=== PATIENT | female | born 1940 | race African-American/Black ===

== ENCOUNTER 2017-02-20 21:31 | Emergency (ER) | payer MEDICARE, MEDICAID ==
--- NOTE | 2017-02-20 21:50 | ER Document Report ---
ED Respiratory Problem - General Stated Complaint: BREATHING DIFFICULTY Time seen by provider: 21:45 Notes: Patient is a 76-year-old female that comes emergency department for chief complaint of difficulty breathing, she comes by EMS from [facility], she is a full code. EMS reports that patient is nonverbal with Alzheimer's, contractures, history of CHF and on lasix 40 mg BID. No cough or fever reported. On initial presentation patient with what appeared to be loud rhonchi heard without auscultation, EMS reports that patient had been " suctioned orally and had about 1 L of secretions". Patient also has a gastric feeding tube. TRAVEL OUTSIDE OF THE [place] IN LAST 30 DAYS: No - Related Data Allergies/Adverse Reactions: No Known Allergies Allergy (Verified 02/20/17 23:56) Past Medical History - General Information source: Transfer Record, Emergency Med Personnel - Social History Smoking Status: Never Smoker Frequency of alcohol use: None Drug Abuse: None Lives with: Skilled Nursing Family History: None - Past Medical History Cardiac Medical History: Reports: Hx Hypercholesterolemia, Hx Hypertension Pulmonary Medical History: Reports: Hx Sleep Apnea Comment Only: Hx Tuberculosis - UNKNOWN Neurological Medical History: Reports: Hx Seizures Endocrine Medical History: Reports: Hx Diabetes Mellitus Type 2 GI Medical History: Reports: Hx Gastroesophageal Reflux Disease Musculoskeltal Medical History: Reports Hx Arthritis Psychiatric Medical History: Reports: Hx Dementia, Hx Depression, Hx Schizophrenia Past Surgical History: Denies: Hx Hysterectomy, Hx Pacemaker - Immunizations Hx Diphtheria, Pertussis, Tetanus Vaccination: Yes Hx Pneumococcal Vaccination: 02/20/09 Review of Systems - Review of Systems Constitutional: No symptoms reported EENT: No symptoms reported Cardiovascular: No symptoms reported Respiratory: See HPI Gastrointestinal: No symptoms reported Genitourinary: No symptoms reported Female Genitourinary: No symptoms reported Musculoskeletal: No symptoms reported Skin: No symptoms reported Hematologic/Lymphatic: No symptoms reported Neurological/Psychological: No symptoms reported Physical Exam - Vital signs Vitals: Temp 97.6 F 02/20/17 21:35 Interpretation: Normal - General General appearance: Other - Patient sitting with legs contracted under her, right arm contracted over her, eyes open and looking at people but not responding otherwise - HEENT Head: Normocephalic, Atraumatic Eyes: Normal Conjunctiva: Normal Eyelashes: Normal Pupils: PERRL Mucous membranes: Dry Pharynx: Normal Neck: Normal - Respiratory Respiratory status: Tachypnea Breath sounds: Other - Some scattered rhonchi in the right lung region, no rales , no other abnormality noted Chest palpation: Normal - Cardiovascular Rhythm: Regular. No: Tachycardia Heart sounds: Normal auscultation, S1 appreciated, S2 appreciated - Abdominal Inspection: Normal, Other - Gastric tube present, appears new, appears clear, no surrounding erythema or other abnormalities Distension: No distension Bowel sounds: Normal Tenderness: Nontender. No: Tender Organomegaly: No organomegaly - Back Back: Normal, Nontender - Extremities General upper extremity: Other - Right arm contracted at her side General lower extremity: Other - Lower extremities contracted underneath her - Neurological Neuro grossly intact: Yes Cognition: Normal Orientation: AAOx4 Jazmine Coma Scale Eye Opening: Spontaneous Jazmine Coma Scale Verbal: Oriented Jazmine Coma Scale Motor: Obeys Commands Jazmine Coma Scale Total: 15 Speech: Normal Motor strength normal: LUE, RUE, LLE, RLE Sensory: Normal - Psychological Associated symptoms: Normal affect, Normal mood - Skin Skin Temperature: Warm Skin Moisture: Dry Skin Color: Normal Course - Re-evaluation Re-evalutation: Patient makes eye contact and follows me with her eyes but does not respond verbally. Patient with tachypnea, a few scattered rhonchi, no overt lower extremity edema, no Rales. Patient had a new blood pressure reading of 60s over 40s, I was called bedside, patient evaluated at bedside and noted to have increased tachypnea compared to prior, manual blood pressure performed and shows blood pressure has dropped to 80/40. No tachycardia, no hypoxia. Dr. Conway to bedside. X-ray came to bedside, chest x-ray generally appears clear, report pending. Patient has an 18 -gauge in the left before meals and a 20-gauge in the right forearm, IV fluids initiated. After a single IV fluid bolus blood pressure returned to normal. Rhonchi and vocalising resolved. Called primary longterm and inquired about CODE STATUS, in their system it is listed that she is full cod status/CPR, patient does not have a DO NOT RESUSCITATE sheet at the facility by their report and none was brought to our facility. Attempted to contact power of senior trial attorney at [phone] but no response was obtained. Chest x-ray, blood gas, CBC, chemistry generally unremarkable. Cardiac enzymes not elevated. EKG showing no ischemic findings or significant changes from prior. Patient given Ativan, after this tachypnea resolved. Patient taken off BiPAP because of workup and clear lung sounds. Patient very well appearing off of BiPAP on nasal cannula. After about an hour patient taken off nasal cannula as well. Patient with no decompensation on room air, monitored for an extended period. Discussed with Dr. Harrison again, patient has remained normotensive and not hypoxic for hours, is doing extremely well off BiPAP, has no symptoms after single bolus of IV fluids, workup unremarkable. Patient will be discharged back to longterm with follow-up with her provider and return precautions in place. - Vital Signs Vital signs: Temp Pulse Resp BP Pulse Ox 97.5 F 21 H 126/65 H 99 02/21/17 03:40 02/21/17 03:46 02/21/17 03:46 02/21/17 03:46 - Laboratory Result Diagrams: 02/20/17 21:50 02/20/17 21:50 Laboratory results interpreted by me: 02/20/17 02/20/17 02/20/17 21:50 21:50 22:30 RBC 3.24 L Hgb 10.4 L Hct 31.5 L RDW 15.3 H Plt Count 142 L VBG pH 7.45 H Carbon Dioxide 31 H BUN 63 H Glucose 119 H AST 39 H Total Protein 9.1 H Discharge - Discharge Clinical Impression: Shortness of breath, Hyperventilation Condition: Stable Disposition: HOME, SELF-CARE Additional Instructions: Secretions have cleared, she did require some hydration. Workup shows no acute abnormalities. Follow-up with primary care. Return the emergency department for any concerning symptoms including rapid or labored breathing, abnormal vital signs, fever, or any other concerning symptoms. Referrals: SANTOS ZULUAGA MD [Primary Care Provider] - Follow up as needed
[2017-02-20 22:17] LABS: ABSOLUTE EOSINOPHILS # (AUTO) 0.2 10^3/uL (0.0-0.6); ABSOLUTE LYMPHOCYTES (AUTO) 2.8 10^3/uL (0.5-4.7); ABSOLUTE MONOCYTES (AUTO) 0.5 10^3/uL (0.1-1.4); BASOPHILS % (AUTO) 0.5 % (0-2); EOSINOPHILS % (AUTO) 3.1 % (0-6); HEMATOCRIT 31.5 % (36.0-47.0); HEMOGLOBIN 10.4 g/dL (12.0-15.5); HGB HCT DIFFERENCE -0.3; MEAN CORPUSCULAR HEMOGLOBIN 32.1 pg (27.0-33.4); MEAN CORPUSCULAR HGB CONC 33.1 g/dL (32.0-36.0); MEAN CORPUSCULAR VOLUME 97 fl (80-97); MONOCYTES % (AUTO) 7.9 % (3-13); RED BLOOD COUNT 3.24 10^6/uL (3.72-5.28); RED CELL DISTRIBUTION WIDTH 15.3 % (11.5-14.0); SEGMENTED NEUTROPHILS % (AUTO) 45.5 % (42-78); WHITE BLOOD COUNT 6.6 10^3/uL (4.0-10.5)
[2017-02-20] MEDS ORDERED: NORMAL SALINE 1000 ML 1,000 ML IV ONE ×2 (22:30)
[2017-02-20 22:36] LABS: VENOUS BLOOD BASE EXCESS 5.8 mmol/L; VENOUS BLOOD HCO3 30.6 mmol/L (20-32); VENOUS BLOOD PCO2 45.4 mmHg (35-63); VENOUS BLOOD PH 7.45 (7.30-7.42)
[2017-02-20 22:37] LABS: ALANINE AMINOTRANSFERASE 16 U/L (9-52); ALBUMIN 3.9 g/dL (3.5-5.0); ALKALINE PHOSPHATASE 94 U/L (38-126); ANION GAP 15 (5-19); ASPARTATE AMINO TRANSFERASE 39 U/L (14-36); BILIRUBIN,DIRECT 0.3 mg/dL (0.0-0.4); BILIRUBIN,TOTAL 0.5 mg/dL (0.2-1.3); BLOOD UREA NITROGEN 63 mg/dL (7-20); CALCIUM 9.5 mg/dL (8.4-10.2); CARBON DIOXIDE 31 mmol/L (22-30); CHLORIDE 98 mmol/L (98-107); CREATINE KINASE 65 U/L (30-135); CREATININE RESULT 0.77 mg/dL (0.52-1.25); GLUCOSE 119 mg/dL (75-110); TOTAL PROTEIN 9.1 g/dL (6.3-8.2)
--- NOTE | 2017-02-20 22:47 | EKG REPORT ---
SEVERITY:- ABNORMAL ECG - SINUS RHYTHM VENTRICULAR PREMATURE COMPLEX LEFT VENTRICULAR HYPERTROPHY NONSPECIFIC T ABNORMALITIES, INFERIOR LEADS PROLONGED QT INTERVAL : Confirmed by: John Ganadra 20-Feb-2017 22:46:22
[2017-02-20 22:49] LABS: CREATINE KINASE MB 1.41 ng/mL (<4.55)
[2017-02-20 22:50] LABS: TROPONIN I < 0.012 ng/mL
[2017-02-20] MEDS ORDERED: LORAZEPAM 0.5 MG TABLET PO ONE (23:17)
[2017-02-21 03:49] VITALS: BP 126/65
--- NOTE | 2017-02-22 00:59 | ER Document Report ---
Doctor's Note Notes: 02/22/17 00:57 I was giving a culture form from the nurse on that the patient has a gram- positive cocci preliminary blood culture. I did review the patient's note from last night. Appears the patient initially has difficulty breathing and was hypotensive. It appears that she responded well to simple fluid bolus her left ear evaluation was otherwise unremarkable. She apparently did well for several hours and therefore is discharged back to [facility]. I'll have the charge nurse call the facility back. If the patient is feeling unwell in any way, has any abnormal vital signs, or has a fever she is to return to ER immediately for evaluation. If she is looking very well and has normal vital signs than she does not have to come back immediately until we have the final results of the culture.
== END 2017-02-21 04:00 | disposition home or self-care (01) ==
LOC: ER 21:31
DX: R06.02 Shortness of breath (principal); R06.4 Hyperventilation; R06.00 Dyspnea, unspecified; G30.9 Alzheimer's disease, unspecified; F02.80 Dementia in other diseases classified elsewhere, unspecified severity, without behavioral disturbance, psychotic disturbance, mood disturbance, and anxiety; I50.9 Heart failure, unspecified; E78.00 Pure hypercholesterolemia, unspecified; I10 Essential (primary) hypertension; E11.9 Type 2 diabetes mellitus without complications; K21.9 Gastro-esophageal reflux disease without esophagitis; Z93.1 Gastrostomy status
CPT/HCPCS: 93005; 99285; 96361; 96374; 36415; 87040; 82553; 82550; 85025; 87077; 80053; 84484; 87186; 82803; 71010; 93010; 94660; J7030; A9270

== ENCOUNTER 2017-02-25 04:43 | Emergency (ER) | payer MEDICARE, MEDICAID ==
--- NOTE | 2017-02-25 04:56 | ER Document Report ---
ED Respiratory Problem - General Stated Complaint: DIFFICULITY BREATHING Time seen by provider: 04:45 Notes: Patient is a 76-year-old female that comes emergency department from [facility] for chief complaint of difficulty breathing. EMS reports that patient was initially hypoxic, she was suctioned from oral secretions and after this her oxygen saturations normalized. Patient has a history of Alzheimer's, contractures, CHF and when necessary Lasix for edema. She is a full code. No fever, no altered mental status from baseline, no other symptoms reported. Patient has a gastric feeding tube. TRAVEL OUTSIDE OF THE [place] IN LAST 30 DAYS: No - Related Data Allergies/Adverse Reactions: No Known Allergies Allergy (Verified 02/20/17 23:56) Past Medical History - General Information source: Transfer Record, Emergency Med Personnel - Social History Smoking Status: Never Smoker Frequency of alcohol use: None Drug Abuse: None Lives with: Care Home Family History: None - Past Medical History Cardiac Medical History: Reports: Hx Hypercholesterolemia, Hx Hypertension Pulmonary Medical History: Reports: Hx Sleep Apnea Comment Only: Hx Tuberculosis - UNKNOWN Neurological Medical History: Reports: Hx Seizures Endocrine Medical History: Reports: Hx Diabetes Mellitus Type 2 GI Medical History: Reports: Hx Gastroesophageal Reflux Disease Musculoskeltal Medical History: Reports Hx Arthritis Psychiatric Medical History: Reports: Hx Dementia, Hx Depression, Hx Schizophrenia Past Surgical History: Reports: Hx Abdominal Surgery - Peg tube, Hx Cardiac Surgery - Pacemaker. Denies: Hx Hysterectomy, Hx Pacemaker - Immunizations Hx Diphtheria, Pertussis, Tetanus Vaccination: Yes Hx Pneumococcal Vaccination: 02/20/09 Review of Systems - Review of Systems Constitutional: No symptoms reported EENT: No symptoms reported Cardiovascular: No symptoms reported Respiratory: See HPI Gastrointestinal: No symptoms reported Genitourinary: No symptoms reported Female Genitourinary: No symptoms reported Musculoskeletal: No symptoms reported Skin: No symptoms reported Hematologic/Lymphatic: No symptoms reported Neurological/Psychological: No symptoms reported Physical Exam - Vital signs Vitals: Resp 19 02/25/17 04:52 Interpretation: Normal - General General appearance: Appears well, Alert In distress: None - Patient looks around the room, responds painful stimuli, is nonverbal, reportedly at baseline - HEENT Head: Normocephalic, Atraumatic Eyes: Normal Conjunctiva: Normal Eyelashes: Normal Pupils: PERRL Mucous membranes: Other - Moderately large amount of oral secretions Neck: Normal - Respiratory Respiratory status: No respiratory distress, Tachypnea. No: Labored Chest status: Nontender Breath sounds: Normal. No: Decreased air movement, Nonproductive cough, Wheezing Chest palpation: Normal - Cardiovascular Rhythm: Regular, Tachycardia - Borderline Heart sounds: Normal auscultation, S1 appreciated, S2 appreciated Murmur: Yes - Abdominal Inspection: Normal Distension: No distension Bowel sounds: Normal Tenderness: Nontender. No: Tender, Guarding Organomegaly: No organomegaly - Back Back: Normal, Nontender - Extremities General upper extremity: Other - Right arm contracted worse than the left General lower extremity: Other - Bilateral lower extremity contractures, no peripheral edema noted, otherwise unremarkable exam - Neurological Sensory: Normal - Skin Skin Temperature: Warm Skin Moisture: Dry Skin Color: Normal Course - Re-evaluation Re-evalutation: Patient initially had a large amount of oral secretions and patient has tachypnea. Oral secretions suctioned by respiratory at bedside. Afterwards tachypnea resolved. Lungs clear, no hypoxia. No hypoxia on room air. On reexamination patient has mild tachypnea again, appears anxious, began to be thickening after being again suctioned orally (much less obtain second time). Patient given her PRN Ativan 0.5 mg tablet. CBC, chemistry, cardiac enzymes, EKG, venous blood gas, BNP all unremarkable and at baseline. Mild elevation of BNP, patient given a small amount of IV fluids. Patient monitored again, maintains on room air with no difficulty, became calm and relaxed, remained well appearing during her monitoring period. Patient had the same presentation about a week ago in this department. Will recommend suctioning of her oral secretions to prevent difficulty with airway. No acute findings. Stable for transfer back to long-term care facility. - Vital Signs Vital signs: Temp Pulse Resp BP Pulse Ox 98.2 F 35 H 96/56 L 96 02/25/17 05:03 02/25/17 05:30 02/25/17 05:30 02/25/17 05:30 - Laboratory Result Diagrams: 02/25/17 04:54 02/25/17 04:54 Laboratory results interpreted by me: 02/25/17 02/25/17 02/25/17 04:54 04:54 05:18 RBC 3.02 L Hgb 9.8 L Hct 29.3 L RDW 15.6 H VBG pH 7.50 H BUN 49 H Direct Bilirubin 0.5 H Total Protein 9.2 H Discharge - Discharge Clinical Impression: Excessive oral secretions, Tachypnea Condition: Stable Disposition: HOME, SELF-CARE Additional Instructions: Patient has excessive oral secretions, she needs to be regularly suctioned. When the secretions buildup her oxygen level drops and she has rapid breathing. However her chest x-ray, her evaluation after suctioning, and her entire workup shows no acute abnormality. Follow up with her primary provider. Return to the emergency department for any concerning symptoms.
[2017-02-25 05:13] LABS: ABSOLUTE BASOPHILS # (AUTO) 0.1 10^3/uL (0.0-0.2); ABSOLUTE EOSINOPHILS # (AUTO) 0.2 10^3/uL (0.0-0.6); ABSOLUTE LYMPHOCYTES (AUTO) 2.5 10^3/uL (0.5-4.7); ABSOLUTE MONOCYTES (AUTO) 0.8 10^3/uL (0.1-1.4); ABSOLUTE NEUT (AUTO) 5.3 10^3/uL (1.7-8.2); BASOPHILS % (AUTO) 0.9 % (0-2); HEMATOCRIT 29.3 % (36.0-47.0); HEMOGLOBIN 9.8 g/dL (12.0-15.5); HGB HCT DIFFERENCE 0.1; LYMPHOCYTES % (AUTO) 28.5 % (13-45); MEAN CORPUSCULAR HEMOGLOBIN 32.4 pg (27.0-33.4); MEAN CORPUSCULAR HGB CONC 33.4 g/dL (32.0-36.0); MEAN CORPUSCULAR VOLUME 97 fl (80-97); MONOCYTES % (AUTO) 8.6 % (3-13); RED BLOOD COUNT 3.02 10^6/uL (3.72-5.28); RED CELL DISTRIBUTION WIDTH 15.6 % (11.5-14.0); WHITE BLOOD COUNT 8.8 10^3/uL (4.0-10.5)
[2017-02-25 05:27] LABS: ALANINE AMINOTRANSFERASE 17 U/L (9-52); ALBUMIN 3.7 g/dL (3.5-5.0); ALKALINE PHOSPHATASE 87 U/L (38-126); ANION GAP 11 (5-19); ASPARTATE AMINO TRANSFERASE 24 U/L (14-36); BILIRUBIN,DIRECT 0.5 mg/dL (0.0-0.4); BILIRUBIN,TOTAL 0.5 mg/dL (0.2-1.3); BLOOD UREA NITROGEN 49 mg/dL (7-20); CALCIUM 9.4 mg/dL (8.4-10.2); CARBON DIOXIDE 30 mmol/L (22-30); CHLORIDE 103 mmol/L (98-107); CREATINE KINASE 64 U/L (30-135); CREATININE RESULT 0.79 mg/dL (0.52-1.25); GLUCOSE 110 mg/dL (75-110); POTASSIUM 4.8 mmol/L (3.6-5.0); SODIUM 144.4 mmol/L (137-145); TOTAL PROTEIN 9.2 g/dL (6.3-8.2)
[2017-02-25 05:34] LABS: VENOUS BLOOD BASE EXCESS 5.2 mmol/L; VENOUS BLOOD HCO3 28.7 mmol/L (20-32); VENOUS BLOOD PCO2 37.9 mmHg (35-63); VENOUS BLOOD PH 7.5 (7.30-7.42)
[2017-02-25 05:39] LABS: CREATINE KINASE MB 0.76 ng/mL (<4.55)
[2017-02-25 05:52] LABS: TROPONIN I < 0.012 ng/mL
[2017-02-25] MEDS ORDERED: NORMAL SALINE 1000 ML 500 ML IV ONE (05:54)
[2017-02-25] MEDS ORDERED: LORAZEPAM 0.5 MG TABLET PO ONE (06:00)
--- NOTE | 2017-02-25 08:18 | EKG REPORT ---
SEVERITY:- BORDERLINE ECG - SINUS TACHYCARDIA LEFT AXIS DEVIATION : Confirmed by: Everett Batista MD 25-Feb-2017 08:17:18
[2017-02-25 08:26] VITALS: BP 137/77
== END 2017-02-25 08:29 | disposition home or self-care (01) ==
LOC: ER 04:43
DX: R06.00 Dyspnea, unspecified (principal); R06.82 Tachypnea, not elsewhere classified; K11.7 Disturbances of salivary secretion; E78.00 Pure hypercholesterolemia, unspecified; I10 Essential (primary) hypertension; E11.9 Type 2 diabetes mellitus without complications; G30.9 Alzheimer's disease, unspecified; F02.80 Dementia in other diseases classified elsewhere, unspecified severity, without behavioral disturbance, psychotic disturbance, mood disturbance, and anxiety; I50.9 Heart failure, unspecified; Z95.0 Presence of cardiac pacemaker; Z93.1 Gastrostomy status
CPT/HCPCS: 93005; 99285; 96360; 36415; 82553; 82550; 85025; 80053; 84484; 82803; 83880; 71010; 93010; J7030; A9270

== ENCOUNTER 2017-03-06 03:14 | Emergency (ER) | payer MEDICARE, MEDICAID ==
--- NOTE | 2017-03-06 03:25 | ER Document Report ---
ED General - General Stated Complaint: G TUBE MALFUNCTION Time Seen by Provider: 03/06/17 03:20 Notes: Patient is a 76-year-old female that comes emergency department with chief complaint of PEG tube leaking which apparently began tonight. Patient comes by EMS from long-term care facility. Patient is demented, nonverbal, has multiple limb contractures. No other abnormalities reported including fever. TRAVEL OUTSIDE OF THE [place] IN LAST 30 DAYS: No - Related Data Allergies/Adverse Reactions: No Known Allergies Allergy (Verified 02/20/17 23:56) Past Medical History - General Information source: Emergency Med Personnel - Social History Smoking Status: Never Smoker Frequency of alcohol use: None Drug Abuse: None Lives with: Long-Term Family History: None - Past Medical History Cardiac Medical History: Reports: Hx Hypercholesterolemia, Hx Hypertension Pulmonary Medical History: Reports: Hx Sleep Apnea Comment Only: Hx Tuberculosis - UNKNOWN Neurological Medical History: Reports: Hx Seizures Endocrine Medical History: Reports: Hx Diabetes Mellitus Type 2 GI Medical History: Reports: Hx Gastroesophageal Reflux Disease Musculoskeltal Medical History: Reports Hx Arthritis Psychiatric Medical History: Reports: Hx Dementia, Hx Depression, Hx Schizophrenia Past Surgical History: Reports: Hx Abdominal Surgery - Peg tube, Hx Cardiac Surgery - Pacemaker. Denies: Hx Hysterectomy, Hx Pacemaker - Immunizations Hx Diphtheria, Pertussis, Tetanus Vaccination: Yes Hx Pneumococcal Vaccination: 02/20/09 Review of Systems - Review of Systems Constitutional: No symptoms reported EENT: No symptoms reported Cardiovascular: No symptoms reported Respiratory: No symptoms reported Gastrointestinal: See HPI Genitourinary: No symptoms reported Female Genitourinary: No symptoms reported Musculoskeletal: No symptoms reported Skin: No symptoms reported Hematologic/Lymphatic: No symptoms reported Neurological/Psychological: No symptoms reported Physical Exam - Vital signs Vitals: Temp Pulse Resp BP Pulse Ox 97.7 F 93 16 93/51 L 100 03/06/17 03:26 03/06/17 03:26 03/06/17 03:26 03/06/17 03:26 03/06/17 03:26 Interpretation: Normal - General In distress: None - Patient nonverbal, contracted, she does occasionally watch others going around the room, responds to discomfort/stimuli - HEENT Head: Normocephalic, Atraumatic Eyes: Normal Pupils: PERRL - Respiratory Respiratory status: No respiratory distress Chest status: Nontender Breath sounds: Normal. No: Decreased air movement, Nonproductive cough, Wheezing Chest palpation: Normal - Cardiovascular Rhythm: Regular. No: Tachycardia Heart sounds: Normal auscultation, S1 appreciated, S2 appreciated Murmur: No - Abdominal Inspection: Other - PEG tube in place, there is a towel wrapped around this which has a moderately large amount of gastric contents on the towel; mild irritation at the base of the tubing, no purulent drainage or other abnormality noted Distension: No distension Bowel sounds: Normal Tenderness: Nontender. No: Tender Organomegaly: No organomegaly - Back Back: Normal, Nontender - Extremities General upper extremity: Nontender, Normal color, Normal temperature. No: Edema General lower extremity: Nontender, Normal color, Normal temperature. No: Edema - Neurological Sensory: Normal - Skin Skin Temperature: Warm Skin Moisture: Dry Skin Color: Normal Course - Re-evaluation Re-evalutation: PEG tube is definitely leaking, there is a large amount of leakage over the towel that was placed around the tube. Initially checked the balloon to see if this was not filled completely, however this was filled to capacity. The tube does not appear to be new. Area around the tube does not appear to be infected with only mild irritation. No fever. Patient at baseline. Discussed with Dr. Moody, recommends simply replacing the tube. New 18 Guyanese tube inserted as replacement after removal. This was performed without any difficulty using sterile procedure. Flushed without any difficulty and checked for placement with what appears to be good placement. - Vital Signs Vital signs: Temp Pulse Resp BP Pulse Ox 97.7 F 88 16 100/82 100 03/06/17 05:54 03/06/17 05:54 03/06/17 05:54 03/06/17 05:54 03/06/17 05:54 Procedures - Additional Procedures G-tube replacement. Additional Procedures: Gastric tube replacement - Gastric tube replacement performed using a 18 Guyanese tubing. At first the current tubing was removed by aspirating all of the fluid out of the port which reached a total of 15 mL, this was removed entirely, area was cleaned with surgical cleanser and 4 x 4's, sterile procedure used to insert a new 18 fr gastric tube, inflated 6 mL balloon with sterile water, dressing fitted, check for placement with flushing and auscultation. Discharge - Discharge Clinical Impression: Malfunction of gastrostomy tube Condition: Stable Disposition: HOME, SELF-CARE Additional Instructions: The old tube was noted to be dysfunctional and leaking, this was replaced. Follow-up with primary care. Return for any concerning symptoms.
[2017-03-06 05:55] VITALS: BP 100/82
== END 2017-03-06 05:58 | disposition home or self-care (01) ==
LOC: ER 03:14
PROC: 0D20XUZ Change Feeding Device in Upper Intestinal Tract, External Approach (ICD-10-PCS; principal; 2017-03-06)
DX: K94.23 Gastrostomy malfunction (principal); F03.90 Unspecified dementia, unspecified severity, without behavioral disturbance, psychotic disturbance, mood disturbance, and anxiety; I10 Essential (primary) hypertension; E11.9 Type 2 diabetes mellitus without complications
CPT/HCPCS: 99283

== ENCOUNTER 2017-12-15 11:52 | Observation (INO) | payer MEDICARE, MEDICAID ==
[~2017-12-15 11:52] MED LIST: POTASSI CL 20 MEQ/50 ML RIDER 20 MEQ/50 ML RTUPB IV SCH
--- NOTE | 2017-12-15 13:12 | ER Document Report ---
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 Patient has been distended and they do not know when her last bowel movement was. Patient is nonverbal, demented, not able to give me any history. TRAVEL OUTSIDE OF THE [place] IN LAST 30 DAYS: No - Related Data Allergies/Adverse Reactions: No Known Allergies Allergy (Verified 02/20/17 23:56) Past Medical History - General Information source: Patient - Social History Smoking Status: Unknown if Ever Smoked Family History: None Patient has suicidal ideation: No Patient has homicidal ideation: No - Past Medical History Cardiac Medical History: Reports: Hx Hypercholesterolemia, Hx Hypertension Pulmonary Medical History: Reports: Hx Sleep Apnea Comment Only: Hx Tuberculosis - UNKNOWN Neurological Medical History: Reports: Hx Seizures Endocrine Medical History: Reports: Hx Diabetes Mellitus Type 2 Renal/ Medical History: Denies: Hx Peritoneal Dialysis GI Medical History: Reports: Hx Gastroesophageal Reflux Disease Musculoskeltal Medical History: Reports Hx Arthritis Psychiatric Medical History: Reports: Hx Dementia, Hx Depression, Hx Schizophrenia Past Surgical History: Reports: Hx Abdominal Surgery - Peg tube, Hx Cardiac Surgery - Pacemaker. Denies: Hx Hysterectomy, Hx Pacemaker - Immunizations Hx Diphtheria, Pertussis, Tetanus Vaccination: Yes Hx Pneumococcal Vaccination: 02/20/09 Review of Systems - Review of Systems Constitutional: No symptoms reported EENT: No symptoms reported Cardiovascular: No symptoms reported Respiratory: No symptoms reported Gastrointestinal: See HPI Genitourinary: No symptoms reported Female Genitourinary: No symptoms reported Musculoskeletal: No symptoms reported Skin: No symptoms reported Hematologic/Lymphatic: No symptoms reported Neurological/Psychological: See HPI Physical Exam - Vital signs Vitals: Temp 97.3 F 12/15/17 12:00 - Notes Notes: PHYSICAL EXAMINATION: GENERAL: Chronically ill-appearing, nonverbal, demented in no acute distress. HEAD: Atraumatic, normocephalic. EYES: Pupils equal round and reactive to light, extraocular movements intact, sclera anicteric, conjunctiva are normal. ENT: Airway patent distended, G-tube in place but yellow clear fluid leaking around, no signs of erythema or infection seen LUNGS: CTAB and equal. No wheezes rales or rhonchi. HEART: Regular rate and rhythm without murmurs ABDOMEN: Distended, G-tube in place, leaking yellow clear fluid, no signs of erythema or purulent drainage EXTREMITIES: contracted, no pitting edema. No cyanosis. NEUROLOGICAL: Contracted, nonverbal PSYCH: Nonverbal, demented SKIN: Warm, Dry, normal turgor, no rashes or lesions noted Course - Re-evaluation Re-evalutation: 12/15/17 18:45 PEG tube was replaced successfully, auscultation reports good bowel sounds with placement, KUB with Gastrografin was performed to confirm placement which it did , but also reports acid reflux into the esophagus and fecal impaction. Patient was given an enema which did relieve some stool. Whenever I went in to manually disimpact her patient went into about 4 seconds of nonsustained V. tach. Potassium is 2.7 on lab work. Patient is being given potassium now. Dr. Gandara, link cutter on-call was consulted and wants her admitted to that he can evaluate her for this. He cannot give me a reason that this may have happened at this time. I do not know if she was may be trying to have a bowel movement as she had a very large bowel movement after and has not had any V. tach since. Dr. Torrez, patient's primary care provider however agrees to admit patient at this time to have her evaluated for this. - Vital Signs Vital signs: Temp Pulse Resp BP Pulse Ox 97.3 F 18 149/60 H 96 12/15/17 12:10 12/15/17 17:00 12/15/17 14:01 12/15/17 17:00 - Laboratory Result Diagrams: 12/15/17 17:50 12/15/17 17:50 Laboratory results interpreted by me: 12/15/17 12/15/17 17:50 17:50 RBC 3.26 L Hgb 10.1 L Hct 30.3 L RDW 14.6 H Sodium 150.1 H Potassium 2.7 L* Chloride 97 L Carbon Dioxide 40 H* BUN 38 H Glucose 113 H Magnesium 2.6 H Direct Bilirubin 0.7 H Procedures - Additional Procedures g tube placement Time performed: 13:00 Additional Procedures: Gastric tube replacement Notes: 12/15/17 13:11 Gastric tube replacement - Gastric tube replacement performed using a 18 Macedonian tubing. At first the current tubing was removed by aspirating all of the fluid out of the port which reached a total of 15 mL, this was removed entirely, area was cleaned with surgical cleanser and 4 x 4's, sterile procedure used to insert a new 14 fr gastric tube, inflated 6 mL balloon with sterile water, dressing fitted, check for placement with flushing and auscultation. Discharge - Discharge Clinical Impression: Hypokalemia, Ventricular tachycardia (paroxysmal) Condition: Stable Disposition: ADMITTED OBSERVATION Admitting Provider: Lore
--- NOTE | 2017-12-15 14:55 | RADIOLOGY REPORT (SQ) ---
EXAM DESCRIPTION: KUB/ABDOMEN (SINGLE VIEW) COMPLETED DATE/TIME: 12/15/2017 2:42 pm REASON FOR STUDY: g tube placement COMPARISON: CT abdomen pelvis 10/03/2011 NUMBER OF VIEWS: One view. TECHNIQUE: Supine radiographic image of the abdomen acquired. LIMITATIONS: None. FINDINGS: BOWEL GAS PATTERN: Massive amount of stool in the rectum worrisome for fecal impaction. T here is diffuse marked gaseous distention of the sigmoid colon, at a moderate amount of air throughou t the remainder of the colon. No air-fluid levels in small bowel worrisome for small bowel obstruction. Small amount of oral contrast in the gastrostomy tube. There is reflux of contrast into the distal e sophagus. No extravasation of contrast around the gastrostomy tube tract CALCIFICATIONS: 2 cm calcification over the midline pelvis likely a bladder calculus SOFT TISSUES: No gross mass or suggestion of organomegaly. HARDWARE: None in the abdomen. BONES: Osteoporotic OTHER: No other significant finding. IMPRESSION: No extravasation of contrast from the patient's gastrostomy tube or stomach. Gastroesophageal reflux with contrast in the thoracic esophagus Massive amount of stool in the rectum worrisome for fecal impaction Findings discussed with Nilda Brothers in the emergency room TECHNICAL DOCUMENTATION: JOB ID: [id number] [employer]- All Rights Reserved
[2017-12-15] MEDS ORDERED: RANITIDINE HCL SYRUP 150 MG/10 ML UDCUP GT ONE (15:14)
[2017-12-15 18:01] LABS: ABSOLUTE EOSINOPHILS # (AUTO) 0.1 10^3/uL (0.0-0.6); ABSOLUTE LYMPHOCYTES (AUTO) 1.9 10^3/uL (0.5-4.7); ABSOLUTE MONOCYTES (AUTO) 0.5 10^3/uL (0.1-1.4); ABSOLUTE NEUT (AUTO) 3.8 10^3/uL (1.7-8.2); BASOPHILS % (AUTO) 0.3 % (0-2); EOSINOPHILS % (AUTO) 1.1 % (0-6); HEMATOCRIT 30.3 % (36.0-47.0); HEMOGLOBIN 10.1 g/dL (12.0-15.5); LYMPHOCYTES % (AUTO) 29.6 % (13-45); MEAN CORPUSCULAR HGB CONC 33.4 g/dL (32.0-36.0); MEAN CORPUSCULAR VOLUME 93 fl (80-97); MONOCYTES % (AUTO) 8.6 % (3-13); PLATELET COUNT 224 10^3/uL (150-450); RED BLOOD COUNT 3.26 10^6/uL (3.72-5.28); RED CELL DISTRIBUTION WIDTH 14.6 % (11.5-14.0); SEGMENTED NEUTROPHILS % (AUTO) 60.4 % (42-78); TOTAL CELLS COUNTED % (AUTO) 100 %; WHITE BLOOD COUNT 6.2 10^3/uL (4.0-10.5)
[2017-12-15 18:14] LABS: ALANINE AMINOTRANSFERASE 25 U/L (9-52); ALBUMIN 3.6 g/dL (3.5-5.0); ALKALINE PHOSPHATASE 89 U/L (38-126); ASPARTATE AMINO TRANSFERASE 26 U/L (14-36); BILIRUBIN,DIRECT 0.7 mg/dL (0.0-0.4); BILIRUBIN,TOTAL 0.7 mg/dL (0.2-1.3); BLOOD UREA NITROGEN 38 mg/dL (7-20); CHLORIDE 97 mmol/L (98-107); GLUCOSE 113 mg/dL (75-110); SODIUM 150.1 mmol/L (137-145); TOTAL PROTEIN 7.6 g/dL (6.3-8.2)
[2017-12-15 18:15] LABS: ANION GAP 13 (5-19)
[2017-12-15 18:26] LABS: CARBON DIOXIDE 40 mmol/L (22-30); POTASSIUM 2.7 mmol/L (3.6-5.0)
[2017-12-15] MEDS ORDERED: POTASSIUM CHLORIDE 20 MEQ/15 ML UDCUP PO ONE (18:30)
[2017-12-15] MEDS: DEXTROSE 5%-WATER 1000 ML 1,000 ML IV PRN (22:44)
[2017-12-15 23:01] LABS: CREATINE KINASE MB 0.56 ng/mL (<4.55); TROPONIN I 0.012 ng/mL
[2017-12-15 23:05] LABS: FREE T4 (FREE THYROXINE) 2.49 ng/dL (0.78-2.19)
[2017-12-15 23:19] LABS: THYROID STIMULATING HORMONE 2.46 uIU/mL (0.47-4.68)
[2017-12-16 05:07] LABS: ABSOLUTE EOSINOPHILS # (AUTO) 0.1 10^3/uL (0.0-0.6); ABSOLUTE LYMPHOCYTES (AUTO) 1.8 10^3/uL (0.5-4.7); ABSOLUTE MONOCYTES (AUTO) 0.5 10^3/uL (0.1-1.4); ABSOLUTE NEUT (AUTO) 4.3 10^3/uL (1.7-8.2); BASOPHILS % (AUTO) 0.2 % (0-2); EOSINOPHILS % (AUTO) 1.2 % (0-6); HEMOGLOBIN 9.6 g/dL (12.0-15.5); LYMPHOCYTES % (AUTO) 26.5 % (13-45); MEAN CORPUSCULAR HEMOGLOBIN 31.1 pg (27.0-33.4); MEAN CORPUSCULAR HGB CONC 33.2 g/dL (32.0-36.0); MEAN CORPUSCULAR VOLUME 94 fl (80-97); MONOCYTES % (AUTO) 7.9 % (3-13); PLATELET COUNT 249 10^3/uL (150-450); RED CELL DISTRIBUTION WIDTH 14.8 % (11.5-14.0); SEGMENTED NEUTROPHILS % (AUTO) 64.2 % (42-78); TOTAL CELLS COUNTED % (AUTO) 100 %; WHITE BLOOD COUNT 6.7 10^3/uL (4.0-10.5)
[2017-12-16 05:33] LABS: ALANINE AMINOTRANSFERASE 31 U/L (9-52); ALBUMIN 3.7 g/dL (3.5-5.0); ALKALINE PHOSPHATASE 90 U/L (38-126); ANION GAP 11 (5-19); ASPARTATE AMINO TRANSFERASE 30 U/L (14-36); BILIRUBIN,DIRECT 0.9 mg/dL (0.0-0.4); BILIRUBIN,TOTAL 1.1 mg/dL (0.2-1.3); BLOOD UREA NITROGEN 36 mg/dL (7-20); CALCIUM 9.4 mg/dL (8.4-10.2); CARBON DIOXIDE 37 mmol/L (22-30); CHLORIDE 102 mmol/L (98-107); GLUCOSE 128 mg/dL (75-110); POTASSIUM 3.5 mmol/L (3.6-5.0); SODIUM 150.4 mmol/L (137-145); TOTAL PROTEIN 7.2 g/dL (6.3-8.2)
[2017-12-16 05:34] LABS: CREATINE KINASE MB 0.43 ng/mL (<4.55); TROPONIN I 0.017 ng/mL
[2017-12-16] MEDS: ENOXAPARIN SODIUM INJ 40 MG/0.4 ML DISP.SYRIN SUBCUT SCH (10:23)
[2017-12-16] MEDS ORDERED: INFLUENZA ADLT QUAD (36MOS+) 2017-18 VAC 0.5 ML SYR IM PRN (11:08)
[2017-12-16 12:05] LABS: TROPONIN I < 0.012 ng/mL
--- NOTE | 2017-12-16 13:09 | EKG REPORT ---
SEVERITY:- ABNORMAL ECG - SINUS RHYTHM LEFT VENTRICULAR HYPERTROPHY BORDERLINE T ABNORMALITIES, INFERIOR LEADS : Confirmed by: Everett Batista MD 16-Dec-2017 13:09:08
--- NOTE | 2017-12-16 17:58 | XCELERA REPORT ---
[address] [address] Transthoracic Echocardiogram Report Name: PARADISE ANTUNEZ Age: 77 yrs Gender: Female : 1940 Patient Status: Inpatient Patient Location: [address] [place], [place] [id number] Study Date: 12/16/2017 02:14 PM Height: 60 in Weight: 157 lb BSA: 1.7 m2 Procedure: A complete two-dimensional transthoracic echocardiogram was performed (2D, M-mode, spectral and color flow Doppler). The study was technically adequate with some images being suboptimal in quality. Reason For Study: Evaluate V. tach Ordering Physician: JOHN LACY Performed By: Shoshana Pandya Interpretation Summary The left ventricular ejection fraction is normal. Doppler measurements suggest pseudonormalized left ventricular relaxation, which is associated with grade II/IV or mild to moderate diastolic dysfunction There is borderline concentric left ventricular hypertrophy. The left ventricle is grossly normal size. Wall motion cannot be accurately commented on, but no definite regional wall motion abnormalities noted. The right ventricular systolic function is normal. The right atrium is normal in size The left atrial size is normal. There is a mild amount of mitral regurgitation There is no mitral valve stenosis. No aortic regurgitation is present. There is no aortic valve stenosis There is a mild amount of tricuspid regurgitation There is mild pulmonary hypertension by echo Right ventricular systolic pressure is estimated to be elevated at 30- 40mmHg. The aortic root is not well visualized but is probably normal size. The inferior vena cava was not well visualized There is no pericardial effusion. MMode/2D Measurements & Calculations RVDd: 2.3 cm LVIDd: 4.1 cm FS: 30.6 % Ao root diam: 2.2 cm IVSd: 0.89 cm LVIDs: 2.8 cm EDV(Teich): 73.4 ml LVPWd: 0.92 cm ESV(Teich): 30.3 ml Ao root area: 3.8 cm2 EF(Teich): 58.7 % LA dimension: 3.3 cm Doppler Measurements & Calculations MV E max lorna: MV P1/2t max lorna: Ao V2 max: LV V1 max P.7 cm/sec 55.9 cm/sec 117.1 cm/sec 2.2 mmHg MV A max lorna: MV P1/2t: 73.7 msec Ao max PG: LV V1 max: 85.6 cm/sec 5.5 mmHg 74.0 cm/sec MV E/A: 0.66 MVA(P1/2t): 3.0 cm2 MV dec slope: 222.2 cm/sec2 MV dec time: 0.26 sec PA V2 max: TR max lorna: 54.4 cm/sec 247.0 cm/sec PA max PG: TR max P.4 mmHg 1.2 mmHg Left Ventricle The left ventricle is grossly normal size. There is borderline concentric left ventricular hypertrophy. The left ventricular ejection fraction is normal. Doppler measurements suggest pseudonormalized left ventricular relaxation, which is associated with grade II/IV or mild to moderate diastolic dysfunction. Wall motion cannot be accurately commented on, but no definite regional wall motion abnormalities noted. Right Ventricle The right ventricle is normal in size, thickness and function. There is normal right ventricular wall thickness. The right ventricular systolic function is normal. Atria The right atrium is normal in size. The left atrial size is normal. Interarterial septum not well visualized and not well dopplered. Cannot comment on ASD/PFO presence. Mitral Valve The mitral valve is grossly normal. There is no mitral valve stenosis. There is a mild amount of mitral regurgitation. Aortic Valve The aortic valve is grossly normal. There is no aortic valve stenosis. No aortic regurgitation is present. Tricuspid Valve The tricuspid valve is not well visualized, but is grossly normal. There is no tricuspid stenosis. There is a mild amount of tricuspid regurgitation. There is mild pulmonary hypertension by echo. Right ventricular systolic pressure is estimated to be elevated at 30-40mmHg. Pulmonic Valve The pulmonic valve is not well visualized. Great Vessels The aortic root is not well visualized but is probably normal size. The inferior vena cava was not well visualized. Effusions There is no pericardial effusion. : JOHN LACY > John Lacy
--- NOTE | 2017-12-16 18:31 | PDOC CONSULTATION ---
Consultation Consult Date: 12/15/17 Attending physician:: ALAN ANGLIN Consult reason:: Ventricular tachycardia History of Present Illness Admission Date/PCP: 12/15/17 19:04 ALAN ANGLIN MD Patient complains of: Patient came for replacement of PEG tube and also treatment of constipation. History of Present Illness: PARADISE ANTUNEZ is a 77 year old female from [facility] who presents to the ER via EMS today for PEG tube leaking gastric contents. Patient has been distended and they do not know when her last bowel movement was. Patient is nonverbal, demented, not able to give me any history. While in the process of treating her constipation and also changing her PEG tube placement, patient was noted to have 4 beat run of ventricular tachycardia. At least this was reported to me by the physician visitor use assistant in the ER. Patient cannot give any history. I told the PA that since I do not know the patient, could not assess her, and that it may be worthwhile to consider admitting her for observation if primary care physician agrees for that. It seems subsequently Dr. Anglin admitted the patient. When seen by me in the emergency room her CODE STATUS was full code. Past Medical History Cardiac Medical History: Reports: Hyperlipidema, Hypertension Pulmonary Medical History: Reports: Sleep Apnea Comment Only: Tuberculosis - UNKNOWN Neurological Medical History: Reports: Seizures Endocrine Medical History: Reports: Diabetes Mellitus Type 2 GI Medical History: Reports: Gastroesophageal Reflux Disease Musculoskeltal Medical History: Reports: Arthritis Psychiatric Medical History: Reports: Dementia, Depression Hematology: Reports: Anemia Past Surgical History Past Surgical History: Reports: Other - PEG tube placement Denies: Hysterectomy, Pacemaker Social History Information Source: [facility] Records Smoking Status: Unknown if Ever Smoked Hx Recreational Drug Use: No Hx Prescription Drug Abuse: No - Advance Directive Resuscitation Status: Full Code Family History Family History: None Parental Family History Reviewed: No Children Family History Reviewed: No Sibling(s) Family History Reviewed.: No - Family history could not be obtained. Medication/Allergy Home Medications: Acetaminophen [Acetaminophen ER] 1,300 mg PO Q8HP PRN 12/15/17 Furosemide [Lasix 40 mg Tablet] 40 mg PO BIDP PRN 12/15/17 Hyoscyamine Sulfate [Levsin] 5 ml PO TIDP PRN 12/15/17 Omeprazole 20 mg PO DAILY 12/15/17 Valproic Acid (As Sodium Salt) [Valproic Acid] 10 ml PO Q12 12/15/17 Allergies/Adverse Reactions: No Known Allergies Allergy (Verified 02/20/17 23:56) Review of Systems ROS unobtainable: Due to mental status Physical Exam Vital Signs: Temp Pulse Resp BP Pulse Ox 97.3 F 12 164/71 H 99 12/15/17 12:10 12/15/17 19:30 12/15/17 19:31 12/15/17 19:31 Exam: GENERAL: well-nourished and in no acute distress. Sleeping but not oriented to place time or person. Patient noted to have apnea most likely central apnea spells. HEAD: Atraumatic, normocephalic. EYES: Pupils equal round and reactive to light, extraocular movements intact, sclera anicteric, conjunctiva are normal. ENT: TMs normal, nares patent, oropharynx clear without exudates. Moist mucous membranes. No oral ulcerations or bleeding gums noted NECK: supple without lymphadenopathy or JVD. Trachea is central. No cervical or axillary lymphadenopathy noted. Carotids are 2+ LUNGS: Breath sounds bibasilar fine crackles at bases. No significant dullness noted. CHEST: Palpation of chest wall shows no significant chest wall tenderness. HEART: [place] [employer], No PSH, 2/6 JAVIER aortic area, 1/6 engle systolic murmur mitral area, rubs or gallops. ABDOMEN: Soft, no significant tenderness appreciated, normoactive bowel sounds. No guarding, no rebound. No rigidity noted . No masses appreciated. EXTREMITIES: Pedal pulses are 1-2+, no calf tenderness noted, Trace + pedal edema noted. No clubbing or cyanosis. NEUROLOGICAL: Patient is alert but is not able to participate in neurological exam because of patient's current mental status PSYCH: Patient cannot participate in a neurologic and psych exam because of the patient's current mental status SKIN: No significant ecchymosis, rash, ulcerations or signs of pruritus noted. MUSCULOSKELETAL EXAM: No significant joint swelling noted. Results EKG Comments: Not available for review. Telemetry strips reviewed. It is difficult to assess telemetry strips because of artifacts. Impressions: KUB X-Ray 12/15/17 13:11 IMPRESSION: No extravasation of contrast from the patient's gastrostomy tube or stomach. Gastroesophageal reflux with contrast in the thoracic esophagus Massive amount of stool in the rectum worrisome for fecal impaction Findings discussed with Nilda Brothers in the emergency room Assessment & Plan - Diagnosis (1) Hypokalemia Is this a current diagnosis for this admission?: Yes (2) Ventricular tachycardia (paroxysmal) Is this a current diagnosis for this admission?: Yes (3) Dementia Qualifiers: Alzheimer's disease onset: unspecified onset Dementia behavioral disturbance: without behavioral disturbance Is this a current diagnosis for this admission?: Yes (4) Sleep apnea syndrome Qualifiers: Sleep apnea type: unspecified type Qualified Code(s): G47.30 - Sleep apnea , unspecified Is this a current diagnosis for this admission?: Yes - Notes Notes: Telemetry strips were reviewed. It was felt that patient most likely was having artifacts but it is difficult to be sure. Feel that it is best to admit patient for observation, correct electrolyte and monitor her for further 24 hours. My feeling is that the strips were mostly artifact rather than true ventricular tachycardia. Have ordered a 2D echocardiogram for further risk assessment. Agree with correcting electrolyte abnormalities. Due to advanced dementia and bedbound status, do not feel patient will benefit from any invasive evaluation. Patient does have sleep apnea syndrome. Not a candidate for CPAP therapy. Will discuss with Dr. Anglin. - Time Time Spent: 30 to 50 Minutes - CODE STATUS : Currently chart showing full code. Surrogate decision-maker not available. More than 50% of the time spent coordinating care, discussing management plans with involved caregivers. Management plans discussed with involved personnels. Medical decision making was of moderate to high complexity. Medications reviewed and adjusted accordingly: Yes
--- NOTE | 2017-12-16 18:33 | PDOC PROGRESS REPORT ---
Subjective Progress Note for:: 12/16/17 Subjective:: No complaints by patient as patient is severely demented and is nonverbal. Note that CODE STATUS has changed to DO NOT RESUSCITATE. Reason For Visit: HYPOKALEMIA,HYPERNATREMIA,EPISODE OF V-TACH PER Physical Exam Vital Signs: Temp Pulse Resp BP Pulse Ox 98.5 F 74 12 141/64 H 98 12/16/17 16:00 12/16/17 16:00 12/16/17 16:00 12/16/17 16:00 12/16/17 16:00 Intake & Output 12/15/17 12/16/17 12/17/17 06:59 06:59 06:59 Intake Total 0 648 Balance 0 648 Weight 71.2 kg Exam: GENERAL: well-nourished and in no acute distress. Not arousable and not oriented to place time or person. HEAD: Atraumatic, normocephalic. EYES: Pupils equal round and reactive to light, extraocular movements intact, sclera anicteric, conjunctiva are normal. ENT: TMs normal, nares patent, oropharynx clear without exudates. Moist mucous membranes. No oral ulcerations or bleeding gums noted NECK: supple without lymphadenopathy or JVD. Trachea is central. No cervical or axillary lymphadenopathy noted. Carotids are 2+ LUNGS: Breath sounds bibasilar fine crackles at bases. No significant dullness noted. CHEST: Palpation of chest wall shows no significant chest wall tenderness. HEART: [place] [employer], No PSH, 2/6 JAVIER aortic area, 1/6 engle systolic murmur mitral area, rubs or gallops. ABDOMEN: Soft, no significant tenderness appreciated, normoactive bowel sounds. No guarding, no rebound. No rigidity noted . No masses appreciated. EXTREMITIES: Pedal pulses are 1-2+, no calf tenderness noted, Trace + pedal edema noted. No clubbing or cyanosis. NEUROLOGICAL: Patient is alert but is not able to participate in neurological exam because of patient's current mental status PSYCH: Patient cannot participate in a neurologic and psych exam because of the patient's current mental status SKIN: No significant ecchymosis, rash, ulcerations or signs of pruritus noted. MUSCULOSKELETAL EXAM: No significant joint swelling noted. Results Laboratory Results: 12/16/17 04:22 12/16/17 04:22 12/15/17 12/15/17 12/16/17 22:17 22:17 04:22 WBC 6.7 RBC 3.10 L Hgb 9.6 L Hct 29.0 L MCV 94 MCH 31.1 MCHC 33.2 RDW 14.8 H Plt Count 249 Seg Neutrophils % 64.2 Lymphocytes % 26.5 Monocytes % 7.9 Eosinophils % 1.2 Basophils % 0.2 Absolute Neutrophils 4.3 Absolute Lymphocytes 1.8 Absolute Monocytes 0.5 Absolute Eosinophils 0.1 Absolute Basophils 0.0 Sodium Potassium Chloride Carbon Dioxide Anion Gap BUN Creatinine Est GFR ( Amer) Est GFR (Non-Af Amer) Glucose Calcium Magnesium 2.7 H Total Bilirubin AST ALT Alkaline Phosphatase Total Protein Albumin TSH 2.46 Free T4 2.49 H 12/16/17 04:22 WBC RBC Hgb Hct MCV MCH MCHC RDW Plt Count Seg Neutrophils % Lymphocytes % Monocytes % Eosinophils % Basophils % Absolute Neutrophils Absolute Lymphocytes Absolute Monocytes Absolute Eosinophils Absolute Basophils Sodium 150.4 H Potassium 3.5 L Chloride 102 Carbon Dioxide 37 H Anion Gap 11 BUN 36 H Creatinine 0.61 Est GFR ( Amer) > 60 Est GFR (Non-Af Amer) > 60 Glucose 128 H Calcium 9.4 Magnesium Total Bilirubin 1.1 AST 30 ALT 31 Alkaline Phosphatase 90 Total Protein 7.2 Albumin 3.7 TSH Free T4 12/15/17 12/16/17 12/16/17 22:17 04:22 10:52 CK-MB (CK-2) 0.56 0.43 0.30 Troponin I 0.012 0.017 < 0.012 Impressions: KUB X-Ray 12/15/17 13:11 IMPRESSION: No extravasation of contrast from the patient's gastrostomy tube or stomach. Gastroesophageal reflux with contrast in the thoracic esophagus Massive amount of stool in the rectum worrisome for fecal impaction Findings discussed with Nilda Brothers in the emergency room Assessment & Plan - Diagnosis (1) Hypokalemia Is this a current diagnosis for this admission?: Yes (2) Ventricular tachycardia (paroxysmal) Is this a current diagnosis for this admission?: Yes (3) Dementia Qualifiers: Alzheimer's disease onset: unspecified onset Dementia behavioral disturbance: without behavioral disturbance Is this a current diagnosis for this admission?: Yes (4) Sleep apnea syndrome Qualifiers: Sleep apnea type: unspecified type Qualified Code(s): G47.30 - Sleep apnea , unspecified Is this a current diagnosis for this admission?: Yes - Notes Notes: Twelve-lead EKG shows no acute ST-T wave changes. 2D echocardiogram shows normal LVEF. No wall motion abnormalities noted. Electrolytes has been corrected. Do not feel in view of DNR status and also patient's poor baseline status, she would be a candidate for any invasive evaluation. From cardiac standpoint, no further evaluation recommended or planned. At this point will sign off. Please reconsult if needed. - Time Time Spent with patient: CODE STATUS : was discussed, patient remains DO NOT RESUSCITATE. Surrogate decision-maker unchanged. Multiple medical problems were addressed. More than 50% of the time spent coordinating care, discussing management plans with involved caregivers. Management plans discussed with involved personnels. Medical decision making was of moderate complexity, patient's has multiple comorbidities. Time with patient: Greater than 35 minutes Medications reviewed and adjusted accordingly: Yes
[2017-12-16] MEDS ORDERED: ACETAMINOPHEN 1300 MG PO PRN (21:22)
[2017-12-16] MEDS ORDERED: HYOSCYAMINE SULFATE PO PRN (21:22)
--- NOTE | 2017-12-16 21:22 | PDOC H&P ---
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 The PEG tube was replaced successfully KUB with Gastrografin was performed to confirm placement but also issue fecal impaction, she was given an enema successfully, she developed episode of nonsustained ventricular tachycardia potassium was 2.7 because of this episode of nonsustained ventricular tachycardia consultation was requested from cardiology Dr. Gandara he,suggested that patient should be admitted to the hospital for further evaluation. Patient is a DNR status, she was seen today by Dr. Gandara, cardiology, Dr. Gandara is of the opinion that the so-called V. tach was mostly artifact a 2D echo was done which was normal. Past Medical History Cardiac Medical History: Reports: Hyperlipidema, Hypertension Pulmonary Medical History: Reports: Sleep Apnea Comment Only: Tuberculosis - UNKNOWN Neurological Medical History: Reports: Seizures Endocrine Medical History: Reports: Diabetes Mellitus Type 2 GI Medical History: Reports: Gastroesophageal Reflux Disease Musculoskeltal Medical History: Reports: Arthritis Psychiatric Medical History: Reports: Dementia, Depression Hematology: Reports: Anemia Past Surgical History Past Surgical History: Reports: Other - PEG tube placement Denies: Hysterectomy, Pacemaker Social History Smoking Status: Unknown if Ever Smoked Hx Recreational Drug Use: No Hx Prescription Drug Abuse: No - Advance Directive Resuscitation Status: Full Code Family History Family History: None Parental Family History Reviewed: Yes Children Family History Reviewed: Yes Sibling(s) Family History Reviewed.: Yes Medication/Allergy Home Medications: Acetaminophen [Acetaminophen ER] 1,300 mg PO Q8HP PRN 12/15/17 Furosemide [Lasix 40 mg Tablet] 40 mg PO BIDP PRN 12/15/17 Hyoscyamine Sulfate [Levsin] 5 ml PO TIDP PRN 12/15/17 Omeprazole 20 mg PO DAILY 12/15/17 Valproic Acid (As Sodium Salt) [Valproic Acid] 10 ml PO Q12 12/15/17 Allergies/Adverse Reactions: No Known Allergies Allergy (Verified 02/20/17 23:56) Review of Systems ROS unobtainable: Other - Non-verbal Physical Exam Vital Signs: Temp Pulse Resp BP Pulse Ox 98.5 F 74 12 141/64 H 98 12/16/17 16:00 12/16/17 16:00 12/16/17 16:00 12/16/17 16:00 12/16/17 16:00 Intake & Output 12/15/17 12/16/17 12/17/17 06:59 06:59 06:59 Intake Total 0 648 Balance 0 648 Weight 71.2 kg General appearance: PRESENT: no acute distress Eye exam: PRESENT: PERRLA Respiratory exam: PRESENT: clear to auscultation brittni Cardiovascular exam: PRESENT: +S1, +S2 GI/Abdominal exam: PRESENT: soft - PEG tube Neurological exam: PRESENT: alert Results Laboratory Results: 12/16/17 04:22 12/16/17 04:22 12/15/17 12/15/17 12/16/17 22:17 22:17 04:22 WBC 6.7 RBC 3.10 L Hgb 9.6 L Hct 29.0 L MCV 94 MCH 31.1 MCHC 33.2 RDW 14.8 H Plt Count 249 Seg Neutrophils % 64.2 Lymphocytes % 26.5 Monocytes % 7.9 Eosinophils % 1.2 Basophils % 0.2 Absolute Neutrophils 4.3 Absolute Lymphocytes 1.8 Absolute Monocytes 0.5 Absolute Eosinophils 0.1 Absolute Basophils 0.0 Sodium Potassium Chloride Carbon Dioxide Anion Gap BUN Creatinine Est GFR ( Amer) Est GFR (Non-Af Amer) Glucose Calcium Magnesium 2.7 H Total Bilirubin AST ALT Alkaline Phosphatase Total Protein Albumin TSH 2.46 Free T4 2.49 H 12/16/17 04:22 WBC RBC Hgb Hct MCV MCH MCHC RDW Plt Count Seg Neutrophils % Lymphocytes % Monocytes % Eosinophils % Basophils % Absolute Neutrophils Absolute Lymphocytes Absolute Monocytes Absolute Eosinophils Absolute Basophils Sodium 150.4 H Potassium 3.5 L Chloride 102 Carbon Dioxide 37 H Anion Gap 11 BUN 36 H Creatinine 0.61 Est GFR ( Amer) > 60 Est GFR (Non-Af Amer) > 60 Glucose 128 H Calcium 9.4 Magnesium Total Bilirubin 1.1 AST 30 ALT 31 Alkaline Phosphatase 90 Total Protein 7.2 Albumin 3.7 TSH Free T4 12/15/17 12/16/17 12/16/17 22:17 04:22 10:52 CK-MB (CK-2) 0.56 0.43 0.30 Troponin I 0.012 0.017 < 0.012 Impressions: KUB X-Ray 12/15/17 13:11 IMPRESSION: No extravasation of contrast from the patient's gastrostomy tube or stomach. Gastroesophageal reflux with contrast in the thoracic esophagus Massive amount of stool in the rectum worrisome for fecal impaction Findings discussed with Nilda Brothers in the emergency room Assessment & Plan - Diagnosis (1) Nonsustained paroxysmal ventricular tachycardia Is this a current diagnosis for this admission?: Yes (2) Dementia Qualifiers: Dementia type: Alzheimer's disease Alzheimer's disease onset: unspecified onset Dementia behavioral disturbance: without behavioral disturbance Qualified Code(s): G30.9 - Alzheimer's disease, unspecified; F02.80 - Dementia in other diseases classified elsewhere without behavioral disturbance; F02.80 - Dementia in other diseases classified elsewhere without behavioral disturbance; F02.80 - Dementia in other diseases classified elsewhere without behavioral disturbance Is this a current diagnosis for this admission?: Yes (3) Hypokalemia Is this a current diagnosis for this admission?: Yes (4) Sleep apnea syndrome Qualifiers: Sleep apnea type: unspecified type Qualified Code(s): G47.30 - Sleep apnea , unspecified Is this a current diagnosis for this admission?: Yes
--- NOTE | 2017-12-16 21:28 | PDOC TRANSFER SUMMARY ---
General - Admit/Disc Date/PCP Admission Date/Primary Care Provider: 12/15/17 19:04 ALAN ANGLIN MD Discharge Date: 12/16/17 - Discharge Diagnosis (1) Nonsustained paroxysmal ventricular tachycardia Is this a current diagnosis for this admission?: Yes (2) Dementia Is this a current diagnosis for this admission?: Yes (3) Hypokalemia Is this a current diagnosis for this admission?: Yes (4) Hypernatremia Is this a current diagnosis for this admission?: Yes - Additional Information Resuscitation Status: Full Code Discharge Activity: Activity As Tolerated Home Medications: Acetaminophen [Acetaminophen ER] 1,300 mg PO Q8HP PRN 12/15/17 Hyoscyamine Sulfate [Levsin] 5 ml PO TIDP PRN 12/15/17 Omeprazole 20 mg PO DAILY 12/15/17 Valproic Acid (As Sodium Salt) [Valproic Acid] 10 ml PO Q12 12/15/17 History of Present Illness Admission Date/PCP: 12/15/17 19:04 ALAN ANGLIN MD History of Present Illness: Patient is a 77-year-old female with advanced dementia, nonverbal a tube feeder she was transferred from the long term to the emergency room for replacement of PEG tube that was leaking gastric contents. The PEG tube was replaced successfully KUB with Gastrografin was performed to confirm placement but also issue fecal impaction, she was given an enema successfully, she developed episode of nonsustained ventricular tachycardia potassium was 2.7 because of this episode of nonsustained ventricular tachycardia consultation was requested from cardiology Dr. Gandara he,suggested that patient should be admitted to the hospital for further evaluation. Patient is a DNR status, she was seen today by Dr. Gandara, cardiology, Dr. Gandara is of the opinion that the so-called V. tach was mostly artifact a 2D echo was done which was normal. Hospital Course Hospital Course: Patient was admitted for the management of episode of nonsustained V. tach, she also was found to have hypokalemia and hypernatremia most likely due to furosemide diuretic. She was seen by Dr. Gandara precision dyer 2D echo was done which was normal, it was felt that the V. tach were mostly artifacts, the potassium was replaced she was taken off furosemide Physical Exam Vital Signs: Temp Pulse Resp BP Pulse Ox 97.4 F 62 16 132/50 H 97 12/16/17 20:00 12/16/17 20:00 12/16/17 20:00 12/16/17 20:00 12/16/17 20:00 Intake & Output 12/15/17 12/16/17 12/17/17 06:59 06:59 06:59 Intake Total 0 648 Balance 0 648 Weight 71.2 kg General appearance: PRESENT: no acute distress Eye exam: PRESENT: PERRLA Respiratory exam: PRESENT: clear to auscultation brittni Cardiovascular exam: PRESENT: +S1, +S2 GI/Abdominal exam: PRESENT: soft Neurological exam: PRESENT: alert Results Laboratory Results: 12/16/17 04:22 12/16/17 04:22 12/15/17 12/15/17 12/16/17 22:17 22:17 04:22 WBC 6.7 RBC 3.10 L Hgb 9.6 L Hct 29.0 L MCV 94 MCH 31.1 MCHC 33.2 RDW 14.8 H Plt Count 249 Seg Neutrophils % 64.2 Lymphocytes % 26.5 Monocytes % 7.9 Eosinophils % 1.2 Basophils % 0.2 Absolute Neutrophils 4.3 Absolute Lymphocytes 1.8 Absolute Monocytes 0.5 Absolute Eosinophils 0.1 Absolute Basophils 0.0 Sodium Potassium Chloride Carbon Dioxide Anion Gap BUN Creatinine Est GFR ( Amer) Est GFR (Non-Af Amer) Glucose Calcium Magnesium 2.7 H Total Bilirubin AST ALT Alkaline Phosphatase Total Protein Albumin TSH 2.46 Free T4 2.49 H 12/16/17 04:22 WBC RBC Hgb Hct MCV MCH MCHC RDW Plt Count Seg Neutrophils % Lymphocytes % Monocytes % Eosinophils % Basophils % Absolute Neutrophils Absolute Lymphocytes Absolute Monocytes Absolute Eosinophils Absolute Basophils Sodium 150.4 H Potassium 3.5 L Chloride 102 Carbon Dioxide 37 H Anion Gap 11 BUN 36 H Creatinine 0.61 Est GFR ( Amer) > 60 Est GFR (Non-Af Amer) > 60 Glucose 128 H Calcium 9.4 Magnesium Total Bilirubin 1.1 AST 30 ALT 31 Alkaline Phosphatase 90 Total Protein 7.2 Albumin 3.7 TSH Free T4 12/15/17 12/16/17 12/16/17 22:17 04:22 10:52 CK-MB (CK-2) 0.56 0.43 0.30 Troponin I 0.012 0.017 < 0.012 Impressions: KUB X-Ray 12/15/17 13:11 IMPRESSION: No extravasation of contrast from the patient's gastrostomy tube or stomach. Gastroesophageal reflux with contrast in the thoracic esophagus Massive amount of stool in the rectum worrisome for fecal impaction Findings discussed with Nilda Brothers in the emergency room Qualifiers - * PATEINT BEING DISCHARGED WITH ANY OF THE FOLLOWING DIAGNOSIS?: No
[2017-12-16] MEDS ORDERED: ACETAMINOPHEN 325 MG TABLET PO PRN (21:31)
[2017-12-16] MEDS ORDERED: VALPROIC ACID PO SCH (22:00)
[2017-12-16] MEDS: VALPROATE SODIUM SYRUP 250 MG/5 ML UDCUP PO SCH (23:41)
[2017-12-16] MEDS: DEXTROSE 5%-WATER 1000 ML 1,000 ML IV PRN (23:53)
[2017-12-17] MEDS ORDERED: LANSOPRAZOLE 30 MG TAB.RAP.DR PO SCH (06:00)
[2017-12-17] MEDS: VALPROATE SODIUM SYRUP 250 MG/5 ML UDCUP PO SCH (11:20)
[2017-12-17] MEDS: ENOXAPARIN SODIUM INJ 40 MG/0.4 ML DISP.SYRIN SUBCUT SCH (11:20)
[2017-12-17 12:15] VITALS: BP 127/60
== END 2017-12-17 14:30 ==
LOC: ER 11:52 → EH 19:04 → 4S 21:28 → 4N 12-16 11:45
PROVIDERS: ADMIT Internal Medicine; ATTEND Internal Medicine
PROC: 0D20X0Z Change Drainage Device in Upper Intestinal Tract, External Approach (ICD-10-PCS; principal; 2017-12-15)
DX: I47.2 Ventricular tachycardia (principal); G30.9 Alzheimer's disease, unspecified; F02.80 Dementia in other diseases classified elsewhere, unspecified severity, without behavioral disturbance, psychotic disturbance, mood disturbance, and anxiety; E87.6 Hypokalemia; E87.0 Hyperosmolality and hypernatremia; K56.41 Fecal impaction; K94.29 Other complications of gastrostomy; Y83.3 Surgical operation with formation of external stoma as the cause of abnormal reaction of the patient, or of later complication, without mention of misadventure at the time of the procedure; I10 Essential (primary) hypertension; K21.9 Gastro-esophageal reflux disease without esophagitis; G47.30 Sleep apnea, unspecified; Z66 Do not resuscitate; Z74.01 Bed confinement status; Z79.899 Other long term (current) drug therapy; Z95.0 Presence of cardiac pacemaker
CPT/HCPCS: 99285; 36415 ×2; 84439; 82553 ×2; 82962; 83735; 84443; 85025 ×2; 80053 ×2; 84484 ×2; 80164; 93306; 74018; 93005; 93010; 49450; A9270 ×5; J1650 ×2; J7060 ×2; G0378; J3490

== ENCOUNTER 2018-03-17 20:24 | Emergency (ER) | payer MEDICARE, MEDICAID ==
[2018-03-17] MEDS ORDERED: METOCLOPRAMIDE HCL INJ/PF 10 MG/2 ML SDV IV ONE (20:35)
[2018-03-17] MEDS ORDERED: NORMAL SALINE 1000 ML 500 ML IV ONE (20:35)
--- NOTE | 2018-03-17 21:39 | ER Document Report ---
ED General - General Chief Complaint: Abdominal Problem Stated Complaint: VOMITING Time Seen by Provider: 03/17/18 20:33 Cannot obtain history due to: Dementia Notes: Patient is a 77-year-old female who presents from a nursing facility with concerns of possible aspiration. Patient apparently vomited prior to arrival after receiving a tube feed. Since that time she has been coughing and apparently wheezing more per the staff. The patient herself is nonverbal, unable to provide any meaningful history. TRAVEL OUTSIDE OF THE [place] IN LAST 30 DAYS: No - Related Data Allergies/Adverse Reactions: No Known Allergies Allergy (Verified 02/20/17 23:56) Past Medical History - General Information source: Emergency Med Personnel Cannot obtain history due to: Dementia - Social History Smoking Status: Unknown if Ever Smoked Frequency of alcohol use: None Drug Abuse: None Lives with: Jail Family History: None - Past Medical History Cardiac Medical History: Reports: Hx Hypercholesterolemia, Hx Hypertension Pulmonary Medical History: Reports: Hx Sleep Apnea Comment Only: Hx Tuberculosis - UNKNOWN Neurological Medical History: Reports: Hx Seizures Endocrine Medical History: Reports: Hx Diabetes Mellitus Type 2 Renal/ Medical History: Denies: Hx Peritoneal Dialysis GI Medical History: Reports: Hx Gastroesophageal Reflux Disease Musculoskeltal Medical History: Reports Hx Arthritis Psychiatric Medical History: Reports: Hx Dementia, Hx Depression, Hx Schizophrenia Past Surgical History: Reports: Hx Abdominal Surgery - Peg tube, Hx Cardiac Surgery - Pacemaker, Other - PEG tube placement. Denies: Hx Hysterectomy, Hx Pacemaker - Immunizations Hx Diphtheria, Pertussis, Tetanus Vaccination: Yes Hx Pneumococcal Vaccination: 02/20/09 Review of Systems - Review of Systems -: Yes ROS unobtainable due to patient's medical condition Physical Exam - Vital signs Vitals: Temp Pulse Resp BP Pulse Ox 99.2 F 94 22 H 156/100 H 96 03/17/18 20:33 03/17/18 20:33 03/17/18 20:33 03/17/18 20:33 03/17/18 20:33 Interpretation: Hypertensive, Tachypneic Notes: PHYSICAL EXAMINATION: GENERAL: Appears chronically ill but in no acute distress. HEAD: Atraumatic, normocephalic. EYES: Pupils equal round and reactive to light, sclera anicteric, conjunctiva are normal. ENT: nares patent, oropharynx clear without exudates. Moderately dry mucous membranes. NECK: supple without lymphadenopathy LUNGS: Scattered rales of the by lateral bases. No respiratory distress or retractions HEART: Regular rate and rhythm without murmurs ABDOMEN: Soft, nontender, normoactive bowel sounds. No guarding, no rebound. No masses appreciated. G-tube site without erythema or induration. EXTREMITIES: 1+ pitting edema that is equal and symmetric in the bilateral lower 70s. Contracted in all 4 extremity's. No cyanosis. NEUROLOGICAL: Nonverbal, no purposeful movements due to contractions. PSYCH: Nonverbal SKIN: Warm, Dry, normal turgor, no rashes or lesions noted. Course - Re-evaluation Re-evalutation: 03/17/18 21:38 Patient presents with concerns of vomiting after being provided a tube feed with associated possible aspiration. Patient is chronically ill in appearance but in no overt distress. Vitals within acceptable limits at time of arrival although initially she was noted to be tachycardic at 120. Will proceed with chest x-ray, labs, and reassess the patient. 03/18/18 00:02 Two-view abdomen shows unchanged sigmoid colon dilation. Chest x-ray clear without evidence of aspiration or pneumonitis. Patient has remained between 98 and 100% on room air without any tachypnea or further episodes of vomiting. Her labs are notable only for hypokalemia and 40 mEq of potassium has been provided here in the emergency department prior to discharge. At this time point I do not clinically suspect any life-threatening pathology as the etiology of the patient's presentation and believe she is safe to return to the nursing facility. - Vital Signs Vital signs: Temp Pulse Resp BP Pulse Ox 99.2 F 94 22 H 156/100 H 100 03/17/18 20:33 03/17/18 20:33 03/17/18 20:33 03/17/18 20:33 03/17/18 21:51 - Laboratory Result Diagrams: 03/17/18 23:28 03/17/18 23:28 Laboratory results interpreted by me: 03/17/18 03/17/18 03/17/18 21:25 23:28 23:28 WBC 12.7 H RBC 3.62 L Hgb 10.5 L Hct 32.1 L RDW 16.6 H Seg Neutrophils % 86.2 H Lymphocytes % 9.0 L Absolute Neutrophils 10.9 H Sodium 146.0 H Potassium 2.8 L* Chloride 93 L Carbon Dioxide 39 H BUN 35 H Glucose 129 H Urine Protein 100 H Urine Urobilinogen 4.0 H Urine Ascorbic Acid 40 H - Diagnostic Test Radiology reviewed: Image reviewed, Reports reviewed Radiology results interpreted by me: 03/18/18 00:04 Chest x-ray: No acute infiltrate or evidence of a pneumonitis Discharge - Discharge Clinical Impression: Coughing, Hypokalemia Vomiting Qualifiers: Vomiting type: unspecified Vomiting Intractability: non-intractable Nausea presence: unspecified Qualified Code(s): R11.10 - Vomiting, unspecified Dementia Qualifiers: Dementia type: unspecified type Dementia behavioral disturbance: without behavioral disturbance Qualified Code(s): F03.90 - Unspecified dementia without behavioral disturbance Condition: Good Disposition: HOME, SELF-CARE Additional Instructions: The patient's potassium is low at 2.8 today. Her potassium has been replaced with 40 mEq of oral potassium here in the emergency department. She should have a recheck of her potassium level within the next 48 hours. Her chest x- ray and abdominal x-ray are normal and do not show any dangerous cause of her episode of vomiting and did not show any evidence of an aspiration event. Her oxygen levels have remained between 90 and 100% during her time in the emergency department. Referrals: ALAN ANGLIN MD [Primary Care Provider] - Follow up as needed
[2018-03-17 22:12] LABS: APPEARANCE,URINE SLIGHTLY-CLOUDY; BILIRUBIN,URINE NEGATIVE (NEGATIVE); COLOR,URINE YELLOW; GLUCOSE, URINE NEGATIVE (NEGATIVE); KETONES,URINE NEGATIVE (NEGATIVE); LEUKOCYTE ESTERASE,URINE NEGATIVE (NEGATIVE); NITRITE,URINE NEGATIVE (NEGATIVE); PROTEIN,URINE 100 mg/dL (NEGATIVE); URINE SPECIFIC GRAVITY 1.023
--- NOTE | 2018-03-17 22:28 | RADIOLOGY REPORT (SQ) ---
EXAM DESCRIPTION: CHEST SINGLE VIEW COMPLETED DATE/TIME: 03/17/2018 10:11 pm REASON FOR STUDY: cough, sob COMPARISON: 02/25/2017 EXAM PARAMETERS: NUMBER OF VIEWS: One view. TECHNIQUE: Single frontal radiographic view of the chest acquired. RADIATION DOSE: NA LIMITATIONS: None. FINDINGS: LUNGS AND PLEURA: No acute opacities, masses or pneumothorax. No pleural effusion. MEDIASTINUM AND HILAR STRUCTURES: Stable. HEART AND VASCULAR STRUCTURES: Heart normal in size. Normal vasculature. BONES: No acute findings. HARDWARE: None in the chest. OTHER: No other significant finding. IMPRESSION: NO ACUTE RADIOGRAPHIC FINDING IN THE CHEST. TECHNICAL DOCUMENTATION: JOB ID: [id number] [place]-72 2010 [employer]- All Rights Reserved Reading location - IP/workstation name: [email or web address]
--- NOTE | 2018-03-17 22:31 | RADIOLOGY REPORT (SQ) ---
EXAM DESCRIPTION: ABDOMEN 2 VIEWS COMPLETED DATE/TIME: 03/17/2018 10:11 pm REASON FOR STUDY: eval obstruction COMPARISON: 12/15/2017 NUMBER OF VIEWS: Two views. TECHNIQUE: Supine and erect/decubitus radiographic images of the abdomen acquired. LIMITATIONS: None. FINDINGS: FREE AIR: None. No abnormal gas collections. LUNG BASES: Clear. BOWEL GAS PATTERN: Dilated sigmoid colon measuring up to at 18 cm, this is similar to the November ex amination. No free air or evidence for small bowel air-fluid levels. CALCIFICATIONS: Similar calcifications. SOFT TISSUES: No gross mass or suggestion of organomegaly. HARDWARE: G-tube. BONES: No acute fracture. OTHER: No other significant finding. IMPRESSION: Dilated sigmoid colon measuring up to at 18 cm, this is similar to the November examinat ion. No free air or evidence for small bowel air-fluid levels. TECHNICAL DOCUMENTATION: JOB ID: [id number] [place]-72 2010 [employer]- All Rights Reserved Reading location - IP/workstation name: [email or web address]
[2018-03-17 23:38] LABS: ABSOLUTE EOSINOPHILS # (AUTO) 0.1 10^3/uL (0.0-0.6); ABSOLUTE LYMPHOCYTES (AUTO) 1.1 10^3/uL (0.5-4.7); ABSOLUTE MONOCYTES (AUTO) 0.5 10^3/uL (0.1-1.4); ABSOLUTE NEUT (AUTO) 10.9 10^3/uL (1.7-8.2); BASOPHILS % (AUTO) 0.3 % (0-2); EOSINOPHILS % (AUTO) 0.4 % (0-6); HEMATOCRIT 32.1 % (36.0-47.0); HEMOGLOBIN 10.5 g/dL (12.0-15.5); MEAN CORPUSCULAR HEMOGLOBIN 29.1 pg (27.0-33.4); MEAN CORPUSCULAR HGB CONC 32.8 g/dL (32.0-36.0); MEAN CORPUSCULAR VOLUME 89 fl (80-97); MONOCYTES % (AUTO) 4.1 % (3-13); PLATELET COUNT 205 10^3/uL (150-450); RED BLOOD COUNT 3.62 10^6/uL (3.72-5.28); RED CELL DISTRIBUTION WIDTH 16.6 % (11.5-14.0); SEGMENTED NEUTROPHILS % (AUTO) 86.2 % (42-78); TOTAL CELLS COUNTED % (AUTO) 100 %; WHITE BLOOD COUNT 12.7 10^3/uL (4.0-10.5)
[2018-03-17 23:51] LABS: ALANINE AMINOTRANSFERASE 26 U/L (9-52); ALBUMIN 4.2 g/dL (3.5-5.0); ALKALINE PHOSPHATASE 79 U/L (38-126); ANION GAP 14 (5-19); ASPARTATE AMINO TRANSFERASE 23 U/L (14-36); BILIRUBIN,DIRECT 0.4 mg/dL (0.0-0.4); BILIRUBIN,TOTAL 0.5 mg/dL (0.2-1.3); BLOOD UREA NITROGEN 35 mg/dL (7-20); CALCIUM 9.8 mg/dL (8.4-10.2); CARBON DIOXIDE 39 mmol/L (22-30); CHLORIDE 93 mmol/L (98-107); GLUCOSE 129 mg/dL (75-110)
[2018-03-17 23:58] LABS: POTASSIUM 2.8 mmol/L (3.6-5.0)
[2018-03-17] MEDS ORDERED: POTASSIUM CHLORIDE 20 MEQ/15 ML UDCUP PO ONE (23:59)
[2018-03-18 01:02] VITALS: BP 164/87
== END 2018-03-18 01:29 | disposition home or self-care (01) ==
LOC: ER 20:24
DX: R05 Cough (principal); R11.10 Vomiting, unspecified; F03.90 Unspecified dementia, unspecified severity, without behavioral disturbance, psychotic disturbance, mood disturbance, and anxiety; E87.6 Hypokalemia; E78.00 Pure hypercholesterolemia, unspecified; I10 Essential (primary) hypertension; E11.9 Type 2 diabetes mellitus without complications; Z93.1 Gastrostomy status
CPT/HCPCS: 99284; 96361; 96374; 36415; 85025; 80053; 81001; 74019; 71045; J2765; A9270; J7030

== ENCOUNTER 2018-05-16 19:29 | Emergency (ER) | payer MEDICARE, MEDICAID ==
[2018-05-16 20:42] LABS: ABSOLUTE EOSINOPHILS # (AUTO) 0.2 10^3/uL (0.0-0.6); ABSOLUTE LYMPHOCYTES (AUTO) 2.9 10^3/uL (0.5-4.7); ABSOLUTE MONOCYTES (AUTO) 0.6 10^3/uL (0.1-1.4); ABSOLUTE NEUT (AUTO) 3.1 10^3/uL (1.7-8.2); BASOPHILS % (AUTO) 0.6 % (0-2); EOSINOPHILS % (AUTO) 3.3 % (0-6); HEMATOCRIT 31.9 % (36.0-47.0); HEMOGLOBIN 10.7 g/dL (12.0-15.5); LYMPHOCYTES % (AUTO) 42.1 % (13-45); MEAN CORPUSCULAR HEMOGLOBIN 29.5 pg (27.0-33.4); MEAN CORPUSCULAR HGB CONC 33.4 g/dL (32.0-36.0); MEAN CORPUSCULAR VOLUME 88 fl (80-97); MONOCYTES % (AUTO) 8.4 % (3-13); PLATELET COUNT 252 10^3/uL (150-450); RED BLOOD COUNT 3.62 10^6/uL (3.72-5.28); RED CELL DISTRIBUTION WIDTH 16.6 % (11.5-14.0); SEGMENTED NEUTROPHILS % (AUTO) 45.6 % (42-78); TOTAL CELLS COUNTED % (AUTO) 100 %; WHITE BLOOD COUNT 6.9 10^3/uL (4.0-10.5)
[2018-05-16 20:56] LABS: ALANINE AMINOTRANSFERASE 22 U/L (9-52); ALBUMIN 4.3 g/dL (3.5-5.0); ALKALINE PHOSPHATASE 85 U/L (38-126); ASPARTATE AMINO TRANSFERASE 24 U/L (14-36); BILIRUBIN,DIRECT 0.4 mg/dL (0.0-0.4); BILIRUBIN,TOTAL 0.6 mg/dL (0.2-1.3); BLOOD UREA NITROGEN 41 mg/dL (7-20); CALCIUM 10.1 mg/dL (8.4-10.2); CHLORIDE 90 mmol/L (98-107); GLUCOSE 97 mg/dL (75-110); SODIUM 144.7 mmol/L (137-145); TOTAL PROTEIN 8.8 g/dL (6.3-8.2)
[2018-05-16 21:08] LABS: ANION GAP 14 (5-19)
[2018-05-16 21:12] LABS: CARBON DIOXIDE 41 mmol/L (22-30); POTASSIUM 2.8 mmol/L (3.6-5.0)
--- NOTE | 2018-05-16 21:14 | RADIOLOGY REPORT (SQ) ---
EXAM DESCRIPTION: CT ABD/PELVIS NO ORAL OR IV COMPLETED DATE/TIME: 05/16/2018 8:47 pm REASON FOR STUDY: abdominal distension COMPARISON: 10/03/2011 TECHNIQUE: CT scan of the abdomen and pelvis performed without intravenous or oral contrast. Images reviewed with lung, soft tissue, and bone windows. Reconstructed coronal and sagittal MPR images revi ewed. All images stored on PACS. All CT scanners at this facility use dose modulation, iterative reconstruction, and/or weight based d osing when appropriate to reduce radiation dose to as low as reasonably achievable (ALARA). [facility]: Dose Right [facility]: CareDose [facility]: Dose Right [facility]: Teradose 4D [facility]: [employer] RADIATION DOSE: CT Rad equipment meets quality standard of care and radiation dose reduction techniq ues were employed. CTDIvol: 17.3 mGy. DLP: 948 mGy-cm.mGy. LIMITATIONS: None. FINDINGS: LOWER CHEST: Subsegmental atelectasis-airspace disease in the right lower lobe. No pleura l effusion. NON-CONTRASTED LIVER, SPLEEN, ADRENALS: Evaluation limited by lack of IV contrast. No identified sign ificant masses. PANCREAS: No masses. No peripancreatic inflammatory changes. GALLBLADDER: No identified stones by CT criteria. No inflammatory changes to suggest cholecystitis. RIGHT KIDNEY AND URETER: No suspicious masses. Assessment limited by lack of IV contrast. No signif icant calcifications. No hydronephrosis or hydroureter. LEFT KIDNEY AND URETER: No suspicious masses. Assessment limited by lack of IV contrast. No signifi cant calcifications. No hydronephrosis or hydroureter. AORTA AND RETROPERITONEUM: No aneurysm. No retroperitoneal masses or adenopathy. BOWEL AND PERITONEAL CAVITY: Large amount of stool in the rectum. Moderate gas distention of the sig moid colon without focal wall thickening or acute inflammatory changes. No free fluid. APPENDIX: Normal. PELVIS, BLADDER, AND ABDOMINAL WALL:No abnormal masses. No free fluid. Bladder normal. BONES: No acute findings. Chronic degenerative changes in the hips in spine OTHER: No other significant finding. IMPRESSION: Large amount of stool in the rectum. Moderate gas distention of the sigmoid colon witho ut focal wall thickening or acute inflammatory changes. No free fluid. Subsegmental atelectasis-airspace disease in the right lower lobe. COMMENT: Quality ID # [id number]: Final reports with documentation of one or more dose reduction techniques (e.g., Automated exposure control, adjustment of the mA and/or kV according to patient size, use of iterative reconstruction technique) TECHNICAL DOCUMENTATION: JOB ID: [id number] [place]-72 2010 [email or web address]- All Rights Reserved Reading location - IP/workstation name: [email or web address]
--- NOTE | 2018-05-16 21:18 | RADIOLOGY REPORT (SQ) ---
EXAM DESCRIPTION: CHEST SINGLE VIEW COMPLETED DATE/TIME: 05/16/2018 8:55 pm REASON FOR STUDY: chest pain COMPARISON: 03/17/2018 EXAM PARAMETERS: NUMBER OF VIEWS: One view. TECHNIQUE: Single frontal radiographic view of the chest acquired. RADIATION DOSE: NA LIMITATIONS: None. FINDINGS: LUNGS AND PLEURA: Right basilar subsegmental atelectasis -airspace disease. Left lung silva ears clear. MEDIASTINUM AND HILAR STRUCTURES: Stable. HEART AND VASCULAR STRUCTURES: Stable. BONES: No acute findings. HARDWARE: None in the chest. OTHER: No other significant finding. IMPRESSION: Right basilar subsegmental atelectasis -airspace disease. TECHNICAL DOCUMENTATION: JOB ID: [id number] [place]-72 2010 [employer]- All Rights Reserved Reading location - IP/workstation name: [email or web address]
--- NOTE | 2018-05-16 21:24 | ER Document Report ---
ED General - General Stated Complaint: POSSIBLE ABNORMAL XRAY Time Seen by Provider: 05/16/18 19:45 Mode of Arrival: Medic Information source: Emergency Med Personnel Notes: This is a 77-year-old debilitated woman who is brought into the emergency room because of abdominal distention. She [facility] at [facility] (outpatient) which was reported as abnormal. Patient does have a history of CVA, nonambulatory and contracted, history of aspiration with G-tube. She is nonverbal. There is no reported history of fever, chills, vomiting or aspiration. TRAVEL OUTSIDE OF THE [place] IN LAST 30 DAYS: No - HPI Onset: Just prior to arrival Onset/Duration: Gradual Quality of pain: No pain Severity: None Pain Level: Denies Associated symptoms: denies: Chest pain, Fever, Shortness of breath Exacerbated by: Denies Relieved by: Denies Similar symptoms previously: No Recently seen / treated by doctor: Yes - Related Data Allergies/Adverse Reactions: No Known Allergies Allergy (Verified 02/20/17 23:56) Past Medical History - General Information source: Transfer Record - Social History Smoking Status: Never Smoker Cigarette use (# per day): No Chew tobacco use (# tins/day): No Frequency of alcohol use: None Drug Abuse: None Lives with: Custodial Family History: None Patient has suicidal ideation: No Patient has homicidal ideation: No - Past Medical History Cardiac Medical History: Reports: Hx Hypercholesterolemia, Hx Hypertension Pulmonary Medical History: Reports: Hx Sleep Apnea Comment Only: Hx Tuberculosis - UNKNOWN Neurological Medical History: Reports: Hx Seizures Endocrine Medical History: Reports: Hx Diabetes Mellitus Type 2 Renal/ Medical History: Denies: Hx Peritoneal Dialysis GI Medical History: Reports: Hx Gastroesophageal Reflux Disease Musculoskeletal Medical History: Reports Hx Arthritis Psychiatric Medical History: Reports: Hx Dementia, Hx Depression, Hx Schizophrenia Past Surgical History: Reports: Hx Abdominal Surgery - Peg tube, Hx Cardiac Surgery - Pacemaker, Other - PEG tube placement. Denies: Hx Hysterectomy, Hx Pacemaker - Immunizations Hx Diphtheria, Pertussis, Tetanus Vaccination: Yes Hx Pneumococcal Vaccination: 02/20/09 Review of Systems - Review of Systems Constitutional: denies: Chills, Fever EENT: No symptoms reported Cardiovascular: No symptoms reported Respiratory: No symptoms reported Gastrointestinal: See HPI, Abdomen distended Genitourinary: No symptoms reported Female Genitourinary: No symptoms reported Musculoskeletal: No symptoms reported Skin: No symptoms reported Hematologic/Lymphatic: No symptoms reported Neurological/Psychological: No symptoms reported Physical Exam - Vital signs Vitals: Pulse Resp BP Pulse Ox 78 20 177/80 H 100 05/16/18 19:48 05/16/18 19:48 05/16/18 19:48 05/16/18 19:48 Notes: This is a chronically ill, debilitated 77-year-old female lying in the stretcher. She is nonverbal. HEAD: Atraumatic, normocephalic. EYES: Pupils equal round and reactive to light, extraocular movements intact, sclera anicteric, conjunctiva are normal. ENT: TMs normal, nares patent, oropharynx clear without exudates. Moist mucous membranes. NECK: Normal range of motion, supple without obvious mass or JVD. LUNGS: Breath sounds clear to auscultation bilaterally and equal. No wheezes rales or rhonchi. HEART: Regular rate and rhythm without murmurs, rubs or gallops. ABDOMEN: Patient's G-tube is in place. Abdomen is tense and distended. No obvious tenderness is elicited (however patient is nonverbal). EXTREMITIES: Normal range of motion, no pitting or edema. No clubbing or cyanosis. NEUROLOGICAL: Cranial nerves II through XII grossly intact. Normal speech, moving all extremities. PSYCH: Normal mood, normal affect. SKIN: Warm, Dry, normal turgor, no rashes or lesions noted. Side ultrasound: No free fluid in the abdomen. Course - Vital Signs Vital signs: Temp Pulse Resp BP Pulse Ox 78 20 177/80 H 100 05/16/18 19:48 05/16/18 19:48 05/16/18 19:48 05/16/18 19:48 - Laboratory Result Diagrams: 05/16/18 20:20 05/16/18 20:20 Laboratory results interpreted by me: 05/16/18 05/16/18 20:20 20:20 RBC 3.62 L Hgb 10.7 L Hct 31.9 L RDW 16.6 H Potassium 2.8 L* Chloride 90 L Carbon Dioxide 41 H* BUN 41 H Total Protein 8.8 H - Diagnostic Test Radiology reviewed: Image reviewed, Reports reviewed - CT of the abdomen shows moderate stool in the rectum. There does appear to be much gas in the sigmoid colon. Stat x-ray shows some left lower said mental atelectasis Procedures - Additional Procedures Rectal disimpaction Time performed: 21:27 Additional Procedures: Other Discharge - Discharge Clinical Impression: Abdominal distension, gaseous Condition: Stable Disposition: HOME, SELF-CARE Additional Instructions: CT was done in the emergency room which showed a large amount of air within the bowel. Rectal disimpaction/decompression was performed in the ER with a vast amount severe liberated. Recommendations Start G-tube feeds in the morning. Dr. Anglin will be evaluating tomorrow. Dr. Anglin will also be supplementing with potassium through the G-tube. Return to the emergency room for any concerns that the abdomen is getting distended again or if there is any concerns that Ms. Granger is not doing well. Referrals: ALAN ANGLIN MD [Primary Care Provider] - Follow up as needed
[2018-05-17 00:53] VITALS: BP 154/73
== END 2018-05-17 00:53 | disposition home or self-care (01) ==
LOC: ER 19:29
DX: R14.0 Abdominal distension (gaseous) (principal); E78.00 Pure hypercholesterolemia, unspecified; I10 Essential (primary) hypertension; E11.9 Type 2 diabetes mellitus without complications; Z95.0 Presence of cardiac pacemaker; Z93.1 Gastrostomy status; Z86.73 Personal history of transient ischemic attack (TIA), and cerebral infarction without residual deficits
CPT/HCPCS: 36415; 71045; 74176; 80053; 85025; 87070; 87077; 87186; 87205; 99285

== ENCOUNTER 2018-07-18 15:15 | Inpatient (IN) | payer MEDICARE, MEDICAID ==
[2018-07-18 16:09] LABS: AMORPHOUS SEDIMENT,URINE TRACE /HPF; APPEARANCE,URINE SLIGHTLY-CLOUDY; BILIRUBIN,URINE NEGATIVE (NEGATIVE); COLOR,URINE YELLOW; GLUCOSE, URINE NEGATIVE (NEGATIVE); KETONES,URINE NEGATIVE (NEGATIVE); LEUKOCYTE ESTERASE,URINE TRACE (NEGATIVE); NITRITE,URINE NEGATIVE (NEGATIVE); PROTEIN,URINE NEGATIVE (NEGATIVE); URINE SPECIFIC GRAVITY 1.009
[2018-07-18 17:26] LABS: ALANINE AMINOTRANSFERASE 18 U/L (9-52); ALBUMIN 2.6 g/dL (3.5-5.0); ALKALINE PHOSPHATASE 112 U/L (38-126); ASPARTATE AMINO TRANSFERASE 22 U/L (14-36); BILIRUBIN,DIRECT 2.4 mg/dL (0.0-0.4); BILIRUBIN,TOTAL 2.4 mg/dL (0.2-1.3); BLOOD UREA NITROGEN 21 mg/dL (7-20); CALCIUM 8.6 mg/dL (8.4-10.2); CHLORIDE 95 mmol/L (98-107); GLUCOSE 128 mg/dL (75-110); SODIUM 145.6 mmol/L (137-145); TOTAL PROTEIN 6.5 g/dL (6.3-8.2)
[2018-07-18 17:35] LABS: ANION GAP 3 (5-19); CARBON DIOXIDE 48 mmol/L (22-30)
--- NOTE | 2018-07-18 18:16 | RADIOLOGY REPORT (SQ) ---
EXAM DESCRIPTION: KUB/ABDOMEN (SINGLE VIEW) COMPLETED DATE/TIME: 07/18/2018 5:56 pm REASON FOR STUDY: Distended abdomen COMPARISON: 07/03/2018 NUMBER OF VIEWS: One view. TECHNIQUE: Supine radiographic image of the abdomen acquired. LIMITATIONS: None. FINDINGS: BOWEL GAS PATTERN: Large amount of stool in the rectum. Gas-filled colon with mild disten tion of the cecum there is improved compared to the earlier study. The cecum measures [address] diameter. CALCIFICATIONS: No suspicious calcifications. SOFT TISSUES: No gross mass or suggestion of organomegaly. HARDWARE: None in the abdomen. BONES: No acute fracture. No worrisome bone lesions. OTHER: No other significant finding. IMPRESSION: Possible fecal impaction. Gaseous distention of the colon. The cecum remains distended but shows improvement compared to the earlier study from 07/03/2018 TECHNICAL DOCUMENTATION: JOB ID: [id number] [employer]- All Rights Reserved Reading location - IP/workstation name: [email or web address]
[2018-07-18 18:27] LABS: ABSOLUTE LYMPHOCYTES (AUTO) 0.7 10^3/uL (0.5-4.7); ABSOLUTE MONOCYTES (AUTO) 0.3 10^3/uL (0.1-1.4); ABSOLUTE NEUT (AUTO) 8.2 10^3/uL (1.7-8.2); BASOPHILS % (AUTO) 0.2 % (0-2); EOSINOPHILS % (AUTO) 0.1 % (0-6); HEMATOCRIT 27.9 % (36.0-47.0); HEMOGLOBIN 9.5 g/dL (12.0-15.5); LYMPHOCYTES % (AUTO) 7.9 % (13-45); MEAN CORPUSCULAR HEMOGLOBIN 29.4 pg (27.0-33.4); MEAN CORPUSCULAR VOLUME 86 fl (80-97); MONOCYTES % (AUTO) 2.9 % (3-13); RED BLOOD COUNT 3.23 10^6/uL (3.72-5.28); RED CELL DISTRIBUTION WIDTH 17.7 % (11.5-14.0); SEGMENTED NEUTROPHILS % (AUTO) 88.9 % (42-78); TOTAL CELLS COUNTED % (AUTO) 100 %; WHITE BLOOD COUNT 9.3 10^3/uL (4.0-10.5)
[2018-07-18 18:37] LABS: PLATELET COUNT 39 10^3/uL (150-450)
[2018-07-18 18:38] LABS: ANISOCYTOSIS 1+; OVALOCYTES SLIGHT; PLATELET COMMENT DECREASED; POIKILOCYTOSIS 1+; SCHISTOCYTES SLIGHT; TARGET CELLS 1+; TOXIC GRANULATION SLIGHT
--- NOTE | 2018-07-18 19:14 | ER Document Report ---
ED General - General Chief Complaint: Problem with Feeding Tube Stated Complaint: FEEDING TUBE COMPLICATION Time Seen by Provider: 07/18/18 16:34 Notes: [facility] a [facility] a local [facility] who was sent here because staff noted blood and black liquid coming from around the patient's feeding tube in the left upper quadrant of the abdomen. They noted this finding last night and today. Patient has a feeding tube which according to the notes, she is not supposed to be using. She has an IV in her right arm. She was in this hospital for fecal impaction and pseudoobstruction of the bowel just a couple of weeks ago. When she was discharged, she was supposedly instructed not to use the feeding tube but simply to be maintained on IV fluids of D5 and Ringer' s lactate at 100 mL/h. No other history provided. Patient does not speak at all does not follow commands and does not answer questions. TRAVEL OUTSIDE OF THE [place] IN LAST 30 DAYS: No - Related Data Allergies/Adverse Reactions: No Known Allergies Allergy (Verified 02/20/17 23:56) Past Medical History - Social History Smoking Status: Unknown if Ever Smoked Cigarette use (# per day): No Family History: None, Reviewed & Not Pertinent Patient has suicidal ideation: No Patient has homicidal ideation: No - Past Medical History Cardiac Medical History: Reports: Hx Hypercholesterolemia, Hx Hypertension Pulmonary Medical History: Reports: Hx Sleep Apnea Comment Only: Hx Tuberculosis - UNKNOWN Neurological Medical History: Reports: Hx Seizures Endocrine Medical History: Reports: Hx Diabetes Mellitus Type 2 GI Medical History: Reports: Hx Gastroesophageal Reflux Disease Musculoskeletal Medical History: Reports Hx Arthritis Psychiatric Medical History: Reports: Hx Dementia, Hx Depression, Hx Schizophrenia Past Surgical History: Reports: Hx Abdominal Surgery - Peg tube, Hx Cardiac Surgery - Pacemaker, Other - PEG tube placement - Immunizations Hx Diphtheria, Pertussis, Tetanus Vaccination: Yes Hx Pneumococcal Vaccination: 02/20/09 Review of Systems - Review of Systems -: Yes ROS unobtainable due to patient's medical condition Physical Exam - Vital signs Vitals: Resp BP Pulse Ox 20 195/92 H 94 07/18/18 15:37 07/18/18 15:37 07/18/18 15:37 Interpretation: Hypertensive - Notes Notes: PHYSICAL EXAMINATION: GENERAL: Does not speak and does not follow commands, but in no acute distress. Vital signs by EMS normal. Blood pressure slightly elevated at 176/83. Patient is alert, but does not respond to questions or requests. HEAD: Atraumatic, normocephalic. EYES: Pupils equal round and reactive to light, extraocular movements intact. NECK: Normal range of motion, supple. LUNGS: Breath sounds clear and equal bilaterally. HEART: Regular rate and rhythm without murmurs. ABDOMEN: Soft, moderately distended. No masses or guarding or rebound. G-tube in the left upper quadrant. Tissue adjacent and underlying the G-tube is breaking down and somewhat macerated with some small droplets of blood present. No black material noted. Hypertympanitic abdomen. BACK: No tenderness throughout entire back. EXTREMITIES: Normal range of motion without pain. Patient has an IV in her right hand. NEUROLOGICAL: Not ambulatory. Does not speak. Does not follow commands. Does not seem to understand anything being said to her. SKIN: Warm, dry, no rashes. Course - Re-evaluation Re-evalutation: 07/18/18 19:[address] Frye about the patient's thrombocytopenia, hypokalemia, UTI, and abdominal distention and he will admit the patient for inpatient care. - Vital Signs Vital signs: Temp Pulse Resp BP Pulse Ox 10 L 195/92 H 92 07/18/18 15:38 07/18/18 15:37 07/18/18 15:38 - Laboratory Result Diagrams: 07/18/18 18:05 07/18/18 17:04 Laboratory results interpreted by me: 07/18/18 07/18/18 07/18/18 15:42 17:04 18:05 RBC 3.23 L Hgb 9.5 L Hct 27.9 L RDW 17.7 H Plt Count 39 L Seg Neutrophils % 88.9 H Lymphocytes % 7.9 L Monocytes % 2.9 L Sodium 145.6 H Potassium 2.0 L* Chloride 95 L Carbon Dioxide 48 H* Anion Gap 3 L BUN 21 H Glucose 128 H Total Bilirubin 2.4 H Direct Bilirubin 2.4 H Albumin 2.6 L Urine Blood MODERATE H Urine Urobilinogen 4.0 H Ur Leukocyte Esterase TRACE H - Diagnostic Test Radiology results interpreted by me: 07/18/18 19:14 KUB x-ray shows large amounts of stool and gas throughout the abdomen. There may be some slight improvement over previous x-rays. No free air noted. No bowel obstruction pattern evident. Discharge - Discharge Clinical Impression: Thrombocytopenia, Hypokalemia, UTI (urinary tract infection) Condition: Stable Disposition: ADMITTED INPATIENT Admitting Provider: L[facility] Unit Admitted: Medical Floor Referrals: ALAN ANGLIN MD [Primary Care Provider] - Follow up as needed
[2018-07-18] MEDS ORDERED: CEFTRIAXONE INJ 1000 MG VIAL IV ONE (19:17)
[2018-07-18] MEDS ORDERED: POTASSI CL 40 MEQ/D5-1/2NS 1L 40 MEQ/1,000 ML RTUINJ IV ONE (19:18)
[2018-07-18] MEDS ORDERED: HEPARIN SOD (PORCINE) 5,000 UNIT/ML 1 ML SYRINGE SUBCUT SCH (22:00)
[2018-07-18] MEDS ORDERED: VALPROIC ACID PEG SCH (22:00)
[2018-07-18 22:20] LABS: LIPASE 12.2 U/L (23-300); PHOSPHORUS 2.2 mg/dL (2.5-4.5)
[2018-07-18 22:29] LABS: PROTHROMBIN TIME 16.8 SEC (11.4-15.4)
[2018-07-18 22:37] LABS: FREE T4 (FREE THYROXINE) 1.68 ng/dL (0.78-2.19)
[2018-07-18 22:41] LABS: ARTERIAL BLOOD BASE EXCESS 20.6 mmol/L; ARTERIAL BLOOD H2CO3 1.52 mmol/L (1.05-1.35); ARTERIAL BLOOD HCO3 44.9 mmol/L (20-24); ARTERIAL BLOOD PCO2 50.5 mmHg (35-45); ARTERIAL BLOOD PH 7.57 (7.35-7.45); ARTERIAL BLOOD PO2 61.4 mmHg (80-100); ARTERIAL BLOOD TOTAL CO2 46.5 mmol/L (21-25)
[2018-07-18 22:42] LABS: ARTERIAL BLOOD FIO2 2L
[2018-07-18 22:51] LABS: THYROID STIMULATING HORMONE 0.99 uIU/mL (0.47-4.68)
[2018-07-18] MEDS: VALPROATE SODIUM SYRUP 250 MG/5 ML UDCUP PEG SCH (23:37)
[2018-07-19 03:56] LABS: HEMOGLOBIN 8.6 g/dL (12.0-15.5); MEAN CORPUSCULAR HEMOGLOBIN 29.4 pg (27.0-33.4); MEAN CORPUSCULAR HGB CONC 34.3 g/dL (32.0-36.0); MEAN CORPUSCULAR VOLUME 86 fl (80-97); RED BLOOD COUNT 2.91 10^6/uL (3.72-5.28); RED CELL DISTRIBUTION WIDTH 17.5 % (11.5-14.0); WHITE BLOOD COUNT 10.6 10^3/uL (4.0-10.5)
[2018-07-19 04:04] LABS: PLATELET COUNT 31 10^3/uL (150-450)
[2018-07-19 04:08] LABS: ALANINE AMINOTRANSFERASE 19 U/L (9-52); ALBUMIN 2.3 g/dL (3.5-5.0); ALKALINE PHOSPHATASE 103 U/L (38-126); ASPARTATE AMINO TRANSFERASE 21 U/L (14-36); BILIRUBIN,DIRECT 1.5 mg/dL (0.0-0.4); BILIRUBIN,TOTAL 1.5 mg/dL (0.2-1.3); BLOOD UREA NITROGEN 20 mg/dL (7-20); CHLORIDE 96 mmol/L (98-107); CHOLESTEROL 71.87 mg/dL (0-200); GLUCOSE 147 mg/dL (75-110); SODIUM 147.5 mmol/L (137-145); TOTAL PROTEIN 5.9 g/dL (6.3-8.2); TRIGLYCERIDES 150 mg/dL (<150)
[2018-07-19 04:27] LABS: ABSOLUTE LYMPHOCYTES# (MANUAL) 0.7 10^3/uL (0.5-4.7); ABSOLUTE MONOCYTES # (MANUAL) 0.6 10^3/uL (0.1-1.4); ABSOLUTE NEUTROPHILS# (MANUAL) 9.2 10^3/uL (1.7-8.2); BASOPHILS % (MANUAL) 0 % (0-2); EOSINOPHILS % (MANUAL) 0 % (0-6); LYMPHOCYTES % (MANUAL) 7 % (13-45); MONOCYTES % (MANUAL) 6 % (3-13); SEGMENTED NEUTROPHILS % (MAN) 73 % (42-78); TOTAL CELLS COUNTED 100
[2018-07-19 04:30] LABS: ANION GAP 8 (5-19); ANISOCYTOSIS 1+; DIRECT LDL < 30 mg/dL (<100); HYPOCHROMASIA 1+; PLATELET COMMENT DECREASED; PLATELET LARGE PRESENT; POIKILOCYTOSIS 2+; TARGET CELLS 2+; TOXIC GRANULATION 2+; TOXIC VACUOLATION PRESENT
[2018-07-19 04:33] LABS: CARBON DIOXIDE 44 mmol/L (22-30)
[2018-07-19] MEDS: POTASSI CL 40 MEQ/NS 1L 1,000 ML IV PRN (06:50)
[2018-07-19] MEDS: VALPROATE SODIUM SYRUP 250 MG/5 ML UDCUP PEG SCH ×2 (11:29→22:42)
[2018-07-19 16:40] LABS: APPEARANCE,URINE SLIGHTLY-CLOUDY; BILIRUBIN,URINE NEGATIVE (NEGATIVE); GLUCOSE, URINE NEGATIVE (NEGATIVE); KETONES,URINE NEGATIVE (NEGATIVE); LEUKOCYTE ESTERASE,URINE MODERATE (NEGATIVE); NITRITE,URINE NEGATIVE (NEGATIVE); PROTEIN,URINE 30 mg/dL (NEGATIVE); URINE SPECIFIC GRAVITY 1.012
[2018-07-19 16:41] LABS: COLOR,URINE YELLOW
[2018-07-19] MEDS: POTASSI CL 20 MEQ/50 ML RIDER 20 MEQ/50 ML RTUPB IV SCH ×2 (18:45→18:53)
[2018-07-19] MEDS: POTASSIUM CHLORIDE 20 MEQ/50 ML RTU IV SCH ×2 (19:28→21:42)
--- NOTE | 2018-07-19 19:51 | PDOC H&P ---
History of Present Illness Admission Date/PCP: 07/18/18 19:52 ALAN ANGLIN MD History of Present Illness: PARADISE ANTUNEZ is a 77 year old female, She has advanced dementia, nonverbal, history of chronic pseudoobstruction of the colon, she [facility] for evaluation of hemorrhage around the PEG tube site. In the emergency room she was evaluated, she was found to have severe hypokalemia, abdominal distention also found was severe metabolic alkalosis most likely from dehydration.No history could be obtained from this patient, she has severe sepsis due to urinary tract infection Past Medical History Cardiac Medical History: Reports: Hyperlipidema, Hypertension Pulmonary Medical History: Reports: Sleep Apnea Comment Only: Tuberculosis - UNKNOWN Neurological Medical History: Reports: Seizures Endocrine Medical History: Reports: Diabetes Mellitus Type 2 GI Medical History: Reports: Gastroesophageal Reflux Disease Musculoskeltal Medical History: Reports: Arthritis Psychiatric Medical History: Reports: Dementia, Depression Hematology: Reports: Anemia Past Surgical History Past Surgical History: Reports: Other - PEG tube placement Social History Smoking Status: Unknown if Ever Smoked Hx Recreational Drug Use: No Hx Prescription Drug Abuse: No - Advance Directive Resuscitation Status: Do Not Resuscitate Family History Family History: None, Reviewed & Not Pertinent Parental Family History Reviewed: Yes Children Family History Reviewed: Yes Sibling(s) Family History Reviewed.: Yes Medication/Allergy Home Medications: Valproic Acid (As Sodium Salt) [Valproic Acid] 10 ml PEG Q12 12/15/17 Acetaminophen [Tylenol Extra Strength] 1,000 mg PEG Q8HP PRN 07/03/18 Furosemide [Lasix 40 mg Tablet] 40 mg PEG Q12HP PRN 07/03/18 Hyoscyamine Sulfate [Levsin] 0.125 mg PEG ASDIR PRN 07/03/18 Lactulose [Constulose 10 gm/15 mL Oral Solution] 7.5 ml PEG HSP PRN 07/03/18 Multivit-Minerals/Ferrous Gluc [Certa Irineo Liquid] 15 ml PEG DAILY 07/03/18 Polyethylene Glycol 3350 [Miralax Powder 17 gm/Packet] 1 packet PEG DAILY Ranitidine HCl [Zantac 150 mg Tablet] 150 mg PEG BID 07/03/18 Scopolamine 1 each TD Q3D 07/03/18 Allergies/Adverse Reactions: No Known Allergies Allergy (Verified 02/20/17 23:56) Review of Systems ROS unobtainable: Due to mental status Physical Exam Vital Signs: Temp Pulse Resp BP Pulse Ox 98.3 F 96 20 151/79 H 98 07/19/18 17:35 07/19/18 17:35 07/19/18 17:35 07/19/18 17:35 07/19/18 17:35 Intake & Output 07/18/18 07/19/18 07/20/18 06:59 06:59 06:59 Intake Total 1000 Output Total 450 Balance 1000 -450 Weight 76.4 kg General appearance: PRESENT: other - Eyes are open, no response to verbal commands Eye exam: PRESENT: PERRLA Respiratory exam: PRESENT: rhonchi Cardiovascular exam: PRESENT: +S1, +S2 GI/Abdominal exam: PRESENT: distended Neurological exam: PRESENT: alert Results Laboratory Results: 07/19/18 03:31 07/19/18 03:31 07/18/18 07/18/18 07/18/18 21:50 21:50 21:50 WBC RBC Hgb Hct MCV MCH MCHC RDW Plt Count Seg Neutrophils % Lymphocytes % Monocytes % Eosinophils % Basophils % Absolute Neutrophils Absolute Lymphocytes Absolute Monocytes Absolute Eosinophils Absolute Basophils Carbonic Acid HCO3/H2CO3 Ratio ABG pH ABG pCO2 ABG pO2 ABG HCO3 ABG O2 Saturation ABG Base Excess FiO2 Sodium Potassium Chloride Carbon Dioxide Anion Gap BUN Creatinine Est GFR ( Amer) Est GFR (Non-Af Amer) Glucose Calcium Phosphorus 2.2 L Magnesium 1.7 Total Bilirubin AST ALT Alkaline Phosphatase Ammonia < 8.7 L Total Protein Albumin Triglycerides Cholesterol LDL Cholesterol Direct VLDL Cholesterol HDL Cholesterol Amylase 35 Lipase 12.2 L TSH 0.99 Free T4 1.68 Urine Color Urine Appearance Urine pH Ur Specific [place] Urine Protein Urine Glucose (UA) Urine Ketones Urine Blood Urine Nitrite Ur Leukocyte Esterase Urine WBC (Auto) Urine RBC (Auto) 07/18/18 07/19/18 07/19/18 22:35 03:31 03:31 WBC 10.6 H RBC 2.91 L Hgb 8.6 L Hct 25.0 L MCV 86 MCH 29.4 MCHC 34.3 RDW 17.5 H Plt Count 31 L Seg Neutrophils % Not Reportable Lymphocytes % Not Reportable Monocytes % Not Reportable Eosinophils % Not Reportable Basophils % Not Reportable Absolute Neutrophils Not Reportable Absolute Lymphocytes Not Reportable Absolute Monocytes Not Reportable Absolute Eosinophils Not Reportable Absolute Basophils Not Reportable Carbonic Acid 1.52 H HCO3/H2CO3 Ratio 29:1 ABG pH 7.57 H ABG pCO2 50.5 H ABG pO2 61.4 L ABG HCO3 44.9 H ABG O2 Saturation 94.0 ABG Base Excess 20.6 FiO2 2L Sodium 147.5 H Potassium 2.0 L* Chloride 96 L Carbon Dioxide 44 H* Anion Gap 8 BUN 20 Creatinine 0.72 Est GFR ( Amer) > 60 Est GFR (Non-Af Amer) > 60 Glucose 147 H Calcium 8.0 L Phosphorus Magnesium Total Bilirubin 1.5 H AST 21 ALT 19 Alkaline Phosphatase 103 Ammonia Total Protein 5.9 L Albumin 2.3 L Triglycerides 150 Cholesterol 71.87 LDL Cholesterol Direct < 30 VLDL Cholesterol 30.0 HDL Cholesterol 8 L Amylase Lipase TSH Free T4 Urine Color Urine Appearance Urine pH Ur Specific [place] Urine Protein Urine Glucose (UA) Urine Ketones Urine Blood Urine Nitrite Ur Leukocyte Esterase Urine WBC (Auto) Urine RBC (Auto) 07/19/18 16:25 WBC RBC Hgb Hct MCV MCH MCHC RDW Plt Count Seg Neutrophils % Lymphocytes % Monocytes % Eosinophils % Basophils % Absolute Neutrophils Absolute Lymphocytes Absolute Monocytes Absolute Eosinophils Absolute Basophils Carbonic Acid HCO3/H2CO3 Ratio ABG pH ABG pCO2 ABG pO2 ABG HCO3 ABG O2 Saturation ABG Base Excess FiO2 Sodium Potassium Chloride Carbon Dioxide Anion Gap BUN Creatinine Est GFR ( Amer) Est GFR (Non-Af Amer) Glucose Calcium Phosphorus Magnesium Total Bilirubin AST ALT Alkaline Phosphatase Ammonia Total Protein Albumin Triglycerides Cholesterol LDL Cholesterol Direct VLDL Cholesterol HDL Cholesterol Amylase Lipase TSH Free T4 Urine Color YELLOW Urine Appearance SLIGHTLY-CLOUDY Urine pH 7.0 Ur Specific [place] 1.012 Urine Protein 30 H Urine Glucose (UA) NEGATIVE Urine Ketones NEGATIVE Urine Blood MODERATE H Urine Nitrite NEGATIVE Ur Leukocyte Esterase MODERATE H Urine WBC (Auto) 31 Urine RBC (Auto) 11 07/18/18 07/18/18 07/19/18 21:50 21:50 03:31 Troponin I 0.047 0.041 NT-Pro-B Natriuret Pep [id number] H 07/19/18 09:59 Troponin I 0.031 NT-Pro-B Natriuret Pep Impressions: KUB X-Ray 07/18/18 16:40 IMPRESSION: Possible fecal impaction. Gaseous distention of the colon. The cecum remains distended but shows improvement compared to the earlier study from 07/03/2018 Assessment & Plan - Diagnosis (1) Sepsis Qualifiers: Sepsis type: sepsis due to unspecified organism Qualified Code(s): A41.9 - Sepsis, unspecified organism Is this a current diagnosis for this admission?: Yes (2) Metabolic alkalosis Is this a current diagnosis for this admission?: Yes (3) Hypokalemia Is this a current diagnosis for this admission?: Yes (4) Pseudoobstruction of colon Is this a current diagnosis for this admission?: Yes (5) Gram negative septicemia Is this a current diagnosis for this admission?: Yes (6) Urinary tract infection Qualifiers: Urinary tract infection type: site unspecified Hematuria presence: without hematuria Qualified Code(s): N39.0 - Urinary tract infection, site not specified Is this a current diagnosis for this admission?: Yes - Plan Summary Plan Summary: Patient DNR extremely poor prognosis, Treat with IV antibiotic, IV fluid
[2018-07-19] MEDS ORDERED: CEFTRIAXONE SODIUM 1,000 MG in NORMAL SALINE 50 ML IV SCH (22:00)
[2018-07-19] MEDS ORDERED: CEFTRIAXONE INJ 500 MG VIAL ONE (22:03)
[2018-07-20] MEDS: POTASSIUM CHLORIDE 20 MEQ/50 ML RTU IV SCH (00:44)
[2018-07-20] MEDS: POTASSI CL 40 MEQ/NS 1L 1,000 ML IV PRN ×2 (05:33→17:23)
[2018-07-20 06:30] LABS: HEMATOCRIT 23.4 % (36.0-47.0); MEAN CORPUSCULAR HEMOGLOBIN 29.3 pg (27.0-33.4); MEAN CORPUSCULAR HGB CONC 34.3 g/dL (32.0-36.0); MEAN CORPUSCULAR VOLUME 86 fl (80-97); RED BLOOD COUNT 2.73 10^6/uL (3.72-5.28); RED CELL DISTRIBUTION WIDTH 17.6 % (11.5-14.0); WHITE BLOOD COUNT 20.3 10^3/uL (4.0-10.5)
[2018-07-20 06:43] LABS: ALANINE AMINOTRANSFERASE 24 U/L (9-52); ALKALINE PHOSPHATASE 96 U/L (38-126); ASPARTATE AMINO TRANSFERASE 14 U/L (14-36); BILIRUBIN,DIRECT 1.2 mg/dL (0.0-0.4); BILIRUBIN,TOTAL 1.2 mg/dL (0.2-1.3); BLOOD UREA NITROGEN 21 mg/dL (7-20); CALCIUM 7.6 mg/dL (8.4-10.2); CHLORIDE 102 mmol/L (98-107); GLUCOSE 118 mg/dL (75-110); SODIUM 147.8 mmol/L (137-145); TOTAL PROTEIN 5.3 g/dL (6.3-8.2)
[2018-07-20 06:53] LABS: ANION GAP 2 (5-19)
[2018-07-20 06:54] LABS: CARBON DIOXIDE 44 mmol/L (22-30); POTASSIUM 2.7 mmol/L (3.6-5.0)
[2018-07-20 07:05] LABS: ABSOLUTE NEUTROPHILS# (MANUAL) 19.3 10^3/uL (1.7-8.2); BASOPHILS % (MANUAL) 0 % (0-2); EOSINOPHILS % (MANUAL) 0 % (0-6); LYMPHOCYTES % (MANUAL) 5 % (13-45); MONOCYTES % (MANUAL) 0 % (3-13); SEGMENTED NEUTROPHILS % (MAN) 95 % (42-78); TOTAL CELLS COUNTED 100
[2018-07-20 07:06] LABS: ANISOCYTOSIS 1+; PLATELET COMMENT DECREASED; PLATELET LARGE PRESENT; SCHISTOCYTES SLIGHT; TOXIC GRANULATION SLIGHT
[2018-07-20 07:08] LABS: PLATELET COUNT 28 10^3/uL (150-450)
[2018-07-20] MEDS: VALPROATE SODIUM SYRUP 250 MG/5 ML UDCUP PEG SCH ×2 (09:44→21:09)
[2018-07-20 13:26] LABS: PATH REVIEW PATHOLOGIST REVIEWED
--- NOTE | 2018-07-20 13:33 | Physician Advisory Note ---
Physician Advisor ProgressNote .: Pursuant to the plan for [facility], I have reviewed the medical record for this patient. Physician Advisor Statement: Please consider documenting, if you agree: 1. "sepsis due to UTI, present on adm, evidenced by tachycardia w/subsequent development of leukocytosis, along with severe acute thrombocytopenia, acute hyperbilirubinemia, and (+)BCs & ur cx." 2. "acute hypernatremia, suspect due to " (dehyd?) 3. "suspected protein-calorie malnutrition [state mild, mod, or severe] with BMI 27.3, ____[?appetite loss, poor po intake, ]" [if possible - marielle if severe -, give specifics on intake, wt loss, loss of SQ fat & muscle mass (mild/mod/sev), diminished hand organizational psychologist strength (obvious?) , & clinical importance such as (A) nutritional assessment ordered, (B) modified diet or supplements ordered, (C) additional labs ordered, (D) prolonged wound healing time, (E) delayed infxn clearance] - or dental service technician can document this if consult is needed ... Thanks! CK
[2018-07-20 14:55] LABS: BAND NEUTROPHILS % (MANUAL) 14 % (3-5)
[2018-07-20 15:00] LABS: PATH REVIEW PATHOLOGIST REVIEWED
--- NOTE | 2018-07-20 20:14 | PDOC PROGRESS REPORT ---
Subjective Progress Note for:: 07/20/18 Subjective:: Patient seen by the bedside, is nonverbal Reason For Visit: HYPOKALEMIA,METABOLIC ALKALOSIS,ADVANCED DEMENTIA Physical Exam Vital Signs: Temp Pulse Resp BP Pulse Ox 97.4 F 88 14 151/86 H 100 07/20/18 15:31 07/20/18 15:31 07/20/18 15:31 07/20/18 15:31 07/20/18 15:31 Intake & Output 07/19/18 07/20/18 07/21/18 06:59 06:59 06:59 Intake Total 1000 1178 1220 Output Total 750 150 Balance 5735 900 0483 Weight 76.6 kg 76.6 kg Eye exam: PRESENT: PERRLA Respiratory exam: PRESENT: rhonchi Cardiovascular exam: PRESENT: +S1, +S2 GI/Abdominal exam: PRESENT: soft Neurological exam: PRESENT: alert Results Laboratory Results: 07/20/18 06:04 07/20/18 06:04 07/20/18 07/20/18 06:04 06:04 WBC 20.3 H RBC 2.73 L Hgb 8.0 L Hct 23.4 L MCV 86 MCH 29.3 MCHC 34.3 RDW 17.6 H Plt Count 28 L* Seg Neutrophils % Not Reportable Lymphocytes % Not Reportable Monocytes % Not Reportable Eosinophils % Not Reportable Basophils % Not Reportable Absolute Neutrophils Not Reportable Absolute Lymphocytes Not Reportable Absolute Monocytes Not Reportable Absolute Eosinophils Not Reportable Absolute Basophils Not Reportable Sodium 147.8 H Potassium 2.7 L* Chloride 102 Carbon Dioxide 44 H* Anion Gap 2 L BUN 21 H Creatinine 0.71 Est GFR ( Amer) > 60 Est GFR (Non-Af Amer) > 60 Glucose 118 H Calcium 7.6 L Total Bilirubin 1.2 AST 14 ALT 24 Alkaline Phosphatase 96 Total Protein 5.3 L Albumin 2.0 L 07/18/18 07/18/18 07/19/18 21:50 21:50 03:31 Troponin I 0.047 0.041 NT-Pro-B Natriuret Pep [id number] H 07/19/18 09:59 Troponin I 0.031 NT-Pro-B Natriuret Pep Impressions: KUB X-Ray 07/18/18 16:40 IMPRESSION: Possible fecal impaction. Gaseous distention of the colon. The cecum remains distended but shows improvement compared to the earlier study from 07/03/2018 Assessment & Plan - Diagnosis (1) Metabolic alkalosis Is this a current diagnosis for this admission?: Yes (2) Hypokalemia Is this a current diagnosis for this admission?: Yes (3) Pseudoobstruction of colon Is this a current diagnosis for this admission?: Yes (4) Gram negative septicemia Is this a current diagnosis for this admission?: Yes (5) Sepsis Qualifiers: Sepsis type: sepsis due to unspecified organism Qualified Code(s): A41.9 - Sepsis, unspecified organism Is this a current diagnosis for this admission?: Yes (6) Urinary tract infection Qualifiers: Urinary tract infection type: site unspecified Hematuria presence: without hematuria Qualified Code(s): N39.0 - Urinary tract infection, site not specified Is this a current diagnosis for this admission?: Yes
[2018-07-20] MEDS: CEFTRIAXONE SODIUM 1,000 MG in DEXTROSE 5%-WATER 50 ML IV SCH (21:09)
[2018-07-21] MEDS: POTASSI CL 40 MEQ/NS 1L 1,000 ML IV PRN ×2 (04:09→13:13)
[2018-07-21 05:15] LABS: MEAN CORPUSCULAR HGB CONC 32.3 g/dL (32.0-36.0); MEAN CORPUSCULAR VOLUME 87 fl (80-97); RED BLOOD COUNT 2.77 10^6/uL (3.72-5.28); RED CELL DISTRIBUTION WIDTH 17.5 % (11.5-14.0); WHITE BLOOD COUNT 25.9 10^3/uL (4.0-10.5)
[2018-07-21 05:31] LABS: ABSOLUTE MONOCYTES # (MANUAL) 0.8 10^3/uL (0.1-1.4); ABSOLUTE NEUTROPHILS# (MANUAL) 24.1 10^3/uL (1.7-8.2); BAND NEUTROPHILS % (MANUAL) 8 % (3-5); BASOPHILS % (MANUAL) 0 % (0-2); EOSINOPHILS % (MANUAL) 0 % (0-6); LYMPHOCYTES % (MANUAL) 4 % (13-45); MONOCYTES % (MANUAL) 3 % (3-13); SEGMENTED NEUTROPHILS % (MAN) 85 % (42-78); TOTAL CELLS COUNTED 100
[2018-07-21 05:33] LABS: ANISOCYTOSIS 2+; PLATELET COMMENT DECREASED; POIKILOCYTOSIS 2+; TARGET CELLS 2+; TOXIC GRANULATION SLIGHT; TOXIC VACUOLATION PRESENT
[2018-07-21 05:36] LABS: HEMOGLOBIN 7.8 g/dL (12.0-15.5); PLATELET COUNT 30 10^3/uL (150-450)
[2018-07-21 06:05] LABS: ALANINE AMINOTRANSFERASE 13 U/L (9-52); ALBUMIN 2.2 g/dL (3.5-5.0); ALKALINE PHOSPHATASE 163 U/L (38-126); ASPARTATE AMINO TRANSFERASE 28 U/L (14-36); BILIRUBIN,DIRECT 0.9 mg/dL (0.0-0.4); BILIRUBIN,TOTAL 0.9 mg/dL (0.2-1.3); BLOOD UREA NITROGEN 23 mg/dL (7-20); CALCIUM 7.6 mg/dL (8.4-10.2); GLUCOSE 119 mg/dL (75-110); POTASSIUM 3.6 mmol/L (3.6-5.0); TOTAL PROTEIN 5.6 g/dL (6.3-8.2)
[2018-07-21 06:24] LABS: CHLORIDE 109 mmol/L (98-107); SODIUM 151.8 mmol/L (137-145)
[2018-07-21 06:35] LABS: ANION GAP 2 (5-19)
[2018-07-21 06:37] LABS: CARBON DIOXIDE 41 mmol/L (22-30)
[2018-07-21] MEDS: VALPROATE SODIUM SYRUP 250 MG/5 ML UDCUP PEG SCH ×2 (09:03→21:58)
--- NOTE | 2018-07-21 19:20 | RADIOLOGY REPORT (SQ) ---
EXAM DESCRIPTION: CT SOFT TISSUE NECK WITHOUT COMPLETED DATE/TIME: 07/21/2018 5:57 pm REASON FOR STUDY: abscess COMPARISON: None. TECHNIQUE: Noncontrast scanning from skull base through lung apices with review of bone, soft tissue and lung windows. Reconstructed coronal and sagittal MPR images reviewed. All images stored on PAC S. All CT scanners at this facility use dose modulation, iterative reconstruction, and/or weight based d osing when appropriate to reduce radiation dose to as low as reasonably achievable (ALARA). [facility]: Dose Right [facility]: CareDose [facility]: Dose Right [facility]: Teradose 4D [facility]: [employer] RADIATION DOSE: CT Rad equipment meets quality standard of care and radiation dose reduction techniq ues were employed. CTDIvol: 17.0 mGy. DLP: 519 mGy-cm. mGy. LIMITATIONS: None. FINDINGS: SKULL BASE: Intact. MAJOR SALIVARY GLANDS: Right parotid gland is prominent. LYMPHADENOPATHY: No adenopathy. MUCOSAL MASSES OR ASYMMETRY: There is considerable pharyngeal mucosal thickening on the right. No de finite abscess is appreciated. LARYNX/CORDS: No abnormal findings. LUNG APICES: Left upper lobe pneumonia. BONES: Intact. THYROID: 12 mm low-density left thyroid nodule. PARANASAL SINUSES: Clear. OTHER: Hydronephrosis. Marked cortical atrophy. Subcutaneous edema. IMPRESSION: 1. Prominent right parotid gland. 2. Asymmetrical of mucosal thickening in the right side of the pharynx. No definite concepción appendicea l abscess is appreciated. Study is limited by lack of contrast. 3. Left upper lobe pneumonia. 4. Left thyroid nodule. 5. Extensive cerebral changes. 6. Subcutaneous edema. TECHNICAL DOCUMENTATION: JOB ID: [id number] Quality ID # [id number]: Final reports with documentation of one or more dose reduction techniques (e.g., Au tomated exposure control, adjustment of the mA and/or kV according to patient size, use of iterative reconstruction technique) 2010 [employer]- All Rights Reserved Reading location - IP/workstation name: [email or web address]
--- NOTE | 2018-07-21 21:21 | PDOC PROGRESS REPORT ---
Subjective Progress Note for:: 07/21/18 Subjective:: Patient seen by the bedside she has severe sepsis, prominent parotid gland enlargement, Reason For Visit: HYPOKALEMIA,METABOLIC ALKALOSIS,ADVANCED DEMENTIA Physical Exam Vital Signs: Temp Pulse Resp BP Pulse Ox 97.4 F 88 16 133/90 H 94 07/20/18 23:48 07/21/18 16:07 07/21/18 16:07 07/21/18 16:07 07/21/18 16:07 Intake & Output 07/20/18 07/21/18 07/22/18 06:59 06:59 06:59 Intake Total 1178 2220 957 Output Total 750 350 325 Balance 428 1870 632 Weight 76.6 kg 82.6 kg Respiratory exam: PRESENT: rhonchi Cardiovascular exam: PRESENT: +S1, +S2 Neurological exam: PRESENT: alert Results Laboratory Results: 07/21/18 04:33 07/21/18 04:33 07/21/18 07/21/18 07/21/18 04:33 04:33 04:33 WBC 25.9 H RBC 2.77 L Hgb 7.8 L Hct 24.0 L MCV 87 MCH 28.0 MCHC 32.3 RDW 17.5 H Plt Count 30 L* Seg Neutrophils % Not Reportable Lymphocytes % Not Reportable Monocytes % Not Reportable Eosinophils % Not Reportable Basophils % Not Reportable Absolute Neutrophils Not Reportable Absolute Lymphocytes Not Reportable Absolute Monocytes Not Reportable Absolute Eosinophils Not Reportable Absolute Basophils Not Reportable Sodium Cancelled 151.8 H Potassium Cancelled 3.6 Chloride Cancelled 109 H Carbon Dioxide Cancelled 41 H* Anion Gap Cancelled 2 L BUN Cancelled 23 H Creatinine Cancelled 0.66 Est GFR ( Amer) Cancelled > 60 Est GFR (Non-Af Amer) Cancelled > 60 Glucose Cancelled 119 H Calcium Cancelled 7.6 L Total Bilirubin Cancelled 0.9 AST Cancelled 28 ALT Cancelled 13 Alkaline Phosphatase Cancelled 163 H Total Protein Cancelled 5.6 L Albumin Cancelled 2.2 L 07/18/18 21:50 Blood Blood Culture - Final Pseudomonas Aeruginosa 07/18/18 07/18/18 07/19/18 21:50 21:50 03:31 Troponin I 0.047 0.041 NT-Pro-B Natriuret Pep [id number] H 07/19/18 09:59 Troponin I 0.031 NT-Pro-B Natriuret Pep Impressions: KUB X-Ray 07/18/18 16:40 IMPRESSION: Possible fecal impaction. Gaseous distention of the colon. The cecum remains distended but shows improvement compared to the earlier study from 07/03/[address] 07/21/18 00:00 IMPRESSION: 1. Prominent right parotid gland. 2. Asymmetrical of mucosal thickening in the right side of the pharynx. No definite concepción appendiceal abscess is appreciated. Study is limited by lack of contrast. 3. Left upper lobe pneumonia. 4. Left thyroid nodule. 5. Extensive cerebral changes. 6. Subcutaneous edema. Assessment & Plan - Diagnosis (1) Metabolic alkalosis Is this a current diagnosis for this admission?: Yes (2) Hypokalemia Is this a current diagnosis for this admission?: Yes (3) Pseudoobstruction of colon Is this a current diagnosis for this admission?: Yes (4) Gram negative septicemia Is this a current diagnosis for this admission?: Yes (5) Sepsis Qualifiers: Sepsis type: sepsis due to unspecified organism Qualified Code(s): A41.9 - Sepsis, unspecified organism Is this a current diagnosis for this admission?: Yes (6) Urinary tract infection Qualifiers: Urinary tract infection type: site unspecified Hematuria presence: without hematuria Qualified Code(s): N39.0 - Urinary tract infection, site not specified Is this a current diagnosis for this admission?: Yes (7) Pseudomonas septicemia Is this a current diagnosis for this admission?: Yes Plan: Continue IV antibiotic
[2018-07-21] MEDS: CEFTRIAXONE SODIUM 1,000 MG in DEXTROSE 5%-WATER 50 ML IV SCH (21:58)
[2018-07-22] MEDS: POTASSI CL 40 MEQ/NS 1L 1,000 ML IV PRN ×2 (00:04→13:06)
[2018-07-22] MEDS: VALPROATE SODIUM SYRUP 250 MG/5 ML UDCUP PEG SCH ×2 (11:44→21:15)
--- NOTE | 2018-07-22 12:35 | PDOC PROGRESS REPORT ---
Subjective Progress Note for:: 07/22/18 Subjective:: Patient is non verbal and unable to contribute much to medical history. Nursing staff reported recommendation of supervisor esters and emulsifiers for tube feeding. No reported fever. Remain on IV fluid and antibiotic therapy. Reason For Visit: HYPOKALEMIA,METABOLIC ALKALOSIS,ADVANCED DEMENTIA Physical Exam Vital Signs: Temp Pulse Resp BP Pulse Ox 93.6 F L 86 18 139/74 H 95 07/22/18 12:00 07/22/18 12:00 07/22/18 12:00 07/22/18 12:00 07/22/18 12:00 Intake & Output 07/21/18 07/22/18 07/23/18 06:59 06:59 06:59 Intake Total 2220 1957 50 Output Total 350 1125 Balance 1870 832 50 Weight 82.6 kg 83.4 kg General appearance: PRESENT: no acute distress Head exam: PRESENT: atraumatic, normocephalic Eye exam: PRESENT: EOMI, PERRLA Ear exam: PRESENT: normal external ear exam Mouth exam: PRESENT: moist, other - Right parotid gland swelling with some expressed tenderness to palpation Teeth exam: PRESENT: poor dentation Respiratory exam: PRESENT: decreased breath sounds - bilateral lung bases Cardiovascular exam: PRESENT: RRR. ABSENT: diastolic murmur, rubs, systolic murmur Vascular exam: ABSENT: pallor GI/Abdominal exam: PRESENT: normal bowel sounds, other - PEG site with minimal drainage. Musculoskeletal exam: PRESENT: deformity - contracture deformity Neurological exam: PRESENT: alert Skin exam: PRESENT: dry, warm Results Laboratory Results: 07/21/18 04:33 07/21/18 04:33 07/18/18 21:40 Blood Blood Culture - Final Pseudomonas Aeruginosa Klebsiella Pneumoniae 07/18/18 21:50 Blood Blood Culture - Final Pseudomonas Aeruginosa 07/18/18 07/18/18 07/19/18 21:50 21:50 03:31 Troponin I 0.047 0.041 NT-Pro-B Natriuret Pep 86771 H 07/19/18 09:59 Troponin I 0.031 NT-Pro-B Natriuret Pep Impressions: KUB X-Ray 07/18/18 16:40 IMPRESSION: Possible fecal impaction. Gaseous distention of the colon. The cecum remains distended but shows improvement compared to the earlier study from 07/03/[address] 07/21/18 00:00 IMPRESSION: 1. Prominent right parotid gland. 2. Asymmetrical of mucosal thickening in the right side of the pharynx. No definite concepción appendiceal abscess is appreciated. Study is limited by lack of contrast. 3. Left upper lobe pneumonia. 4. Left thyroid nodule. 5. Extensive cerebral changes. 6. Subcutaneous edema. Assessment & Plan - Diagnosis (1) Pseudomonas septicemia Is this a current diagnosis for this admission?: Yes Plan: D/C IV Rocephin coverage. Start on IV Zosyn for broader coverage. (2) Klebsiella pneumoniae infection Is this a current diagnosis for this admission?: Yes Plan: Start on IV Zosyn therapy for broader coverage. (3) Thrombocytopenia Is this a current diagnosis for this admission?: Yes Plan: Probably due to septicemia. Continue to monitor CBC indices. Hold Lovenox for platelet count less 100K. Obtain lower extremities venous Doppler evaluation to r/o DVT. (4) Parotiditis Is this a current diagnosis for this admission?: Yes Plan: Add IV Vancomycin coverage. Maintain on IV Zosyn coverage. Patient may need ENT service if no improvement for possible sialolithiasis (5) Protein calorie malnutrition Qualifiers: Protein-calorie malnutrition severity: moderate Qualified Code(s): E44.0 - Moderate protein-calorie malnutrition Is this a current diagnosis for this admission?: Yes Plan: Start pn Glucena 1.2 sabina/mL at 20 mL/hour and increase by 15 mL/shift to max 65 ml/hour. - Time Time Spent with patient: 25-34 minutes Medications reviewed and adjusted accordingly: Yes Anticipated discharge: SNF Within: Other - Inpatient Certification Based on my medical assessment, after consideration of the patient's comorbidities, presenting symptoms, or acuity I expect that the services needed warrant INPATIENT care.: Yes I certify that my determination is in accordance with my understanding of Medicare's requirements for reasonable and necessary INPATIENT services [42 CFR 412.3e].: Yes Medical Necessity: Need Close Monitoring Due to Risk of Patient Decompensation, Need For IV Fluids, Need For Continuous Telemetry Monitoring, Need for IV Antibiotics, Risk of Complication if Not Cared For in Hospital Post Hospital Care: D/C or Transfer Summary - Plan Summary Plan Summary: See covering attending physician orders.
[2018-07-22] MEDS ORDERED: VANCOMYCIN HCL 0 MG in DEXTROSE 5%-WATER 250 ML IV NR (12:45)
[2018-07-22] MEDS: PIPERACILLIN SODIUM/TAZOBACTAM 3.375 GM in NORMAL SALINE 100 ML IV SCH ×2 (15:03→21:15)
[2018-07-22] MEDS: VANCOMYCIN HCL 1,000 MG in DEXTROSE 5%-WATER 250 ML IV SCH (18:17)
[2018-07-23] MEDS: PIPERACILLIN SODIUM/TAZOBACTAM 3.375 GM in NORMAL SALINE 100 ML IV SCH ×4 (02:18→22:53)
[2018-07-23] MEDS: POTASSI CL 40 MEQ/NS 1L 1,000 ML IV PRN (02:19)
[2018-07-23 05:11] LABS: HEMATOCRIT 19.7 % (36.0-47.0); MEAN CORPUSCULAR HEMOGLOBIN 28.5 pg (27.0-33.4); MEAN CORPUSCULAR HGB CONC 33.5 g/dL (32.0-36.0); MEAN CORPUSCULAR VOLUME 85 fl (80-97); RED BLOOD COUNT 2.32 10^6/uL (3.72-5.28); RED CELL DISTRIBUTION WIDTH 17.6 % (11.5-14.0); WHITE BLOOD COUNT 12.9 10^3/uL (4.0-10.5)
[2018-07-23 05:31] LABS: BLOOD UREA NITROGEN 21 mg/dL (7-20); CALCIUM 7.4 mg/dL (8.4-10.2); GLUCOSE 110 mg/dL (75-110); POTASSIUM 4.3 mmol/L (3.6-5.0)
[2018-07-23 05:36] LABS: ABSOLUTE LYMPHOCYTES# (MANUAL) 3.1 10^3/uL (0.5-4.7); ABSOLUTE MONOCYTES # (MANUAL) 0.6 10^3/uL (0.1-1.4); ABSOLUTE NEUTROPHILS# (MANUAL) 9.2 10^3/uL (1.7-8.2); ANISOCYTOSIS 2+; BAND NEUTROPHILS % (MANUAL) 5 % (3-5); BASOPHILS % (MANUAL) 0 % (0-2); CARBON DIOXIDE 32 mmol/L (22-30); CHLORIDE 118 mmol/L (98-107); EOSINOPHILS % (MANUAL) 0 % (0-6); LYMPHOCYTES % (MANUAL) 22 % (13-45); MONOCYTES % (MANUAL) 5 % (3-13); PLATELET COMMENT DECREASED; POIKILOCYTOSIS 3+; POLYCHROMASIA 1+; SCHISTOCYTES SLIGHT; SEGMENTED NEUTROPHILS % (MAN) 66 % (42-78); SODIUM 152.7 mmol/L (137-145); TARGET CELLS 3+; TOTAL CELLS COUNTED 100; TOXIC GRANULATION SLIGHT
[2018-07-23 05:37] LABS: PLATELET COUNT 19 10^3/uL (150-450)
[2018-07-23 05:38] LABS: HEMOGLOBIN 6.6 g/dL (12.0-15.5)
[2018-07-23] MEDS: VANCOMYCIN HCL 1,000 MG in DEXTROSE 5%-WATER 250 ML IV SCH ×2 (05:45→17:19)
[2018-07-23 05:50] LABS: ANION GAP 3 (5-19)
[2018-07-23] MEDS: VALPROATE SODIUM SYRUP 250 MG/5 ML UDCUP PEG SCH ×2 (10:26→22:40)
--- NOTE | 2018-07-23 10:39 | PDOC PROGRESS REPORT ---
Subjective Progress Note for:: 07/23/18 Subjective:: Patient had period of hypothermia since last clinical evaluation. Her hemoglobin trend is downward. We are awaiting response from her family regarding blood transfusion therapy. She remain on IV Vancomycin and Zosyn. Reason For Visit: HYPOKALEMIA,METABOLIC ALKALOSIS,ADVANCED DEMENTIA Physical Exam Vital Signs: Temp Pulse Resp BP Pulse Ox 97.1 F 69 24 H 143/63 H 100 07/23/18 08:00 07/23/18 08:00 07/23/18 08:00 07/23/18 08:00 07/23/18 08:27 Intake & Output 07/22/18 07/23/18 07/24/18 06:59 06:59 06:59 Intake Total 1957 2600 250 Output Total 1125 650 Balance 832 1950 250 Weight 83.4 kg 85 kg Physical Exam: General appearance: PRESENT: no acute distress Head exam: PRESENT: atraumatic, normocephalic Eye exam: PRESENT: EOMI, PERRLA Ear exam: PRESENT: normal external ear exam Mouth exam: PRESENT: moist, other - Right parotid gland swelling with some expressed tenderness to palpation Teeth exam: PRESENT: poor dentition Respiratory exam: PRESENT: decreased breath sounds - bilateral lung bases Cardiovascular exam: PRESENT: RRR. ABSENT: diastolic murmur, rubs, systolic murmur Vascular exam: ABSENT: pallor GI/Abdominal exam: PRESENT: normal bowel sounds, other - PEG site with minimal drainage. Musculoskeletal exam: PRESENT: deformity - contracture deformity Neurological exam: PRESENT: alert Skin exam: PRESENT: dry, warm Results Laboratory Results: 07/23/18 04:22 07/23/18 04:22 07/23/18 07/23/18 07/23/18 04:22 04:22 08:07 WBC 12.9 H RBC 2.32 L Hgb 6.6 L Hct 19.7 L MCV 85 MCH 28.5 MCHC 33.5 RDW 17.6 H Plt Count 19 L* Seg Neutrophils % Not Reportable Lymphocytes % Not Reportable Monocytes % Not Reportable Eosinophils % Not Reportable Basophils % Not Reportable Absolute Neutrophils Not Reportable Absolute Lymphocytes Not Reportable Absolute Monocytes Not Reportable Absolute Eosinophils Not Reportable Absolute Basophils Not Reportable Sodium 152.7 H Potassium 4.3 Chloride 118 H Carbon Dioxide 32 H Anion Gap 3 L BUN 21 H Creatinine 0.69 Est GFR ( Amer) > 60 Est GFR (Non-Af Amer) > 60 Glucose 110 Calcium 7.4 L Blood Type B POSITIVE Antibody Screen NEGATIVE 07/18/18 21:40 Blood Blood Culture - Final Pseudomonas Aeruginosa Klebsiella Pneumoniae 07/18/18 07/18/18 07/19/18 21:50 21:50 03:31 Troponin I 0.047 0.041 NT-Pro-B Natriuret Pep [id number] H 07/19/18 09:59 Troponin I 0.031 NT-Pro-B Natriuret Pep Impressions: KUB X-Ray 07/18/18 16:40 IMPRESSION: Possible fecal impaction. Gaseous distention of the colon. The cecum remains distended but shows improvement compared to the earlier study from 07/03/[address] 07/21/18 00:00 IMPRESSION: 1. Prominent right parotid gland. 2. Asymmetrical of mucosal thickening in the right side of the pharynx. No definite concepción appendiceal abscess is appreciated. Study is limited by lack of contrast. 3. Left upper lobe pneumonia. 4. Left thyroid nodule. 5. Extensive cerebral changes. 6. Subcutaneous edema. Assessment & Plan - Diagnosis (1) Pseudomonas septicemia Is this a current diagnosis for this admission?: Yes (2) Klebsiella pneumoniae infection Is this a current diagnosis for this admission?: Yes (3) Thrombocytopenia Is this a current diagnosis for this admission?: Yes (4) Parotiditis Is this a current diagnosis for this admission?: Yes (5) Protein calorie malnutrition Qualifiers: Protein-calorie malnutrition severity: moderate Qualified Code(s): E44.0 - Moderate protein-calorie malnutrition Is this a current diagnosis for this admission?: Yes (6) Anemia due to infection Is this a current diagnosis for this admission?: Yes Plan: Patient will be transfused 2 units PRBC as soon as we cardenas able to get consent from her on record contact. - Time Time Spent with patient: 25-34 minutes Medications reviewed and adjusted accordingly: Yes Anticipated discharge: SNF Within: Other - Inpatient Certification Based on my medical assessment, after consideration of the patient's comorbidities, presenting symptoms, or acuity I expect that the services needed warrant INPATIENT care.: Yes I certify that my determination is in accordance with my understanding of Medicare's requirements for reasonable and necessary INPATIENT services [42 CFR 412.3e].: Yes Medical Necessity: Need Close Monitoring Due to Risk of Patient Decompensation, Need For IV Fluids, Need For Continuous Telemetry Monitoring, Need for IV Antibiotics, Risk of Complication if Not Cared For in Hospital Post Hospital Care: D/C or Transfer Summary - Plan Summary Plan Summary: Continue her IV antibiotic therapy. Follow up on post transfusion CBC indices. Her thrombocytopenia may be related to ongoing sepsis.
[2018-07-23] MEDS ORDERED: LACTULOSE PEG PRN (10:40)
[2018-07-23] MEDS ORDERED: FUROSEMIDE 40 MG TABLET PEG PRN (10:40)
[2018-07-23] MEDS ORDERED: LACTULOSE SYRUP 20 GM/30 ML UDCUP PEG PRN (11:09)
[2018-07-23] MEDS ORDERED: FUROSEMIDE INJ/PF 20 MG/2 ML SDV IV ONE ×2 (11:30→16:00)
[2018-07-23] MEDS: SCOPOLAMINE HYDROBROMIDE 1.5 MG PATCH.TD72 TD SCH (15:31)
[2018-07-24] MEDS: PIPERACILLIN SODIUM/TAZOBACTAM 3.375 GM in NORMAL SALINE 100 ML IV SCH ×4 (02:54→22:41)
[2018-07-24] MEDS: VANCOMYCIN HCL 1,000 MG in DEXTROSE 5%-WATER 250 ML IV SCH ×2 (06:01→17:46)
[2018-07-24 06:09] LABS: HEMATOCRIT 32.7 % (36.0-47.0); MEAN CORPUSCULAR HGB CONC 34.8 g/dL (32.0-36.0); MEAN CORPUSCULAR VOLUME 83 fl (80-97); RED BLOOD COUNT 3.92 10^6/uL (3.72-5.28); RED CELL DISTRIBUTION WIDTH 16.5 % (11.5-14.0); WHITE BLOOD COUNT 14.1 10^3/uL (4.0-10.5)
[2018-07-24 06:34] LABS: HEMOGLOBIN 11.4 g/dL (12.0-15.5)
[2018-07-24 06:37] LABS: ABSOLUTE LYMPHOCYTES# (MANUAL) 2.1 10^3/uL (0.5-4.7); BAND NEUTROPHILS % (MANUAL) 3 % (3-5); BASOPHILS % (MANUAL) 0 % (0-2); EOSINOPHILS % (MANUAL) 0 % (0-6); LYMPHOCYTES % (MANUAL) 15 % (13-45); METAMYELOCYTES % (MANUAL) 2 % (0); MONOCYTES % (MANUAL) 0 % (3-13); SEGMENTED NEUTROPHILS % (MAN) 80 % (42-78); TOTAL CELLS COUNTED 100
[2018-07-24 06:45] LABS: ANISOCYTOSIS 2+; POIKILOCYTOSIS 3+; POLYCHROMASIA SLIGHT
[2018-07-24 06:46] LABS: PLATELET COMMENT DECREASED; PLATELET LARGE PRESENT; SCHISTOCYTES SLIGHT; TARGET CELLS 3+
[2018-07-24 06:52] LABS: PLATELET COUNT 37 10^3/uL (150-450)
[2018-07-24 07:46] LABS: BLOOD UREA NITROGEN 25 mg/dL (7-20); CALCIUM 7.6 mg/dL (8.4-10.2); GLUCOSE 113 mg/dL (75-110); POTASSIUM 4.2 mmol/L (3.6-5.0)
[2018-07-24 07:52] LABS: CARBON DIOXIDE 34 mmol/L (22-30); CHLORIDE 115 mmol/L (98-107)
[2018-07-24 07:59] LABS: ANION GAP 2 (5-19)
[2018-07-24] MEDS ORDERED: GLUCAGON,HUMAN RECOMB 1 MG INJ SUBCUT PRN (08:40)
[2018-07-24] MEDS ORDERED: DEXTROSE 50%-WATER 25 GM/50 ML DISP.SYRIN IV PRN ×2 (08:40)
[2018-07-24] MEDS ORDERED: DEXTROSE 40% GEL 15 GM TUBE PO PRN ×2 (08:40)
[2018-07-24] MEDS: POLYETHYLENE GLYCOL 3350 POWDER 17 GM/1 PACKET PEG SCH (09:00)
[2018-07-24] MEDS: MULTIVITAMIN ORAL LIQUID 60 ML PEG SCH (09:00)
[2018-07-24] MEDS: VALPROATE SODIUM SYRUP 250 MG/5 ML UDCUP PEG SCH ×2 (09:37→22:46)
[2018-07-24] MEDS ORDERED: MULTIVIT MINERALS PEG SCH (10:00)
[2018-07-24] MEDS ORDERED: FERROUS GLUC PEG SCH (10:00)
[2018-07-24 18:31] LABS: VANCOMYCIN,TROUGH 30.7 ug/mL (5.0-20.0)
[2018-07-24] MEDS: DEXTROSE 5%-WATER 1000 ML 1,000 ML IV PRN (21:32)
--- NOTE | 2018-07-24 21:32 | PDOC PROGRESS REPORT ---
Subjective Progress Note for:: 07/24/18 Subjective:: Patient condition is very poor she is nonverbal ,severe septicemia/sepsis Reason For Visit: HYPOKALEMIA,METABOLIC ALKALOSIS,ADVANCED DEMENTIA Physical Exam Vital Signs: Temp Pulse Resp BP Pulse Ox 98.3 F 99 28 H 127/89 H 100 07/24/18 16:00 07/24/18 16:00 07/24/18 16:00 07/24/18 16:00 07/24/18 16:00 Intake & Output 07/23/18 07/24/18 07/25/18 06:59 06:59 06:59 Intake Total 2600 3620 700 Output Total 650 825 110 Balance 1950 2795 590 Weight 85 kg 88.8 kg Eye exam: PRESENT: PERRLA Respiratory exam: PRESENT: decreased breath sounds Cardiovascular exam: PRESENT: irregular rhythm, +S1, +S2 Neurological exam: PRESENT: altered Results Laboratory Results: 07/24/18 05:52 07/24/18 17:45 07/24/18 07/24/18 07/24/18 05:52 05:52 07:08 WBC 14.1 H RBC 3.92 Hgb 11.4 L D Hct 32.7 L MCV 83 MCH 29.0 MCHC 34.8 RDW 16.5 H Plt Count 37 L Seg Neutrophils % Not Reportable Lymphocytes % Not Reportable Monocytes % Not Reportable Eosinophils % Not Reportable Basophils % Not Reportable Absolute Neutrophils Not Reportable Absolute Lymphocytes Not Reportable Absolute Monocytes Not Reportable Absolute Eosinophils Not Reportable Absolute Basophils Not Reportable Sodium Cancelled 151.0 H Potassium Cancelled 4.2 Chloride Cancelled 115 H Carbon Dioxide Cancelled 34 H Anion Gap Cancelled 2 L BUN Cancelled 25 H Creatinine Cancelled 0.72 Est GFR ( Amer) Cancelled > 60 Est GFR (Non-Af Amer) Cancelled > 60 Glucose Cancelled 113 H Calcium Cancelled 7.6 L 07/24/18 17:45 WBC RBC Hgb Hct MCV MCH MCHC RDW Plt Count Seg Neutrophils % Lymphocytes % Monocytes % Eosinophils % Basophils % Absolute Neutrophils Absolute Lymphocytes Absolute Monocytes Absolute Eosinophils Absolute Basophils Sodium Potassium Chloride Carbon Dioxide Anion Gap BUN Creatinine 0.77 Est GFR ( Amer) > 60 Est GFR (Non-Af Amer) > 60 Glucose Calcium 07/18/18 07/18/18 07/19/18 21:50 21:50 03:31 Troponin I 0.047 0.041 NT-Pro-B Natriuret Pep 12124 H 07/19/18 09:59 Troponin I 0.031 NT-Pro-B Natriuret Pep Impressions: KUB X-Ray 07/18/18 16:40 IMPRESSION: Possible fecal impaction. Gaseous distention of the colon. The cecum remains distended but shows improvement compared to the earlier study from 07/03/[address] 07/21/18 00:00 IMPRESSION: 1. Prominent right parotid gland. 2. Asymmetrical of mucosal thickening in the right side of the pharynx. No definite concepción appendiceal abscess is appreciated. Study is limited by lack of contrast. 3. Left upper lobe pneumonia. 4. Left thyroid nodule. 5. Extensive cerebral changes. 6. Subcutaneous edema. Assessment & Plan - Diagnosis (1) Metabolic alkalosis Is this a current diagnosis for this admission?: Yes (2) Hypokalemia Is this a current diagnosis for this admission?: Yes (3) Pseudoobstruction of colon Is this a current diagnosis for this admission?: Yes (4) Gram negative septicemia Is this a current diagnosis for this admission?: Yes (5) Sepsis Qualifiers: Sepsis type: sepsis due to unspecified organism Qualified Code(s): A41.9 - Sepsis, unspecified organism Is this a current diagnosis for this admission?: Yes (6) Urinary tract infection Qualifiers: Urinary tract infection type: site unspecified Hematuria presence: without hematuria Qualified Code(s): N39.0 - Urinary tract infection, site not specified Is this a current diagnosis for this admission?: Yes (7) Pseudomonas septicemia Is this a current diagnosis for this admission?: Yes (8) Hypernatremia Is this a current diagnosis for this admission?: Yes - Plan Summary Plan Summary: Patient condition is very poor ,change IV fluid to 5% dextrose
[2018-07-25] MEDS: PIPERACILLIN SODIUM/TAZOBACTAM 3.375 GM in NORMAL SALINE 100 ML IV SCH ×4 (02:21→21:16)
[2018-07-25 06:21] LABS: HEMATOCRIT 28.4 % (36.0-47.0); HEMOGLOBIN 9.9 g/dL (12.0-15.5); MEAN CORPUSCULAR HEMOGLOBIN 29.1 pg (27.0-33.4); MEAN CORPUSCULAR HGB CONC 34.7 g/dL (32.0-36.0); MEAN CORPUSCULAR VOLUME 84 fl (80-97); RED BLOOD COUNT 3.39 10^6/uL (3.72-5.28); RED CELL DISTRIBUTION WIDTH 16.2 % (11.5-14.0); WHITE BLOOD COUNT 11.9 10^3/uL (4.0-10.5)
[2018-07-25 06:50] LABS: BLOOD UREA NITROGEN 25 mg/dL (7-20); CALCIUM 7.8 mg/dL (8.4-10.2); GLUCOSE 90 mg/dL (75-110); POTASSIUM 3.7 mmol/L (3.6-5.0)
[2018-07-25 06:56] LABS: CARBON DIOXIDE 33 mmol/L (22-30); CHLORIDE 114 mmol/L (98-107)
[2018-07-25 07:07] LABS: ANION GAP 3 (5-19)
[2018-07-25 08:14] LABS: ABSOLUTE LYMPHOCYTES# (MANUAL) 2.5 10^3/uL (0.5-4.7); ABSOLUTE NEUTROPHILS# (MANUAL) 9.4 10^3/uL (1.7-8.2); ANISOCYTOSIS 2+; BAND NEUTROPHILS % (MANUAL) 4 % (3-5); BASOPHILS % (MANUAL) 0 % (0-2); EOSINOPHILS % (MANUAL) 0 % (0-6); HYPOCHROMASIA 2+; LYMPHOCYTES % (MANUAL) 20 % (13-45); METAMYELOCYTES % (MANUAL) 2 % (0); MONOCYTES % (MANUAL) 0 % (3-13); NUCLEATED RED BLOOD CELLS 2 /100 WBC (0); OVALOCYTES SLIGHT; PLATELET COMMENT DECREASED; POIKILOCYTOSIS SLIGHT; SEGMENTED NEUTROPHILS % (MAN) 73 % (42-78); TARGET CELLS 2+; TOTAL CELLS COUNTED 100; TOXIC GRANULATION 1+
[2018-07-25] MEDS: VALPROATE SODIUM SYRUP 250 MG/5 ML UDCUP PEG SCH ×2 (09:26→21:18)
[2018-07-25] MEDS: POLYETHYLENE GLYCOL 3350 POWDER 17 GM/1 PACKET PEG SCH (09:27)
[2018-07-25] MEDS: MULTIVITAMIN ORAL LIQUID 60 ML PEG SCH (09:29)
[2018-07-25 11:22] LABS: PLATELET COUNT 28 10^3/uL (150-450)
[2018-07-25] MEDS: DEXTROSE 5%-WATER 1000 ML 1,000 ML IV PRN (17:58)
[2018-07-25 18:19] LABS: VANCOMYCIN,TROUGH 28.9 ug/mL (5.0-20.0)
--- NOTE | 2018-07-25 21:24 | PDOC PROGRESS REPORT ---
Subjective Progress Note for:: 07/25/18 Subjective:: Patient is alert but poorly responsive, with severe sepsis Reason For Visit: HYPOKALEMIA,METABOLIC ALKALOSIS,ADVANCED DEMENTIA Physical Exam Vital Signs: Temp Pulse Resp BP Pulse Ox 97.3 F 84 15 144/70 H 99 07/25/18 19:19 07/25/18 19:19 07/25/18 19:19 07/25/18 19:19 07/25/18 19:19 Intake & Output 07/24/18 07/25/18 07/26/18 06:59 06:59 06:59 Intake Total 3620 900 1200 Output Total 825 110 300 Balance 2795 790 900 Weight 88.8 kg 95.7 kg Eye exam: PRESENT: conjunctiva pale Respiratory exam: PRESENT: clear to auscultation brittni Cardiovascular exam: PRESENT: +S1, +S2 Results Laboratory Results: 07/25/18 04:59 07/25/18 04:59 07/25/18 07/25/18 04:59 04:59 WBC 11.9 H RBC 3.39 L Hgb 9.9 L Hct 28.4 L MCV 84 MCH 29.1 MCHC 34.7 RDW 16.2 H Plt Count 28 L* Seg Neutrophils % Not Reportable Lymphocytes % Not Reportable Monocytes % Not Reportable Eosinophils % Not Reportable Basophils % Not Reportable Absolute Neutrophils Not Reportable Absolute Lymphocytes Not Reportable Absolute Monocytes Not Reportable Absolute Eosinophils Not Reportable Absolute Basophils Not Reportable Sodium 150.0 H Potassium 3.7 Chloride 114 H Carbon Dioxide 33 H Anion Gap 3 L BUN 25 H Creatinine 0.91 Est GFR ( Amer) > 60 Est GFR (Non-Af Amer) > 60 Glucose 90 Calcium 7.8 L 07/18/18 07/18/18 07/19/18 21:50 21:50 03:31 Troponin I 0.047 0.041 NT-Pro-B Natriuret Pep 08637 H 07/19/18 09:59 Troponin I 0.031 NT-Pro-B Natriuret Pep Impressions: KUB X-Ray 07/18/18 16:40 IMPRESSION: Possible fecal impaction. Gaseous distention of the colon. The cecum remains distended but shows improvement compared to the earlier study from 07/03/[address] 07/21/18 00:00 IMPRESSION: 1. Prominent right parotid gland. 2. Asymmetrical of mucosal thickening in the right side of the pharynx. No definite concepción appendiceal abscess is appreciated. Study is limited by lack of contrast. 3. Left upper lobe pneumonia. 4. Left thyroid nodule. 5. Extensive cerebral changes. 6. Subcutaneous edema. Assessment & Plan - Diagnosis (1) Metabolic alkalosis Is this a current diagnosis for this admission?: Yes (2) Hypokalemia Is this a current diagnosis for this admission?: Yes (3) Pseudoobstruction of colon Is this a current diagnosis for this admission?: Yes (4) Gram negative septicemia Is this a current diagnosis for this admission?: Yes (5) Sepsis Qualifiers: Sepsis type: sepsis due to unspecified organism Qualified Code(s): A41.9 - Sepsis, unspecified organism Is this a current diagnosis for this admission?: Yes (6) Urinary tract infection Qualifiers: Urinary tract infection type: site unspecified Hematuria presence: without hematuria Qualified Code(s): N39.0 - Urinary tract infection, site not specified Is this a current diagnosis for this admission?: Yes (7) Pseudomonas septicemia Is this a current diagnosis for this admission?: Yes (8) Hypernatremia Is this a current diagnosis for this admission?: Yes
[2018-07-26] MEDS: PIPERACILLIN SODIUM/TAZOBACTAM 3.375 GM in NORMAL SALINE 100 ML IV SCH ×4 (03:23→21:41)
[2018-07-26] MEDS: VALPROATE SODIUM SYRUP 250 MG/5 ML UDCUP PEG SCH ×2 (09:44→21:41)
[2018-07-26] MEDS: MULTIVITAMIN ORAL LIQUID 60 ML PEG SCH (09:44)
[2018-07-26] MEDS: POLYETHYLENE GLYCOL 3350 POWDER 17 GM/1 PACKET PEG SCH (09:44)
[2018-07-26] MEDS: SCOPOLAMINE HYDROBROMIDE 1.5 MG PATCH.TD72 TD SCH (09:46)
[2018-07-26] MEDS: DEXTROSE 5%-WATER 1000 ML 1,000 ML IV PRN (14:25)
--- NOTE | 2018-07-26 18:38 | PDOC CONSULTATION ---
Consultation Consult Date: 07/26/18 Consult reason:: leaking peg tube History of Present Illness Admission Date/PCP: 07/18/18 19:52 ALAN ANGLIN MD History of Present Illness: PARADISE ANTUNEZ is a 77 year old female with dementia,sepsis noted leaking peg tube . Past Medical History Cardiac Medical History: Reports: Hyperlipidema, Hypertension Pulmonary Medical History: Reports: Sleep Apnea Comment Only: Tuberculosis - UNKNOWN Neurological Medical History: Reports: Seizures Endocrine Medical History: Reports: Diabetes Mellitus Type 2 GI Medical History: Reports: Gastroesophageal Reflux Disease Musculoskeltal Medical History: Reports: Arthritis Psychiatric Medical History: Reports: Dementia, Depression Hematology: Reports: Anemia Past Surgical History Past Surgical History: Reports: Other - PEG tube placement Denies: Hysterectomy Social History Smoking Status: Unknown if Ever Smoked Hx Recreational Drug Use: No Hx Prescription Drug Abuse: No - Advance Directive Resuscitation Status: Do Not Resuscitate Family History Family History: None, Reviewed & Not Pertinent Parental Family History Reviewed: Yes Children Family History Reviewed: No Sibling(s) Family History Reviewed.: No Medication/Allergy Home Medications: Valproic Acid (As Sodium Salt) [Valproic Acid] 10 ml PEG Q12 12/15/17 Acetaminophen [Tylenol Extra Strength] 1,000 mg PEG Q8HP PRN 07/03/18 Furosemide [Lasix 40 mg Tablet] 40 mg PEG Q12HP PRN 07/03/18 Hyoscyamine Sulfate [Levsin] 0.125 mg PEG ASDIR PRN 07/03/18 Lactulose [Constulose 10 gm/15 mL Oral Solution] 7.5 ml PEG HSP PRN 07/03/18 Multivit-Minerals/Ferrous Gluc [Certa Irineo Liquid] 15 ml PEG DAILY 07/03/18 Polyethylene Glycol 3350 [Miralax Powder 17 gm/Packet] 1 packet PEG DAILY Ranitidine HCl [Zantac 150 mg Tablet] 150 mg PEG BID 07/03/18 Scopolamine 1 each TD Q3D 07/03/18 Allergies/Adverse Reactions: No Known Allergies Allergy (Verified 02/20/17 23:56) Review of Systems ROS unobtainable: Due to mental status Physical Exam Vital Signs: Temp Pulse Resp BP Pulse Ox 97.4 F 74 16 148/80 H 100 07/26/18 15:17 07/26/18 15:17 07/26/18 15:17 07/26/18 15:17 07/26/18 15:17 Intake & Output 07/25/18 07/26/18 07/27/18 06:59 06:59 06:59 Intake Total 900 1395 1100 Output Total 110 460 500 Balance 790 935 600 Weight 95.7 kg 91 kg Exam: peg tube loose. peg tube pulled up to 2 cm area on skin level and phalanx pushed down to skin level. Peg tube was then irrigated and no more leak noted. Yold the nurse to make sure phalanx always snug on the skin. Results Laboratory Results: 07/25/18 04:59 07/25/18 04:59 07/18/18 07/18/18 07/19/18 21:50 21:50 03:31 Troponin I 0.047 0.041 NT-Pro-B Natriuret Pep [id number] H 07/19/18 09:59 Troponin I 0.031 NT-Pro-B Natriuret Pep Impressions: KUB X-Ray 07/18/18 16:40 IMPRESSION: Possible fecal impaction. Gaseous distention of the colon. The cecum remains distended but shows improvement compared to the earlier study from 07/03/[address] 07/21/18 00:00 IMPRESSION: 1. Prominent right parotid gland. 2. Asymmetrical of mucosal thickening in the right side of the pharynx. No definite concepción appendiceal abscess is appreciated. Study is limited by lack of contrast. 3. Left upper lobe pneumonia. 4. Left thyroid nodule. 5. Extensive cerebral changes. 6. Subcutaneous edema. Assessment & Plan - Time Time Spent: 30 to 50 Minutes - Plan Summary Plan Summary: Peg tube leak corrected by pushing phalanx snug on the skin.
--- NOTE | 2018-07-26 22:40 | PDOC PROGRESS REPORT ---
Subjective Progress Note for:: 07/26/18 Subjective:: Patient remains very sick no communication, the PEG tube was leaking, consultation obtained from surgery Reason For Visit: HYPOKALEMIA,METABOLIC ALKALOSIS,ADVANCED DEMENTIA Physical Exam Vital Signs: Temp Pulse Resp BP Pulse Ox 97.6 F 98 15 145/69 H 98 07/26/18 19:45 07/26/18 19:45 07/26/18 19:45 07/26/18 19:45 07/26/18 19:45 Intake & Output 07/25/18 07/26/18 07/27/18 06:59 06:59 06:59 Intake Total 900 1395 1200 Output Total 110 460 500 Balance 790 935 700 Weight 95.7 kg 91 kg 92.8 kg General appearance: PRESENT: thin Eye exam: PRESENT: conjunctiva pale Respiratory exam: PRESENT: rhonchi Cardiovascular exam: PRESENT: +S1, +S2 GI/Abdominal exam: PRESENT: soft Neurological exam: PRESENT: altered Results Laboratory Results: 07/25/18 04:59 07/25/18 04:59 07/18/18 07/18/18 07/19/18 21:50 21:50 03:31 Troponin I 0.047 0.041 NT-Pro-B Natriuret Pep 14634 H 07/19/18 09:59 Troponin I 0.031 NT-Pro-B Natriuret Pep Impressions: KUB X-Ray 07/18/18 16:40 IMPRESSION: Possible fecal impaction. Gaseous distention of the colon. The cecum remains distended but shows improvement compared to the earlier study from 07/03/[address] 07/21/18 00:00 IMPRESSION: 1. Prominent right parotid gland. 2. Asymmetrical of mucosal thickening in the right side of the pharynx. No definite concepción appendiceal abscess is appreciated. Study is limited by lack of contrast. 3. Left upper lobe pneumonia. 4. Left thyroid nodule. 5. Extensive cerebral changes. 6. Subcutaneous edema. Assessment & Plan - Diagnosis (1) Metabolic alkalosis Is this a current diagnosis for this admission?: Yes (2) Hypokalemia Is this a current diagnosis for this admission?: Yes (3) Pseudoobstruction of colon Is this a current diagnosis for this admission?: Yes (4) Gram negative septicemia Is this a current diagnosis for this admission?: Yes (5) Sepsis Qualifiers: Sepsis type: sepsis due to unspecified organism Qualified Code(s): A41.9 - Sepsis, unspecified organism Is this a current diagnosis for this admission?: Yes (6) Urinary tract infection Qualifiers: Urinary tract infection type: site unspecified Hematuria presence: without hematuria Qualified Code(s): N39.0 - Urinary tract infection, site not specified Is this a current diagnosis for this admission?: Yes (7) Pseudomonas septicemia Is this a current diagnosis for this admission?: Yes (8) Hypernatremia Is this a current diagnosis for this admission?: Yes - Plan Summary Plan Summary: Continue IV antibiotic, IV fluid
[2018-07-26 23:10] LABS: HEMATOCRIT 27.9 % (36.0-47.0); HEMOGLOBIN 9.2 g/dL (12.0-15.5); MEAN CORPUSCULAR HEMOGLOBIN 28.5 pg (27.0-33.4); MEAN CORPUSCULAR VOLUME 86 fl (80-97); RED BLOOD COUNT 3.24 10^6/uL (3.72-5.28); RED CELL DISTRIBUTION WIDTH 16.3 % (11.5-14.0)
[2018-07-26 23:27] LABS: ABSOLUTE LYMPHOCYTES# (MANUAL) 0.9 10^3/uL (0.5-4.7); ABSOLUTE MONOCYTES # (MANUAL) 0.8 10^3/uL (0.1-1.4); ABSOLUTE NEUTROPHILS# (MANUAL) 11.3 10^3/uL (1.7-8.2); BAND NEUTROPHILS % (MANUAL) 5 % (3-5); BASOPHILS % (MANUAL) 0 % (0-2); EOSINOPHILS % (MANUAL) 0 % (0-6); LYMPHOCYTES % (MANUAL) 7 % (13-45); MONOCYTES % (MANUAL) 6 % (3-13); NUCLEATED RED BLOOD CELLS 1 /100 WBC (0); SEGMENTED NEUTROPHILS % (MAN) 82 % (42-78); TOTAL CELLS COUNTED 100
[2018-07-26 23:29] LABS: ANISOCYTOSIS 1+; PLATELET COMMENT DECREASED; POIKILOCYTOSIS 1+; TARGET CELLS 1+
[2018-07-26 23:31] LABS: PLATELET COUNT 31 10^3/uL (150-450)
[2018-07-26 23:59] LABS: ALANINE AMINOTRANSFERASE 19 U/L (9-52); ALBUMIN 2.1 g/dL (3.5-5.0); ALKALINE PHOSPHATASE 71 U/L (38-126); ANION GAP 7 (5-19); ASPARTATE AMINO TRANSFERASE 19 U/L (14-36); BILIRUBIN,DIRECT 0.4 mg/dL (0.0-0.4); BILIRUBIN,TOTAL 0.6 mg/dL (0.2-1.3); BLOOD UREA NITROGEN 21 mg/dL (7-20); CALCIUM 7.7 mg/dL (8.4-10.2); CARBON DIOXIDE 29 mmol/L (22-30); CHLORIDE 113 mmol/L (98-107); GLUCOSE 100 mg/dL (75-110); POTASSIUM 3.2 mmol/L (3.6-5.0); SODIUM 149.4 mmol/L (137-145); TOTAL PROTEIN 5.6 g/dL (6.3-8.2)
[2018-07-27] MEDS: PIPERACILLIN SODIUM/TAZOBACTAM 3.375 GM in NORMAL SALINE 100 ML IV SCH ×4 (03:45→22:36)
[2018-07-27 07:46] LABS: HEMATOCRIT 25.3 % (36.0-47.0); HEMOGLOBIN 8.7 g/dL (12.0-15.5); MEAN CORPUSCULAR HEMOGLOBIN 29.5 pg (27.0-33.4); MEAN CORPUSCULAR HGB CONC 34.4 g/dL (32.0-36.0); MEAN CORPUSCULAR VOLUME 86 fl (80-97); RED BLOOD COUNT 2.95 10^6/uL (3.72-5.28); RED CELL DISTRIBUTION WIDTH 16.6 % (11.5-14.0); WHITE BLOOD COUNT 12.1 10^3/uL (4.0-10.5)
[2018-07-27 07:58] LABS: ALANINE AMINOTRANSFERASE 22 U/L (9-52); ALKALINE PHOSPHATASE 77 U/L (38-126); ANION GAP 7 (5-19); ASPARTATE AMINO TRANSFERASE 16 U/L (14-36); BILIRUBIN,DIRECT 0.4 mg/dL (0.0-0.4); BILIRUBIN,TOTAL 0.6 mg/dL (0.2-1.3); BLOOD UREA NITROGEN 22 mg/dL (7-20); CALCIUM 7.6 mg/dL (8.4-10.2); CARBON DIOXIDE 29 mmol/L (22-30); CHLORIDE 112 mmol/L (98-107); GLUCOSE 114 mg/dL (75-110); SODIUM 147.8 mmol/L (137-145); TOTAL PROTEIN 5.2 g/dL (6.3-8.2)
[2018-07-27 08:29] LABS: PLATELET ESTIMATE 63 10^3/uL (150-450)
[2018-07-27 08:33] LABS: ABSOLUTE LYMPHOCYTES# (MANUAL) 1.1 10^3/uL (0.5-4.7); ABSOLUTE MONOCYTES # (MANUAL) 0.1 10^3/uL (0.1-1.4); ABSOLUTE NEUTROPHILS# (MANUAL) 10.9 10^3/uL (1.7-8.2); BAND NEUTROPHILS % (MANUAL) 8 % (3-5); BASOPHILS % (MANUAL) 0 % (0-2); EOSINOPHILS % (MANUAL) 0 % (0-6); LYMPHOCYTES % (MANUAL) 8 % (13-45); MONOCYTES % (MANUAL) 1 % (3-13); SEGMENTED NEUTROPHILS % (MAN) 77 % (42-78); TOTAL CELLS COUNTED 100
[2018-07-27 08:34] LABS: METAMYELOCYTES % (MANUAL) 3 % (0); MYELOCYTES % (MANUAL) 2 % (0); TOXIC GRANULATION 2+; TOXIC VACUOLATION PRESENT
[2018-07-27 08:35] LABS: ANISOCYTOSIS 1+; HYPOCHROMASIA 1+; PLATELET COMMENT DECREASED; PLATELET LARGE PRESENT
[2018-07-27] MEDS: POTASSIUM CHLORIDE 20 MEQ/15 ML UDCUP PEG SCH ×2 (10:26→14:08)
[2018-07-27] MEDS: POLYETHYLENE GLYCOL 3350 POWDER 17 GM/1 PACKET PEG SCH (10:27)
[2018-07-27] MEDS: MULTIVITAMIN ORAL LIQUID 60 ML PEG SCH (10:28)
[2018-07-27] MEDS: VALPROATE SODIUM SYRUP 250 MG/5 ML UDCUP PEG SCH ×2 (10:28→22:36)
[2018-07-27] MEDS: DEXTROSE 5%-WATER 1000 ML 1,000 ML IV PRN (13:30)
[2018-07-27 19:19] LABS: VANCOMYCIN,TROUGH 16.9 ug/mL (5.0-20.0)
--- NOTE | 2018-07-27 21:49 | PDOC PROGRESS REPORT ---
Subjective Progress Note for:: 07/27/18 Subjective:: Patient condition remain very critical Reason For Visit: HYPOKALEMIA,METABOLIC ALKALOSIS,ADVANCED DEMENTIA Physical Exam Vital Signs: Temp Pulse Resp BP Pulse Ox 99.3 F 94 17 111/59 L 100 07/27/18 19:44 07/27/18 19:44 07/27/18 19:44 07/27/18 19:44 07/27/18 19:44 Intake & Output 07/26/18 07/27/18 07/28/18 06:59 06:59 06:59 Intake Total 1395 1400 1200 Output Total 194 015 2737 Balance 935 690 200 Weight 91 kg 92.8 kg Respiratory exam: PRESENT: rhonchi Cardiovascular exam: PRESENT: +S1, +S2 GI/Abdominal exam: PRESENT: soft Neurological exam: PRESENT: altered Results Laboratory Results: 07/27/18 07:18 07/27/18 07:18 07/26/18 07/26/18 07/26/18 22:53 22:53 23:25 WBC 13.0 H RBC 3.24 L Hgb 9.2 L Hct 27.9 L MCV 86 MCH 28.5 MCHC 33.0 RDW 16.3 H Plt Count 31 L Seg Neutrophils % Not Reportable Lymphocytes % Not Reportable Monocytes % Not Reportable Eosinophils % Not Reportable Basophils % Not Reportable Absolute Neutrophils Not Reportable Absolute Lymphocytes Not Reportable Absolute Monocytes Not Reportable Absolute Eosinophils Not Reportable Absolute Basophils Not Reportable Sodium Cancelled 149.4 H Potassium Cancelled 3.2 L Chloride Cancelled 113 H Carbon Dioxide Cancelled 29 Anion Gap Cancelled 7 BUN Cancelled 21 H Creatinine Cancelled 0.95 Est GFR ( Amer) Cancelled > 60 Est GFR (Non-Af Amer) Cancelled 57 L Glucose Cancelled 100 Calcium Cancelled 7.7 L Total Bilirubin Cancelled 0.6 AST Cancelled 19 ALT Cancelled 19 Alkaline Phosphatase Cancelled 71 Total Protein Cancelled 5.6 L Albumin Cancelled 2.1 L 07/27/18 07/27/18 07:18 07:18 WBC 12.1 H RBC 2.95 L Hgb 8.7 L Hct 25.3 L MCV 86 MCH 29.5 MCHC 34.4 RDW 16.6 H Plt Count Seg Neutrophils % Not Reportable Lymphocytes % Not Reportable Monocytes % Not Reportable Eosinophils % Not Reportable Basophils % Not Reportable Absolute Neutrophils Not Reportable Absolute Lymphocytes Not Reportable Absolute Monocytes Not Reportable Absolute Eosinophils Not Reportable Absolute Basophils Not Reportable Sodium 147.8 H Potassium 3.0 L* Chloride 112 H Carbon Dioxide 29 Anion Gap 7 BUN 22 H Creatinine 0.86 Est GFR ( Amer) > 60 Est GFR (Non-Af Amer) > 60 Glucose 114 H Calcium 7.6 L Total Bilirubin 0.6 AST 16 ALT 22 Alkaline Phosphatase 77 Total Protein 5.2 L Albumin 2.0 L 07/18/18 07/18/18 07/19/18 21:50 21:50 03:31 Troponin I 0.047 0.041 NT-Pro-B Natriuret Pep [id number] H 07/19/18 09:59 Troponin I 0.031 NT-Pro-B Natriuret Pep Impressions: KUB X-Ray 07/18/18 16:40 IMPRESSION: Possible fecal impaction. Gaseous distention of the colon. The cecum remains distended but shows improvement compared to the earlier study from 07/03/[address] 07/21/18 00:00 IMPRESSION: 1. Prominent right parotid gland. 2. Asymmetrical of mucosal thickening in the right side of the pharynx. No definite concepción appendiceal abscess is appreciated. Study is limited by lack of contrast. 3. Left upper lobe pneumonia. 4. Left thyroid nodule. 5. Extensive cerebral changes. 6. Subcutaneous edema. Assessment & Plan - Diagnosis (1) Metabolic alkalosis Is this a current diagnosis for this admission?: Yes (2) Hypokalemia Is this a current diagnosis for this admission?: Yes (3) Pseudoobstruction of colon Is this a current diagnosis for this admission?: Yes (4) Gram negative septicemia Is this a current diagnosis for this admission?: Yes (5) Sepsis Qualifiers: Sepsis type: sepsis due to unspecified organism Qualified Code(s): A41.9 - Sepsis, unspecified organism Is this a current diagnosis for this admission?: Yes (6) Urinary tract infection Qualifiers: Urinary tract infection type: site unspecified Hematuria presence: without hematuria Qualified Code(s): N39.0 - Urinary tract infection, site not specified Is this a current diagnosis for this admission?: Yes (7) Pseudomonas septicemia Is this a current diagnosis for this admission?: Yes (8) Hypernatremia Is this a current diagnosis for this admission?: Yes - Plan Summary Plan Summary: Patient condition is poor continue present treatment
[2018-07-28] MEDS: PIPERACILLIN SODIUM/TAZOBACTAM 3.375 GM in NORMAL SALINE 100 ML IV SCH ×4 (03:59→21:48)
[2018-07-28] MEDS ORDERED: VANCOMYCIN HCL INJ 1000 MG VIAL ONE (06:01)
[2018-07-28] MEDS: VANCOMYCIN HCL 1,000 MG in DEXTROSE 5%-WATER 250 ML IV SCH (06:47)
[2018-07-28 07:57] LABS: ALANINE AMINOTRANSFERASE 19 U/L (9-52); ALBUMIN 1.8 g/dL (3.5-5.0); ALKALINE PHOSPHATASE 89 U/L (38-126); ANION GAP 5 (5-19); ASPARTATE AMINO TRANSFERASE 13 U/L (14-36); BILIRUBIN,DIRECT 0.3 mg/dL (0.0-0.4); BILIRUBIN,TOTAL 0.4 mg/dL (0.2-1.3); BLOOD UREA NITROGEN 23 mg/dL (7-20); CALCIUM 7.5 mg/dL (8.4-10.2); CARBON DIOXIDE 29 mmol/L (22-30); CHLORIDE 112 mmol/L (98-107); GLUCOSE 137 mg/dL (75-110); POTASSIUM 3.8 mmol/L (3.6-5.0); SODIUM 146.2 mmol/L (137-145); TOTAL PROTEIN 4.8 g/dL (6.3-8.2)
--- NOTE | 2018-07-28 09:22 | Progress Note ---
Provider Note Provider Note: ID Consult Note Asked to review patient's chart by pharmacy. Pt not seen or examined. Reviewed provider notes, imaging reports, labs. Ms. Granger is a 77 year old female skilled nursing resident who has advanced dementia, contractures, PEG tube, hx of pseudo-obstruction of the bowel. Pt was sent to [facility] ED on 07/18/18 because SNF staff noticed blood around the patient's feeding tube. Pt is unable to supply any history. She was found to have rhonchi on lung exam and abdominal distention with hypertympanitic abdomen. Admission labs included normal WBC count, thrombocytopenia, hypokalemia, BNP 57335, elevated bilirubin (direct), and metabolic alkalosis. Pt was admitted with suspected sepsis due to UTI. U/A on 07/18 showed trace leukocyte esterase and 10 WBCs. Rocephin was started in the ED. UCx grew 80-90k cfu of Klebsiella pneumoniae and also 80-90k Pseudomonas aeruginosa. Imaging included KUB that was read as showing large amounts of stool and gas throughout the abdomen. WBC jah to 20 and 26k on 07/20 and 07/21. On 07/21, CT neck without contrast was performed for prominent parotid gland enlargement that was read as showing R parotid gland prominence and pharyngeal mucosal thickening on the R without abscess and incidentally also evidence of JULI infiltrate. Blood cultures obtained on admission eventually also were identified as growing Klebsiella pneumoniae and Pseudomonas aeruginosa from one blood culture bottle in one set and Pseudomonas aeruginosa from one blood culture bottle in the other set. Based on blood culture and cT scan results Rocephin was changed to Zosyn and empirically also vancomycin on 07/22. Pt has had no fever but some low temperatures recorded on 07/22, 07/23, 07/24 and 07/25. She continues on 2 L O2. Notes from staff describe pt with generalized edema, distended abdomen, needing Silvia hugger for normothermia, "wet & coarse" lung sounds. Labs have most recently included WBC count in the 12-13k range, continued thrombocytopenia, toxic granulation. Today is day 7 of Zosyn and IV vancomycin. Severe sepsis due to polymicrobial gram negative bacillary bacteremia - Bacteremia with Pseudomonas aeruginosa and Klebsiella pneumoniae - Source appears to be the urine based on urine culture with same organisms. - Zosyn is effective against both the Klebsiella and Pseudomonas isolates based on susceptibility results. Consider further imaging of abdomen to evaluate for any complications related to upper tract infection if pt worsening. No clear advantage to switch to cefepime rather than Zosyn, particularly if acute suppurative parotitis is als being considered. - Today is day 7 of Zosyn. In absence of further complications, plan for completion of 14 days of Zosyn or equivalent (e.g. Cipro if PO/per tube step down option is desired when pt improves - would need to hold feeds and any polyvalent cations including multivitamins around administration). R parotid gland enlargment - Addition of vancomycin to Zosyn may be due to suspicion of acute suppurative parotitis, if patient has tender, hot, erythematous swelling overlying the R parotid gland, corresponding to the CT scan findings. Staph aureus is a common pathogen in this setting. If no MRSA is present, vancomycin may not be needed for this indication - would be addressed by Zosyn. If any pus is expressible from Stensen's duct, culture could be sent, asking the Micro lab to specifically look for MRSA. However, considering that the patient has already received 6 days of vancomycin at this point, I doubt that this would actually yield convincing information if it is negative. - Usually 10-14 days treatment adequate JULI infiltrate - Etiology unclear, incidentally noted on CT neck, stable O2 requirement, no sputum, on vancomycin and Zosyn empirically, difficult to de-escalate at this point, as noted above. If typical bacterial pneumonia, treatment course will be subsumed by that for the above problems. Gelacio Kearney MD [facility] Infectious Diseases pager [phone]
[2018-07-28] MEDS: VALPROATE SODIUM SYRUP 250 MG/5 ML UDCUP PEG SCH ×2 (09:34→22:51)
[2018-07-28] MEDS: MULTIVITAMIN ORAL LIQUID 60 ML PEG SCH (09:34)
[2018-07-28] MEDS: POLYETHYLENE GLYCOL 3350 POWDER 17 GM/1 PACKET PEG SCH (09:35)
[2018-07-28 10:08] LABS: ABSOLUTE MONOCYTES (AUTO) 1.1 10^3/uL (0.1-1.4); ABSOLUTE NEUT (AUTO) 14.4 10^3/uL (1.7-8.2); BASOPHILS % (AUTO) 0.3 % (0-2); EOSINOPHILS % (AUTO) 0.2 % (0-6); HEMATOCRIT 20.1 % (36.0-47.0); LYMPHOCYTES % (AUTO) 11.4 % (13-45); MEAN CORPUSCULAR HEMOGLOBIN 28.6 pg (27.0-33.4); MEAN CORPUSCULAR HGB CONC 33.5 g/dL (32.0-36.0); MEAN CORPUSCULAR VOLUME 86 fl (80-97); RED BLOOD COUNT 2.35 10^6/uL (3.72-5.28); RED CELL DISTRIBUTION WIDTH 15.7 % (11.5-14.0); SEGMENTED NEUTROPHILS % (AUTO) 82.1 % (42-78); TOTAL CELLS COUNTED % (AUTO) 100 %; WHITE BLOOD COUNT 17.5 10^3/uL (4.0-10.5)
[2018-07-28 11:00] LABS: PLATELET ESTIMATE 54 10^3/uL (150-450)
[2018-07-28 11:02] LABS: HEMOGLOBIN 6.7 g/dL (12.0-15.5)
[2018-07-28 11:22] LABS: PATH REVIEW PATHOLOGIST REVIEWED
[2018-07-28] MEDS ORDERED: GLUCAGON,HUMAN RECOMB 1 MG INJ IM PRN ×2 (18:05→19:30)
[2018-07-28] MEDS ORDERED: DEXTROSE 40% GEL 15 GM TUBE PO PRN ×2 (18:05→19:30)
[2018-07-28] MEDS ORDERED: DEXTROSE 50%-WATER SYRINGE 12.5 GM/25 ML DOSE IV PRN ×2 (18:05→19:30)
[2018-07-28] MEDS ORDERED: DEXTROSE 40% GEL 15 GM TUBE X 2 PO PRN ×2 (18:05→19:30)
[2018-07-28] MEDS ORDERED: DEXTROSE 50%-WATER SYRINGE 25 GM/50 ML DOSE IV PRN ×2 (18:05→19:30)
--- NOTE | 2018-07-28 20:09 | PDOC PROGRESS REPORT ---
Subjective Progress Note for:: 07/28/18 Subjective:: Patient is alert but poorly responsive, with severe sepsis Reason For Visit: HYPOKALEMIA,METABOLIC ALKALOSIS,ADVANCED DEMENTIA Physical Exam Vital Signs: Temp Pulse Resp BP Pulse Ox 97.7 F 90 20 131/65 H 100 07/28/18 18:45 07/28/18 18:45 07/28/18 18:45 07/28/18 18:45 07/28/18 18:45 Intake & Output 07/27/18 07/28/18 07/29/18 06:59 06:59 06:59 Intake Total 1400 1400 1500 Output Total 710 1200 253 Balance 054 041 1575 Weight 92.8 kg 90.4 kg Respiratory exam: PRESENT: clear to auscultation brittni Cardiovascular exam: PRESENT: +S1, +S2 GI/Abdominal exam: PRESENT: soft Results Laboratory Results: 07/28/18 09:35 07/28/18 07:15 07/28/18 07/28/18 07/28/18 07:15 07:15 09:35 WBC Cancelled 17.5 H RBC Cancelled 2.35 L Hgb Cancelled 6.7 L Hct Cancelled 20.1 L MCV Cancelled 86 MCH Cancelled 28.6 MCHC Cancelled 33.5 RDW Cancelled 15.7 H Plt Count Cancelled Seg Neutrophils % Cancelled 82.1 H Lymphocytes % Cancelled 11.4 L Monocytes % Cancelled 6.0 Eosinophils % Cancelled 0.2 Basophils % Cancelled 0.3 Absolute Neutrophils Cancelled 14.4 H Absolute Lymphocytes Cancelled 2.0 Absolute Monocytes Cancelled 1.1 Absolute Eosinophils Cancelled 0.0 Absolute Basophils Cancelled 0.0 Sodium 146.2 H Potassium 3.8 Chloride 112 H Carbon Dioxide 29 Anion Gap 5 BUN 23 H Creatinine 0.94 Est GFR ( Amer) > 60 Est GFR (Non-Af Amer) 58 L Glucose 137 H Calcium 7.5 L Total Bilirubin 0.4 AST 13 L ALT 19 Alkaline Phosphatase 89 Total Protein 4.8 L Albumin 1.8 L Blood Type Antibody Screen 07/28/18 12:40 WBC RBC Hgb Hct MCV MCH MCHC RDW Plt Count Seg Neutrophils % Lymphocytes % Monocytes % Eosinophils % Basophils % Absolute Neutrophils Absolute Lymphocytes Absolute Monocytes Absolute Eosinophils Absolute Basophils Sodium Potassium Chloride Carbon Dioxide Anion Gap BUN Creatinine Est GFR ( Amer) Est GFR (Non-Af Amer) Glucose Calcium Total Bilirubin AST ALT Alkaline Phosphatase Total Protein Albumin Blood Type B POSITIVE Antibody Screen NEGATIVE 07/18/18 07/18/18 07/19/18 21:50 21:50 03:31 Troponin I 0.047 0.041 NT-Pro-B Natriuret Pep [id number] H 07/19/18 09:59 Troponin I 0.031 NT-Pro-B Natriuret Pep Impressions: KUB X-Ray 07/18/18 16:40 IMPRESSION: Possible fecal impaction. Gaseous distention of the colon. The cecum remains distended but shows improvement compared to the earlier study from 07/03/[address] 07/21/18 00:00 IMPRESSION: 1. Prominent right parotid gland. 2. Asymmetrical of mucosal thickening in the right side of the pharynx. No definite concepción appendiceal abscess is appreciated. Study is limited by lack of contrast. 3. Left upper lobe pneumonia. 4. Left thyroid nodule. 5. Extensive cerebral changes. 6. Subcutaneous edema. Assessment & Plan - Diagnosis (1) Metabolic alkalosis Is this a current diagnosis for this admission?: Yes (2) Hypokalemia Is this a current diagnosis for this admission?: Yes (3) Pseudoobstruction of colon Is this a current diagnosis for this admission?: Yes (4) Gram negative septicemia Is this a current diagnosis for this admission?: Yes (5) Sepsis Qualifiers: Sepsis type: sepsis due to unspecified organism Qualified Code(s): A41.9 - Sepsis, unspecified organism Is this a current diagnosis for this admission?: Yes (6) Urinary tract infection Qualifiers: Urinary tract infection type: site unspecified Hematuria presence: without hematuria Qualified Code(s): N39.0 - Urinary tract infection, site not specified Is this a current diagnosis for this admission?: Yes (7) Pseudomonas septicemia Is this a current diagnosis for this admission?: Yes (8) Hypernatremia Is this a current diagnosis for this admission?: Yes - Plan Summary Plan Summary: Continue treatment
[2018-07-29] MEDS ORDERED: INSULIN LISPRO 100 UNIT/ML 3 ML VIAL SUBCUT PRN
[2018-07-29] MEDS ORDERED: INSULIN LISPRO 100 UNIT/ML 3 ML VIAL SUBCUT SCH
[2018-07-29] MEDS: PIPERACILLIN SODIUM/TAZOBACTAM 3.375 GM in NORMAL SALINE 100 ML IV SCH ×2 (00:04→05:45)
--- NOTE | 2018-07-29 07:01 | OPERATIVE REPORT E ---
Operative Report NAME: PARADISE ANTUNEZ : 1940 AGE: 77Y DATE OF SURGERY: 08/18/2018 ROOM: 407 PREOPERATIVE DIAGNOSIS: Poor veins for IV access and needed blood transfusion. POSTOPERATIVE DIAGNOSIS: Poor veins for IV access and needed blood transfusion. PROCEDURE: Placement of left subclavian triple lumen catheter. SURGEON: RAMESH BEAR M.D. ANESTHESIA: Local. INDICATION: This 77-year-old female needed blood transfusion. She does not have any more peripheral veins available for IV access. DESCRIPTION OF PROCEDURE: The patient was placed in the Trendelenburg position and the left clavicular neck areas were then prepped and draped in the usual sterile fashion. The left subclavian vein was punctured after local anesthesia infiltrated at the left infraclavicular area. The guidewire was then passed through the needle towards the area of the superior vena cava. The needle was removed and the insertion site was then dilated. A triple lumen catheter was inserted through the guidewire to a distance of about 17 cm. All the 3 ports were then irrigated and aspirated blood easily. The catheter was then anchored to the skin with 3-0 silk and a Biopatch placed at the insertion site. A transparent dressing was then placed over the Biopatch and catheter. The patient tolerated the procedure well. Chest x-ray will be obtained for placement and rule out any pneumothorax. DICTATING PHYSICIAN: RAMESH BEAR M.D. [id number] PHY#: [id number] ID: [id number] JOB#: [id number] ACCT: [id number] cc:RAMESH BEAR M.D. >
[2018-07-29 07:07] LABS: HEMATOCRIT 27.6 % (36.0-47.0); MEAN CORPUSCULAR HEMOGLOBIN 29.6 pg (27.0-33.4); MEAN CORPUSCULAR HGB CONC 34.1 g/dL (32.0-36.0); MEAN CORPUSCULAR VOLUME 87 fl (80-97); RED BLOOD COUNT 3.18 10^6/uL (3.72-5.28); RED CELL DISTRIBUTION WIDTH 15.5 % (11.5-14.0); WHITE BLOOD COUNT 22.4 10^3/uL (4.0-10.5)
[2018-07-29 07:10] LABS: HEMOGLOBIN 9.4 g/dL (12.0-15.5); PLATELET COUNT 61 10^3/uL (150-450)
[2018-07-29 07:21] LABS: ALANINE AMINOTRANSFERASE 21 U/L (9-52); ALBUMIN 1.9 g/dL (3.5-5.0); ALKALINE PHOSPHATASE 112 U/L (38-126); ASPARTATE AMINO TRANSFERASE 15 U/L (14-36); BILIRUBIN,DIRECT 0.4 mg/dL (0.0-0.4); BILIRUBIN,TOTAL 0.4 mg/dL (0.2-1.3); BLOOD UREA NITROGEN 27 mg/dL (7-20); CALCIUM 7.7 mg/dL (8.4-10.2); GLUCOSE 125 mg/dL (75-110); POTASSIUM 3.4 mmol/L (3.6-5.0); TOTAL PROTEIN 5.1 g/dL (6.3-8.2)
[2018-07-29 07:27] LABS: ANION GAP 5 (5-19); CARBON DIOXIDE 30 mmol/L (22-30); CHLORIDE 111 mmol/L (98-107); SODIUM 146.3 mmol/L (137-145)
[2018-07-29 07:34] LABS: ABSOLUTE LYMPHOCYTES# (MANUAL) 1.8 10^3/uL (0.5-4.7); ABSOLUTE MONOCYTES # (MANUAL) 0.4 10^3/uL (0.1-1.4); ABSOLUTE NEUTROPHILS# (MANUAL) 20.2 10^3/uL (1.7-8.2); BAND NEUTROPHILS % (MANUAL) 7 % (3-5); BASOPHILS % (MANUAL) 0 % (0-2); EOSINOPHILS % (MANUAL) 0 % (0-6); LYMPHOCYTES % (MANUAL) 8 % (13-45); MONOCYTES % (MANUAL) 2 % (3-13); MYELOCYTES % (MANUAL) 1 % (0); SEGMENTED NEUTROPHILS % (MAN) 82 % (42-78); TOTAL CELLS COUNTED 100
[2018-07-29 07:38] LABS: ANISOCYTOSIS SLIGHT; PLATELET COMMENT DECREASED; PLATELET LARGE PRESENT; TOXIC GRANULATION 1+; TOXIC VACUOLATION PRESENT
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
[2018-07-29] MEDS ORDERED: PIPERACILLIN SODIUM/TAZOBACTAM 3.375 GM in NORMAL SALINE 100 ML IV SCH (09:30)
[2018-07-29] MEDS: SCOPOLAMINE HYDROBROMIDE 1.5 MG PATCH.TD72 TD SCH (11:16)
[2018-07-29] MEDS: VALPROATE SODIUM SYRUP 250 MG/5 ML UDCUP PEG SCH ×2 (11:16→22:46)
[2018-07-29] MEDS: POLYETHYLENE GLYCOL 3350 POWDER 17 GM/1 PACKET PEG SCH (11:16)
[2018-07-29] MEDS: MULTIVITAMIN ORAL LIQUID 60 ML PEG SCH (11:17)
--- NOTE | 2018-07-29 15:17 | PDOC PROGRESS REPORT ---
Subjective Progress Note for:: 07/29/18 Subjective:: Patient's condition remains very poor, nonverbal persistent leukocytosis, thrombocytopenia Reason For Visit: HYPOKALEMIA,METABOLIC ALKALOSIS,ADVANCED DEMENTIA Physical Exam Vital Signs: Temp Pulse Resp BP Pulse Ox 97.3 F 92 20 157/89 H 99 07/29/18 00:00 07/29/18 13:16 07/29/18 13:16 07/29/18 13:16 07/29/18 13:16 Intake & Output 07/28/18 07/29/18 07/30/18 06:59 06:59 06:59 Intake Total 1400 2030 Output Total 1200 528 500 Balance 200 1502 -500 Weight 90.4 kg 98.5 kg General appearance: PRESENT: no acute distress Eye exam: PRESENT: PERRLA Respiratory exam: PRESENT: rhonchi Cardiovascular exam: PRESENT: +S1, +S2 GI/Abdominal exam: PRESENT: soft Neurological exam: PRESENT: alert Results Laboratory Results: 07/29/18 06:50 07/29/18 06:50 07/28/18 07/29/18 07/29/18 12:40 06:50 06:50 WBC 22.4 H RBC 3.18 L Hgb 9.4 L D Hct 27.6 L MCV 87 MCH 29.6 MCHC 34.1 RDW 15.5 H Plt Count 61 L Seg Neutrophils % Not Reportable Lymphocytes % Not Reportable Monocytes % Not Reportable Eosinophils % Not Reportable Basophils % Not Reportable Absolute Neutrophils Not Reportable Absolute Lymphocytes Not Reportable Absolute Monocytes Not Reportable Absolute Eosinophils Not Reportable Absolute Basophils Not Reportable Sodium 146.3 H Potassium 3.4 L Chloride 111 H Carbon Dioxide 30 Anion Gap 5 BUN 27 H Creatinine 0.87 Est GFR ( Amer) > 60 Est GFR (Non-Af Amer) > 60 Glucose 125 H Calcium 7.7 L Total Bilirubin 0.4 AST 15 ALT 21 Alkaline Phosphatase 112 Total Protein 5.1 L Albumin 1.9 L Blood Type B POSITIVE Antibody Screen NEGATIVE 07/18/18 07/18/18 07/19/18 21:50 21:50 03:31 Troponin I 0.047 0.041 NT-Pro-B Natriuret Pep [id number] H 07/19/18 09:59 Troponin I 0.031 NT-Pro-B Natriuret Pep Impressions: KUB X-Ray 07/18/18 16:40 IMPRESSION: Possible fecal impaction. Gaseous distention of the colon. The cecum remains distended but shows improvement compared to the earlier study from 07/03/[address] 07/21/18 00:00 IMPRESSION: 1. Prominent right parotid gland. 2. Asymmetrical of mucosal thickening in the right side of the pharynx. No definite concepción appendiceal abscess is appreciated. Study is limited by lack of contrast. 3. Left upper lobe pneumonia. 4. Left thyroid nodule. 5. Extensive cerebral changes. 6. Subcutaneous edema. Chest X-Ray 07/29/18 06:25 IMPRESSION: Findings suggestive of pulmonary vascular congestion accentuated by expiratory technique. Assessment & Plan - Diagnosis (1) Metabolic alkalosis Is this a current diagnosis for this admission?: Yes (2) Hypokalemia Is this a current diagnosis for this admission?: Yes (3) Pseudoobstruction of colon Is this a current diagnosis for this admission?: Yes (4) Gram negative septicemia Is this a current diagnosis for this admission?: Yes (5) Sepsis Qualifiers: Sepsis type: sepsis due to unspecified organism Qualified Code(s): A41.9 - Sepsis, unspecified organism Is this a current diagnosis for this admission?: Yes Plan: Continue IV antibiotic (6) Urinary tract infection Qualifiers: Urinary tract infection type: site unspecified Hematuria presence: without hematuria Qualified Code(s): N39.0 - Urinary tract infection, site not specified Is this a current diagnosis for this admission?: Yes (7) Pseudomonas septicemia Is this a current diagnosis for this admission?: Yes (8) Hypernatremia Is this a current diagnosis for this admission?: Yes Plan: Improved serum sodium
[2018-07-29] MEDS ORDERED: DEXTROSE 5%-NORMAL SALINE 1,000 ML IV PRN (15:52)
[2018-07-30] MEDS: POLYETHYLENE GLYCOL 3350 POWDER 17 GM/1 PACKET PEG SCH (10:21)
[2018-07-30] MEDS: MULTIVITAMIN ORAL LIQUID 60 ML PEG SCH (10:21)
[2018-07-30] MEDS: VALPROATE SODIUM SYRUP 250 MG/5 ML UDCUP PEG SCH (10:22)
[2018-07-30 12:18] VITALS: BP 135/64
[2018-07-30] MEDS ORDERED: MORPHINE SULFATE 10 MG/ML INJ IV PRN (13:00)
--- NOTE | 2018-07-30 16:24 | PDOC PROGRESS REPORT ---
Subjective Progress Note for:: 07/30/18 Subjective:: Patient's condition remains extremely poor, we spoke to the POA about comfort care, the POA is in agreement with the plan of care to transition to comfort care Reason For Visit: HYPOKALEMIA,METABOLIC ALKALOSIS,ADVANCED DEMENTIA Physical Exam Vital Signs: Temp Pulse Resp BP Pulse Ox 95.1 F L 100 36 H 135/64 H 98 07/30/18 12:00 07/30/18 12:00 07/30/18 12:00 07/30/18 12:00 07/30/18 12:00 Intake & Output 07/29/18 07/30/18 07/31/18 06:59 06:59 06:59 Intake Total 2030 100 Output Total 528 1300 175 Balance 1502 -1200 -175 Weight 98.5 kg 97.2 kg General appearance: PRESENT: no acute distress Eye exam: PRESENT: PERRLA Respiratory exam: PRESENT: crackles, rhonchi Results Laboratory Results: 07/29/18 06:50 07/29/18 06:50 07/18/18 07/18/18 07/19/18 21:50 21:50 03:31 Troponin I 0.047 0.041 NT-Pro-B Natriuret Pep [id number] H 07/19/18 09:59 Troponin I 0.031 NT-Pro-B Natriuret Pep Impressions: KUB X-Ray 07/18/18 16:40 IMPRESSION: Possible fecal impaction. Gaseous distention of the colon. The cecum remains distended but shows improvement compared to the earlier study from 07/03/[address] 07/21/18 00:00 IMPRESSION: 1. Prominent right parotid gland. 2. Asymmetrical of mucosal thickening in the right side of the pharynx. No definite concepción appendiceal abscess is appreciated. Study is limited by lack of contrast. 3. Left upper lobe pneumonia. 4. Left thyroid nodule. 5. Extensive cerebral changes. 6. Subcutaneous edema. Chest X-Ray 07/29/18 06:25 IMPRESSION: Findings suggestive of pulmonary vascular congestion accentuated by expiratory technique. Assessment & Plan - Diagnosis (1) Pseudomonas septicemia Is this a current diagnosis for this admission?: Yes (2) Metabolic alkalosis Is this a current diagnosis for this admission?: Yes (3) Hypokalemia Is this a current diagnosis for this admission?: Yes (4) Pseudoobstruction of colon Is this a current diagnosis for this admission?: Yes (5) Gram negative septicemia Is this a current diagnosis for this admission?: Yes (6) Sepsis Qualifiers: Sepsis type: sepsis due to unspecified organism Qualified Code(s): A41.9 - Sepsis, unspecified organism Is this a current diagnosis for this admission?: Yes (7) Urinary tract infection Qualifiers: Urinary tract infection type: site unspecified Hematuria presence: without hematuria Qualified Code(s): N39.0 - Urinary tract infection, site not specified Is this a current diagnosis for this admission?: Yes (8) Hypernatremia Is this a current diagnosis for this admission?: Yes - Plan Summary Plan Summary: Transition care to comfort care
[2018-07-31] MEDS ORDERED: VANCOMYCIN HCL 1,000 MG in DEXTROSE 5%-WATER 250 ML IV SCH (10:00)
--- NOTE | 2018-07-31 20:44 | PDOC PROGRESS REPORT ---
Subjective Progress Note for:: 07/31/18 Subjective:: Patient presently comfort care, may transfer to [place] [facility] Reason For Visit: HYPOKALEMIA,METABOLIC ALKALOSIS,ADVANCED DEMENTIA Physical Exam Vital Signs: Temp Pulse Resp BP Pulse Ox 95.1 F L 100 36 H 135/64 H 98 07/30/18 12:00 07/30/18 12:00 07/30/18 12:00 07/30/18 12:00 07/30/18 12:00 Intake & Output 07/30/18 07/31/18 08/01/18 06:59 06:59 06:59 Intake Total 100 0 0 Output Total 1300 625 150 Balance -1200 -625 -150 Weight 97.2 kg 97.2 kg Results Laboratory Results: 07/29/18 06:50 07/29/18 06:50 07/18/18 07/18/18 07/19/18 21:50 21:50 03:31 Troponin I 0.047 0.041 NT-Pro-B Natriuret Pep [id number] H 07/19/18 09:59 Troponin I 0.031 NT-Pro-B Natriuret Pep Impressions: KUB X-Ray 07/18/18 16:40 IMPRESSION: Possible fecal impaction. Gaseous distention of the colon. The cecum remains distended but shows improvement compared to the earlier study from 07/03/[address] 07/21/18 00:00 IMPRESSION: 1. Prominent right parotid gland. 2. Asymmetrical of mucosal thickening in the right side of the pharynx. No definite concepción appendiceal abscess is appreciated. Study is limited by lack of contrast. 3. Left upper lobe pneumonia. 4. Left thyroid nodule. 5. Extensive cerebral changes. 6. Subcutaneous edema. Chest X-Ray 07/29/18 06:25 IMPRESSION: Findings suggestive of pulmonary vascular congestion accentuated by expiratory technique. Assessment & Plan - Diagnosis (1) Pseudomonas septicemia Is this a current diagnosis for this admission?: Yes (2) Metabolic alkalosis Is this a current diagnosis for this admission?: Yes (3) Hypokalemia Is this a current diagnosis for this admission?: Yes (4) Pseudoobstruction of colon Is this a current diagnosis for this admission?: Yes (5) Gram negative septicemia Is this a current diagnosis for this admission?: Yes (6) Sepsis Qualifiers: Sepsis type: sepsis due to unspecified organism Qualified Code(s): A41.9 - Sepsis, unspecified organism Is this a current diagnosis for this admission?: Yes (7) Urinary tract infection Qualifiers: Urinary tract infection type: site unspecified Hematuria presence: without hematuria Qualified Code(s): N39.0 - Urinary tract infection, site not specified Is this a current diagnosis for this admission?: Yes (8) Hypernatremia Is this a current diagnosis for this admission?: Yes
--- NOTE | 2018-08-01 21:28 | PDOC PROGRESS REPORT ---
Subjective Progress Note for:: 08/01/18 Subjective:: Patient presently comfort care, may transfer to long term Reason For Visit: HYPOKALEMIA,METABOLIC ALKALOSIS,ADVANCED DEMENTIA Physical Exam Vital Signs: Temp Pulse Resp BP Pulse Ox 95.1 F L 100 36 H 135/64 H 98 07/30/18 12:00 07/30/18 12:00 07/30/18 12:00 07/30/18 12:00 07/30/18 12:00 Intake & Output 07/31/18 08/01/18 08/02/18 06:59 06:59 06:59 Intake Total 0 0 Output Total 625 300 350 Balance -625 -300 -350 Weight 97.2 kg 98.3 kg Results Laboratory Results: 07/29/18 06:50 07/29/18 06:50 07/18/18 07/18/18 07/19/18 21:50 21:50 03:31 Troponin I 0.047 0.041 NT-Pro-B Natriuret Pep 83321 H 07/19/18 09:59 Troponin I 0.031 NT-Pro-B Natriuret Pep Impressions: KUB X-Ray 07/18/18 16:40 IMPRESSION: Possible fecal impaction. Gaseous distention of the colon. The cecum remains distended but shows improvement compared to the earlier study from 07/03/[address] 07/21/18 00:00 IMPRESSION: 1. Prominent right parotid gland. 2. Asymmetrical of mucosal thickening in the right side of the pharynx. No definite concepción appendiceal abscess is appreciated. Study is limited by lack of contrast. 3. Left upper lobe pneumonia. 4. Left thyroid nodule. 5. Extensive cerebral changes. 6. Subcutaneous edema. Chest X-Ray 07/29/18 06:25 IMPRESSION: Findings suggestive of pulmonary vascular congestion accentuated by expiratory technique. Assessment & Plan - Diagnosis (1) Pseudomonas septicemia Is this a current diagnosis for this admission?: Yes (2) Metabolic alkalosis Is this a current diagnosis for this admission?: Yes (3) Hypokalemia Is this a current diagnosis for this admission?: Yes (4) Pseudoobstruction of colon Is this a current diagnosis for this admission?: Yes (5) Gram negative septicemia Is this a current diagnosis for this admission?: Yes (6) Sepsis Qualifiers: Sepsis type: sepsis due to unspecified organism Qualified Code(s): A41.9 - Sepsis, unspecified organism Is this a current diagnosis for this admission?: Yes (7) Urinary tract infection Qualifiers: Urinary tract infection type: site unspecified Hematuria presence: without hematuria Qualified Code(s): N39.0 - Urinary tract infection, site not specified Is this a current diagnosis for this admission?: Yes (8) Hypernatremia Is this a current diagnosis for this admission?: Yes
--- NOTE | 2018-08-02 14:59 | PDOC TRANSFER SUMMARY ---
General - Admit/Disc Date/PCP Admission Date/Primary Care Provider: 07/18/18 19:52 ALAN ANGLIN MD Discharge Date: 08/02/18 - Discharge Diagnosis (1) Pseudomonas septicemia Is this a current diagnosis for this admission?: Yes (2) Metabolic alkalosis Is this a current diagnosis for this admission?: Yes (3) Hypokalemia Is this a current diagnosis for this admission?: Yes (4) Pseudoobstruction of colon Is this a current diagnosis for this admission?: Yes (5) Gram negative septicemia Is this a current diagnosis for this admission?: Yes (6) Sepsis Is this a current diagnosis for this admission?: Yes (7) Urinary tract infection Is this a current diagnosis for this admission?: Yes (8) Hypernatremia Is this a current diagnosis for this admission?: Yes (9) Dementia Is this a current diagnosis for this admission?: Yes - Additional Information Resuscitation Status: Do Not Resuscitate Prescriptions: RX: Morphine Sulfate [Morphine 10 mg/ml Inj] 2 mg IV Q4HP PRN #100 vial PRN Reason: Home Medications: RX: Morphine Sulfate [Morphine 10 mg/ml Inj] 2 mg IV Q4HP PRN #100 vial History of Present Illness Admission Date/PCP: 07/18/18 19:52 ALAN ANGLIN MD History of Present Illness: PARADISE ANTUNEZ is a 77 year old female, She has advanced dementia, nonverbal, history of chronic pseudoobstruction of the colon, she was transferred from [facility] for evaluation of hemorrhage around the PEG tube site. In the emergency room she was evaluated, she was found to have severe hypokalemia, abdominal distention also found was severe metabolic alkalosis most likely from dehydration.No history could be obtained from this patient, she has severe sepsis due to urinary tract infection Hospital Course Hospital Course: Patient with advanced dementia she was admitted with severe sepsis, due to Pseudomonas septicemia, UTI, patient was treated with IV antibiotic without improvement, she has background pseudoobstruction of the colon. Patient is nonverbal, we spoke to the POA, the POA was in agreement to transition care to comfort care measures. She will be transferred back to halfway to continue care Physical Exam Vital Signs: Temp Pulse Resp BP Pulse Ox 95.1 F L 100 36 H 135/64 H 98 10/07/18 12:00 07/30/18 12:00 07/30/18 12:00 07/30/18 12:00 07/30/18 12:00 Intake & Output 08/01/18 08/02/18 08/03/18 06:59 06:59 06:59 Intake Total 0 Output Total 300 575 Balance -300 -575 Weight 98.3 kg 97.5 kg Results Laboratory Results: 07/29/18 06:50 07/29/18 06:50 07/18/18 07/18/18 07/19/18 21:50 21:50 03:31 Troponin I 0.047 0.041 NT-Pro-B Natriuret Pep 71521 H 07/19/18 09:59 Troponin I 0.031 NT-Pro-B Natriuret Pep Impressions: KUB X-Ray 07/18/18 16:40 IMPRESSION: Possible fecal impaction. Gaseous distention of the colon. The cecum remains distended but shows improvement compared to the earlier study from 07/03/[address] 07/21/18 00:00 IMPRESSION: 1. Prominent right parotid gland. 2. Asymmetrical of mucosal thickening in the right side of the pharynx. No definite concepción appendiceal abscess is appreciated. Study is limited by lack of contrast. 3. Left upper lobe pneumonia. 4. Left thyroid nodule. 5. Extensive cerebral changes. 6. Subcutaneous edema. Chest X-Ray 07/29/18 06:25 IMPRESSION: Findings suggestive of pulmonary vascular congestion accentuated by expiratory technique. Qualifiers - * PATIENT BEING DISCHARGED WITH ANY OF THE FOLLOWING DIAGNOSIS: No
== END 2018-08-02 09:55 | DRG 871 ==
LOC: ER 15:15 → EH 19:52 → 4N 07-19 17:00
PROVIDERS: ADMIT Internal Medicine; ATTEND Internal Medicine
PROC: 02HV33Z Insertion of Infusion Device into Superior Vena Cava, Percutaneous Approach (ICD-10-PCS; principal; 2018-07-19)
PROC: 30243N1 Transfusion of Nonautologous Red Blood Cells into Central Vein, Percutaneous Approach (ICD-10-PCS; 2018-07-23)
PROC: 30243N1 Transfusion of Nonautologous Red Blood Cells into Central Vein, Percutaneous Approach (ICD-10-PCS; 2018-07-28)
DX: A41.52 Sepsis due to Pseudomonas (principal); J18.9 Pneumonia, unspecified organism; E87.3 Alkalosis; N39.0 Urinary tract infection, site not specified; E44.0 Moderate protein-calorie malnutrition; E87.0 Hyperosmolality and hypernatremia; Z43.1 Encounter for attention to gastrostomy; R65.20 Severe sepsis without septic shock; I87.2 Venous insufficiency (chronic) (peripheral); E86.0 Dehydration; K11.20 Sialoadenitis, unspecified; E87.6 Hypokalemia; Z66 Do not resuscitate; F03.90 Unspecified dementia, unspecified severity, without behavioral disturbance, psychotic disturbance, mood disturbance, and anxiety; K59.8 Other specified functional intestinal disorders; D69.59 Other secondary thrombocytopenia; B96.1 Klebsiella pneumoniae [K. pneumoniae] as the cause of diseases classified elsewhere; D64.89 Other specified anemias; E11.9 Type 2 diabetes mellitus without complications; I10 Essential (primary) hypertension; M19.90 Unspecified osteoarthritis, unspecified site; K21.9 Gastro-esophageal reflux disease without esophagitis; Z95.0 Presence of cardiac pacemaker; Z51.5 Encounter for palliative care; F32.9 Major depressive disorder, single episode, unspecified; Z79.899 Other long term (current) drug therapy; Z68.34 Body mass index [BMI] 34.0-34.9, adult
CPT/HCPCS: 36415; 36430; 36600; 70490; 71045; 74018; 80048; 80053; 80061; 80076; 80202; 81001; 82140; 82150; 82565; 82803; 82962; 83036; 83690; 83735; 83880; 84100; 84439; 84443; 84484; 85025; 85610; 85730; 86850; 86900; 86901; 86920; 87040; 87077; 87086; 87088; 87186; 99284; C1751; J0696; J1940; J2543; J3370; J3480; J3490; J7060; P9016

== ENCOUNTER 2018-08-07 19:24 | Inpatient (IN) | payer MEDICARE, MEDICAID ==
[2018-08-07 23:02] LABS: ABSOLUTE MONOCYTES (AUTO) 0.3 10^3/uL (0.1-1.4); ABSOLUTE NEUT (AUTO) 6.8 10^3/uL (1.7-8.2); BASOPHILS % (AUTO) 0.4 % (0-2); EOSINOPHILS % (AUTO) 0.1 % (0-6); HEMATOCRIT 27.4 % (36.0-47.0); HEMOGLOBIN 9.1 g/dL (12.0-15.5); LYMPHOCYTES % (AUTO) 11.9 % (13-45); MEAN CORPUSCULAR HEMOGLOBIN 29.7 pg (27.0-33.4); MEAN CORPUSCULAR HGB CONC 33.3 g/dL (32.0-36.0); MEAN CORPUSCULAR VOLUME 89 fl (80-97); MONOCYTES % (AUTO) 3.8 % (3-13); PLATELET COUNT 103 10^3/uL (150-450); RED BLOOD COUNT 3.07 10^6/uL (3.72-5.28); SEGMENTED NEUTROPHILS % (AUTO) 83.8 % (42-78); TOTAL CELLS COUNTED % (AUTO) 100 %; WHITE BLOOD COUNT 8.1 10^3/uL (4.0-10.5)
[2018-08-07 23:06] LABS: INTERNATIONAL RATION (INR) 1.09; PROTHROMBIN TIME 14.7 SEC (11.4-15.4)
--- NOTE | 2018-08-07 23:17 | RADIOLOGY REPORT (SQ) ---
EXAM DESCRIPTION: XR CHEST 1 VIEW COMPLETED DATE/TME: 08/07/2018 20:54 CLINICAL HISTORY: 77 years, Female, Rhonchi COMPARISON: EXAM DESCRIPTION: CLINICAL HISTORY: Rhonchi COMPARISON: 07/29/2018 FINDINGS: Single view of the chest is submitted. There are bilateral worsened consolidations. The heart remains enlarged. Small bilateral pleural effusions are again seen. Lung volumes are low. IMPRESSION: Bilateral worsened consolidations. LIMITATIONS: None. FINDINGS: IMPRESSION: 2010 [facility] [employer] [employer]- All Rights Reserved
--- NOTE | 2018-08-07 23:30 | RADIOLOGY REPORT (SQ) ---
EXAM DESCRIPTION: CT HEAD WITHOUT IV CONTRAST COMPLETED DATE/TME: 08/07/2018 20:55 CLINICAL HISTORY: 77 years Female AMS COMPARISON: None. TECHNIQUE: Contiguous axial CT images obtained through the brain without IV contrast. This exam was performed according to our department optimization program which includes automated exposure control, adjustment of the mA and/or kv according to patient size and/or use of iterative reconstruction technique. FINDINGS: The ventricles and sulci are markedly prominent consistent with atrophic changes. Small area of encephalomalacia in the right occipital lobe. Prominent CSF space likely related atrophy. Extensive microvascular change No midline shift or mass effect. No mass lesions. No acute hemorrhage. Atherosclerotic calcifications. No fluid or significant mucosal thickening in the visualized paranasal sinuses. No depressed calvarial fractures. IMPRESSION: No acute intracranial abnormality is identified. Severe atrophy with microvascular ischemic changes.
[2018-08-07 23:39] LABS: ALANINE AMINOTRANSFERASE 31 U/L (9-52); ALBUMIN 2.3 g/dL (3.5-5.0); ALKALINE PHOSPHATASE 112 U/L (38-126); ASPARTATE AMINO TRANSFERASE 38 U/L (14-36); BILIRUBIN,DIRECT 0.5 mg/dL (0.0-0.4); BILIRUBIN,TOTAL 0.6 mg/dL (0.2-1.3); BLOOD UREA NITROGEN 17 mg/dL (7-20); CALCIUM 8.5 mg/dL (8.4-10.2); CHLORIDE 106 mmol/L (98-107); GLUCOSE 85 mg/dL (75-110); POTASSIUM 3.3 mmol/L (3.6-5.0); SODIUM 152.3 mmol/L (137-145); TOTAL PROTEIN 6.1 g/dL (6.3-8.2)
[2018-08-07 23:47] LABS: ANION GAP 7 (5-19); CARBON DIOXIDE 39 mmol/L (22-30)
[2018-08-08 00:03] LABS: CREATINE KINASE < 20 U/L (30-135)
[2018-08-08 00:07] LABS: CREATINE KINASE MB 1.9 ng/mL (<4.55); TROPONIN I 0.022 ng/mL
[2018-08-08 00:44] LABS: APPEARANCE,URINE SLIGHTLY-CLOUDY; BILIRUBIN,URINE NEGATIVE (NEGATIVE); COLOR,URINE YELLOW; GLUCOSE, URINE NEGATIVE (NEGATIVE); KETONES,URINE TRACE mg/dL (NEGATIVE); LEUKOCYTE ESTERASE,URINE SMALL (NEGATIVE); NITRITE,URINE NEGATIVE (NEGATIVE); PROTEIN,URINE 100 mg/dL (NEGATIVE); URINE SPECIFIC GRAVITY 1.013; UROBILINOGEN,URINE NEGATIVE mg/dL (<2.0)
[2018-08-08] MEDS ORDERED: LEVOFLOXACIN 750 MG/D5W RTU 750 MG/150 ML RTUPB IV ONE ×2 (02:33→03:17)
[2018-08-08] MEDS ORDERED: FLUCONAZOLE 200 MG/NS RTU 200 MG/100 ML RTUPB IV ONE ×2 (02:33→03:13)
--- NOTE | 2018-08-08 02:35 | ER Document Report ---
ED General - General Chief Complaint: Other Stated Complaint: EVALUATION Time Seen by Provider: 08/07/18 20:22 Mode of Arrival: Stretcher Information source: Emergency Med Personnel Cannot obtain history due to: Altered mental status Notes: Patient was brought to the emergency room from [facility] for evaluation. Patient is in a persistent vegetative state. She is unable to communicate. Patient is nonverbal and does not make eye contact. Patient was originally DO NOT RESUSCITATE in the [facility]. TRAVEL OUTSIDE OF THE [place] IN LAST 30 DAYS: No - HPI Onset: Just prior to arrival Onset/Duration: Sudden Recently seen / treated by doctor: No - Related Data Allergies/Adverse Reactions: No Known Allergies Allergy (Verified 02/20/17 23:56) Past Medical History - Social History Smoking Status: Never Smoker Family History: None, Reviewed & Not Pertinent Patient has suicidal ideation: No Patient has homicidal ideation: No - Past Medical History Cardiac Medical History: Reports: Hx Hypercholesterolemia, Hx Hypertension Pulmonary Medical History: Reports: Hx Sleep Apnea Comment Only: Hx Tuberculosis - UNKNOWN Neurological Medical History: Reports: Hx Seizures Endocrine Medical History: Reports: Hx Diabetes Mellitus Type 2 Renal/ Medical History: Denies: Hx Peritoneal Dialysis GI Medical History: Reports: Hx Gastroesophageal Reflux Disease Musculoskeletal Medical History: Reports Hx Arthritis Psychiatric Medical History: Reports: Hx Dementia, Hx Depression, Hx Schizophrenia Past Surgical History: Reports: Hx Abdominal Surgery - Peg tube, Hx Cardiac Surgery - Pacemaker, Other - PEG tube placement. Denies: Hx Hysterectomy - Immunizations Hx Diphtheria, Pertussis, Tetanus Vaccination: Yes Hx Pneumococcal Vaccination: 02/20/09 Review of Systems - Review of Systems -: Yes ROS unobtainable due to patient's medical condition Physical Exam - Vital signs Vitals: Pulse Resp BP Pulse Ox 78 18 143/87 H 100 08/07/18 19:30 08/07/18 19:30 08/07/18 19:30 08/07/18 19:30 Interpretation: Normal - General General appearance: Alert - HEENT Head: Normocephalic, Atraumatic Eyes: Normal Pupils: PERRL - Respiratory Respiratory status: No respiratory distress Chest status: Nontender Breath sounds: Decreased air movement, Rhonchi Chest palpation: Normal - Cardiovascular Rhythm: Regular Heart sounds: Normal auscultation Murmur: No - Abdominal Inspection: Normal Distension: No distension Bowel sounds: Normal Tenderness: Nontender Organomegaly: No organomegaly - Back Back: Nontender - Extremities General upper extremity: Nontender, Normal color, Normal temperature General lower extremity: Nontender, Normal color, Normal temperature. No: Missy 's sign - Neurological Jazmine Coma Scale Eye Opening: Spontaneous [place] Coma Scale Verbal: None [place] Coma Scale Motor: Withdraws to Pain Jazmine Coma Scale Total: 9 - Skin Skin Temperature: Warm Skin Moisture: Dry Skin Color: Normal Course - Vital Signs Vital signs: Temp Pulse Resp BP Pulse Ox 95 F L 78 22 H 125/70 100 08/08/18 03:01 08/07/18 19:30 08/08/18 03:01 08/08/18 03:01 08/08/18 03:01 - Laboratory Result Diagrams: 08/07/18 22:45 08/07/18 22:45 Laboratory results interpreted by me: 08/07/18 08/07/18 08/07/18 22:45 22:45 22:45 RBC 3.07 L Hgb 9.1 L Hct 27.4 L RDW 16.0 H Plt Count 103 L Seg Neutrophils % 83.8 H Lymphocytes % 11.9 L APTT 39.0 H Sodium 152.3 H Potassium 3.3 L Carbon Dioxide 39 H Direct Bilirubin 0.5 H AST 38 H Creatine Kinase < 20 L Total Protein 6.1 L Albumin 2.3 L TSH Urine Protein Urine Ketones Urine Blood Ur Leukocyte Esterase 08/07/18 08/08/18 22:45 00:05 RBC Hgb Hct RDW Plt Count Seg Neutrophils % Lymphocytes % APTT Sodium Potassium Carbon Dioxide Direct Bilirubin AST Creatine Kinase Total Protein Albumin TSH 11.30 H Urine Protein 100 H Urine Ketones TRACE H Urine Blood LARGE H Ur Leukocyte Esterase SMALL H - Diagnostic Test Radiology reviewed: Image reviewed, Reports reviewed - EKG Interpretation by Me EKG shows normal: Sinus rhythm Rate: Normal - 73 Rhythm: NSR When compared to previous EKG there are: No significant change Additional EKG results interpreted by me: 08/08/18 02:[address] and T wave changes. No STEMI. - Transfer of Care Care transferred to following provider: Patient will be admitted to the hospital by Dr. Torrez. Discharge - Discharge Clinical Impression: Candidal UTI (urinary tract infection) Pneumonia Qualifiers: Pneumonia type: due to unspecified organism Laterality: bilateral Lung location : unspecified part of lung Qualified Code(s): J18.9 - Pneumonia, unspecified organism Condition: Stable Disposition: ADMITTED INPATIENT Admitting Provider: [facility] Admitted: Telemetry
[2018-08-08] MEDS ORDERED: VANCOMYCIN HCL 0 MG in DEXTROSE 5%-WATER 250 ML IV NR (02:45)
[2018-08-08] MEDS ORDERED: PIPERACILLIN/TAZOBACTAM 3.375 GM VIAL IV PRN (03:21)
[2018-08-08] MEDS: DEXTROSE 5%-WATER 1000 ML 1,000 ML IV PRN (03:25)
[2018-08-08] MEDS ORDERED: PIPERACILLIN SODIUM/TAZOBACTAM 3.375 GM in NORMAL SALINE 100 ML IV ONE (03:30)
[2018-08-08 03:31] LABS: FREE T4 (FREE THYROXINE) 1.77 ng/dL (0.78-2.19)
[2018-08-08 03:45] LABS: THYROID STIMULATING HORMONE 11.3 uIU/mL (0.47-4.68)
[2018-08-08 04:54] LABS: INTERNATIONAL RATION (INR) 1.09; PROTHROMBIN TIME 14.7 SEC (11.4-15.4)
[2018-08-08 05:10] LABS: CREATINE KINASE MB 1.81 ng/mL (<4.55); TROPONIN I 0.023 ng/mL
[2018-08-08] MEDS ORDERED: VANCOMYCIN HCL 1,500 MG in DEXTROSE 5%-WATER 250 ML IV ONE (05:15)
[2018-08-08] MEDS ORDERED: VANCOMYCIN HCL INJ 500 MG VIAL ONE (06:00)
[2018-08-08] MEDS ORDERED: VANCOMYCIN HCL INJ 1000 MG VIAL ONE (06:00)
[2018-08-08 06:01] LABS: ARTERIAL BLOOD H2CO3 2.22 mmol/L (1.05-1.35); ARTERIAL BLOOD HCO3 41.3 mmol/L (20-24); ARTERIAL BLOOD O2 SATURATION 99.1 % (94-98); ARTERIAL BLOOD PH 7.37 (7.35-7.45); ARTERIAL BLOOD PO2 181.3 mmHg (80-100); ARTERIAL BLOOD TOTAL CO2 43.6 mmol/L (21-25)
[2018-08-08 06:02] LABS: ARTERIAL BLOOD FIO2 4L
[2018-08-08 06:03] LABS: ARTERIAL BLOOD PCO2 73.6 mmHg (35-45)
--- NOTE | 2018-08-08 07:49 | EKG REPORT ---
SEVERITY:- ABNORMAL ECG - SINUS RHYTHM ABNORMAL T, CONSIDER ISCHEMIA, LATERAL LEADS : Confirmed by: Everett Batista MD 08-Aug-2018 07:48:22
[2018-08-08] MEDS: PIPERACILLIN SODIUM/TAZOBACTAM 3.375 GM in NORMAL SALINE 100 ML IV SCH ×3 (09:03→20:30)
[2018-08-08] MEDS: ENOXAPARIN SODIUM INJ 40 MG/0.4 ML DISP.SYRIN SUBCUT SCH (10:26)
[2018-08-08 12:30] LABS: CREATINE KINASE MB 1.62 ng/mL (<4.55); TROPONIN I 0.02 ng/mL
[2018-08-08 17:50] LABS: CREATINE KINASE MB 1.22 ng/mL (<4.55); TROPONIN I 0.026 ng/mL
--- NOTE | 2018-08-08 20:29 | PDOC H&P ---
History of Present Illness Admission Date/PCP: 08/08/18 02:46 ALAN ANGLIN MD History of Present Illness: PARADISE ANTUNEZ is a 77 year old female, She has advanced dementia, non-verbal, chronic pseudoobstruction of the colon tube feeder, she was recently discharged from this hospital on July 02, 2018 back to group home on comfort care measures. At the time she was diagnosed with Pseudomonas septicemia. Patient does not have any capacity to make any reasonable medical decisions for herself , she has a POA, the brother at the last hospital admission we had extensive conversation with the brother regarding the poor prognosis and the fact that she was in septic shock. Her brother was agreeable to comfort care, she was then transferred back to group home to continue comfort care measures. But my understanding is that her brothe the POA change his mindr and he wants patient transferred back to the hospital to be treated for sepsis. No history could be obtained from this patient, the chest x-ray showed diffuse infiltrate in both lung myers, the ABG on FiO2 4 L, pH 7.37 PCO2 73.6 PO2 181.3 bicarbonate 41.3 consistent with acute respiratory acidosis, patient is a DNR she maintained that status. She was hypothermic on arrival, temperature was 92 , overall prognosis remains poor in this patient, she is not a candidate for mechanical ventilation Past Medical History Cardiac Medical History: Reports: Hyperlipidema, Hypertension Pulmonary Medical History: Reports: Sleep Apnea Comment Only: Tuberculosis - UNKNOWN Neurological Medical History: Reports: Seizures Endocrine Medical History: Reports: Diabetes Mellitus Type 2 GI Medical History: Reports: Gastroesophageal Reflux Disease Musculoskeltal Medical History: Reports: Arthritis Psychiatric Medical History: Reports: Dementia Hematology: Reports: Anemia Past Surgical History Past Surgical History: Reports: Other - PEG tube placement Social History Smoking Status: Never Smoker Hx Recreational Drug Use: No Hx Prescription Drug Abuse: No - Advance Directive Resuscitation Status: Do Not Resuscitate Family History Family History: None, Reviewed & Not Pertinent Parental Family History Reviewed: Yes Children Family History Reviewed: Yes Sibling(s) Family History Reviewed.: Yes Medication/Allergy Home Medications: Morphine Sulfate [Morphine 10 mg/5 ml Oral Soln Udcup] 2 mg SL Q4HP PRN Allergies/Adverse Reactions: No Known Allergies Allergy (Verified 02/20/17 23:56) Review of Systems ROS unobtainable: Due to mental status Physical Exam Vital Signs: Temp Pulse Resp BP Pulse Ox 98.8 F 105 H 12 118/50 L 97 08/08/18 20:00 08/08/18 20:00 08/08/18 20:00 08/08/18 20:00 08/08/18 20:00 Intake & Output 08/07/18 08/08/18 08/09/18 06:59 06:59 06:59 Intake Total 250 1200 Output Total 100 850 Balance 150 350 Weight 82.9 kg General appearance: PRESENT: other - Unresponsive Respiratory exam: PRESENT: crackles, rhonchi Cardiovascular exam: PRESENT: +S1, +S2 GI/Abdominal exam: PRESENT: soft Extremities exam: PRESENT: pedal edema Neurological exam: PRESENT: altered Results Laboratory Results: 08/08/18 08/08/18 04:27 05:40 Carbonic Acid 2.22 H HCO3/H2CO3 Ratio 18:1 ABG pH 7.37 ABG pCO2 73.6 H* ABG pO2 181.3 H ABG HCO3 41.3 H ABG O2 Saturation 99.1 H ABG Base Excess 14.0 FiO2 4L Lactic Acid 0.8 08/08/18 08/08/18 08/08/18 04:27 11:41 17:10 CK-MB (CK-2) 1.81 1.62 1.22 Troponin I 0.023 0.020 0.026 Impressions: Chest X-Ray 08/07/18 20:54 IMPRESSION: Bilateral worsened consolidations. LIMITATIONS: None. FINDINGS: IMPRESSION: 2010 [facility]- All Rights Reserved Head CT 08/07/18 20:55 IMPRESSION: No acute intracranial abnormality is identified. Severe atrophy with microvascular ischemic changes. Assessment & Plan - Diagnosis (1) Acute hypercapnic respiratory failure Is this a current diagnosis for this admission?: Yes (2) Bilateral pneumonia Qualifiers: Pneumonia type: due to unspecified organism Lung location: unspecified part of lung Qualified Code(s): J18.9 - Pneumonia, unspecified organism Is this a current diagnosis for this admission?: Yes Plan: Patient to be treated with antibiotic to cover healthcare associated acquired pathogens (3) Sepsis Qualifiers: Sepsis type: sepsis due to unspecified organism Qualified Code(s): A41.9 - Sepsis, unspecified organism Is this a current diagnosis for this admission?: Yes Plan: Patient meets sepsis criteria (4) Chronic intestinal pseudo-obstruction Is this a current diagnosis for this admission?: Yes (5) Hypernatremia Is this a current diagnosis for this admission?: Yes (6) Hypoalbuminemia Is this a current diagnosis for this admission?: Yes
[2018-08-08] MEDS: VANCOMYCIN HCL 750 MG in DEXTROSE 5%-WATER 250 ML IV SCH (22:09)
[2018-08-09] MEDS: PIPERACILLIN SODIUM/TAZOBACTAM 3.375 GM in NORMAL SALINE 100 ML IV SCH ×4 (02:14→20:53)
[2018-08-09] MEDS: DEXTROSE 5%-WATER 1000 ML 1,000 ML IV PRN ×2 (03:27→17:26)
[2018-08-09 05:51] LABS: ABSOLUTE LYMPHOCYTES (AUTO) 1.4 10^3/uL (0.5-4.7); ABSOLUTE MONOCYTES (AUTO) 0.5 10^3/uL (0.1-1.4); ABSOLUTE NEUT (AUTO) 8.8 10^3/uL (1.7-8.2); BASOPHILS % (AUTO) 0.4 % (0-2); EOSINOPHILS % (AUTO) 0.1 % (0-6); HEMATOCRIT 24.8 % (36.0-47.0); HEMOGLOBIN 8.6 g/dL (12.0-15.5); LYMPHOCYTES % (AUTO) 12.8 % (13-45); MEAN CORPUSCULAR HEMOGLOBIN 30.8 pg (27.0-33.4); MEAN CORPUSCULAR HGB CONC 34.6 g/dL (32.0-36.0); MEAN CORPUSCULAR VOLUME 89 fl (80-97); MONOCYTES % (AUTO) 4.8 % (3-13); PLATELET COUNT 115 10^3/uL (150-450); RED BLOOD COUNT 2.79 10^6/uL (3.72-5.28); RED CELL DISTRIBUTION WIDTH 15.8 % (11.5-14.0); SEGMENTED NEUTROPHILS % (AUTO) 81.9 % (42-78); TOTAL CELLS COUNTED % (AUTO) 100 %; WHITE BLOOD COUNT 10.7 10^3/uL (4.0-10.5)
[2018-08-09 06:27] LABS: ALANINE AMINOTRANSFERASE 36 U/L (9-52); ALBUMIN 2.1 g/dL (3.5-5.0); ALKALINE PHOSPHATASE 137 U/L (38-126); ASPARTATE AMINO TRANSFERASE 38 U/L (14-36); BILIRUBIN,DIRECT 0.3 mg/dL (0.0-0.4); BILIRUBIN,TOTAL 0.5 mg/dL (0.2-1.3); BLOOD UREA NITROGEN 17 mg/dL (7-20); GLUCOSE 118 mg/dL (75-110); TOTAL PROTEIN 5.6 g/dL (6.3-8.2)
[2018-08-09 06:33] LABS: ANION GAP 5 (5-19); CARBON DIOXIDE 38 mmol/L (22-30); CHLORIDE 104 mmol/L (98-107); SODIUM 146.6 mmol/L (137-145)
[2018-08-09 06:42] LABS: POTASSIUM 2.9 mmol/L (3.6-5.0)
[2018-08-09] MEDS: ENOXAPARIN SODIUM INJ 40 MG/0.4 ML DISP.SYRIN SUBCUT SCH (10:19)
[2018-08-09] MEDS: VANCOMYCIN HCL 750 MG in DEXTROSE 5%-WATER 250 ML IV SCH ×2 (12:30→22:13)
[2018-08-09] MEDS: POTASSIUM CHLORIDE 20 MEQ/50 ML RTU IV SCH ×2 (12:36→16:19)
[2018-08-09] MEDS ORDERED: IPRATROPIUM/ALBUTEROL 0.5-2.5 MG/3 ML AMPUL NEB PRN (15:09)
[2018-08-09] MEDS ORDERED: ACETAMINOPHEN 325 MG TABLET PEG PRN (15:10)
[2018-08-09] MEDS ORDERED: POTASSIUM CHLORIDE 20 MEQ/15 ML UDCUP PEG ONE (15:30)
--- NOTE | 2018-08-09 16:59 | PDOC PROGRESS REPORT ---
Subjective Progress Note for:: 08/09/18 Subjective:: Patient seen by the bedside, condition remains critical Reason For Visit: BILATERAL PNEUMONIA, UTI, DEMENTIA, HYPERNATREMIA Physical Exam Vital Signs: Temp Pulse Resp BP Pulse Ox 99.4 F 93 32 H 124/55 L 100 08/09/18 16:28 08/09/18 16:28 08/09/18 16:28 08/09/18 16:28 08/09/18 16:28 Intake & Output 08/08/18 08/09/18 08/10/18 06:59 06:59 06:59 Intake Total 250 1650 100 Output Total 100 1250 125 Balance 150 400 -25 Weight 82.9 kg 82.9 kg General appearance: PRESENT: other - Stuporous Respiratory exam: PRESENT: rhonchi Cardiovascular exam: PRESENT: +S1, +S2 GI/Abdominal exam: PRESENT: soft Neurological exam: PRESENT: alert Results Laboratory Results: 08/09/18 05:22 08/09/18 05:22 08/09/18 08/09/18 05:22 05:22 WBC 10.7 H RBC 2.79 L Hgb 8.6 L Hct 24.8 L MCV 89 MCH 30.8 MCHC 34.6 RDW 15.8 H Plt Count 115 L Seg Neutrophils % 81.9 H Lymphocytes % 12.8 L Monocytes % 4.8 Eosinophils % 0.1 Basophils % 0.4 Absolute Neutrophils 8.8 H Absolute Lymphocytes 1.4 Absolute Monocytes 0.5 Absolute Eosinophils 0.0 Absolute Basophils 0.0 Sodium 146.6 H Potassium 2.9 L* Chloride 104 Carbon Dioxide 38 H Anion Gap 5 BUN 17 Creatinine 0.76 Est GFR ( Amer) > 60 Est GFR (Non-Af Amer) > 60 Glucose 118 H Calcium 8.0 L Total Bilirubin 0.5 AST 38 H ALT 36 Alkaline Phosphatase 137 H Total Protein 5.6 L Albumin 2.1 L 08/08/18 08/08/18 08/08/18 04:27 11:41 17:10 CK-MB (CK-2) 1.81 1.62 1.22 Troponin I 0.023 0.020 0.026 Impressions: Chest X-Ray 08/07/18 20:54 IMPRESSION: Bilateral worsened consolidations. LIMITATIONS: None. FINDINGS: IMPRESSION: 2010 [email or web address]- All Rights Reserved Head CT 08/07/18 20:55 IMPRESSION: No acute intracranial abnormality is identified. Severe atrophy with microvascular ischemic changes. Assessment & Plan - Diagnosis (1) Acute hypercapnic respiratory failure Is this a current diagnosis for this admission?: Yes (2) Bilateral pneumonia Qualifiers: Pneumonia type: due to unspecified organism Lung location: unspecified part of lung Qualified Code(s): J18.9 - Pneumonia, unspecified organism Is this a current diagnosis for this admission?: Yes (3) Sepsis Qualifiers: Sepsis type: sepsis due to unspecified organism Qualified Code(s): A41.9 - Sepsis, unspecified organism Is this a current diagnosis for this admission?: Yes (4) Chronic intestinal pseudo-obstruction Is this a current diagnosis for this admission?: Yes (5) Hypernatremia Is this a current diagnosis for this admission?: Yes (6) Hypoalbuminemia Is this a current diagnosis for this admission?: Yes - Plan Summary Plan Summary: Overall prognosis remains poor continue IV antibiotic continue supportive care, patient remains a DNR status
[2018-08-09] MEDS ORDERED: DEXTROSE 40% GEL 15 GM TUBE X 2 PO PRN (17:26)
[2018-08-09] MEDS ORDERED: GLUCAGON,HUMAN RECOMB 1 MG INJ IM PRN (17:26)
[2018-08-09] MEDS ORDERED: DEXTROSE 50%-WATER SYRINGE 12.5 GM/25 ML DOSE IV PRN (17:26)
[2018-08-09] MEDS ORDERED: DEXTROSE 40% GEL 15 GM TUBE PO PRN (17:26)
[2018-08-09] MEDS ORDERED: DEXTROSE 50%-WATER SYRINGE 25 GM/50 ML DOSE IV PRN (17:26)
[2018-08-09] MEDS ORDERED: INSULIN LISPRO 100 UNIT/ML 3 ML VIAL SUBCUT PRN (17:27)
[2018-08-10] MEDS: PIPERACILLIN SODIUM/TAZOBACTAM 3.375 GM in NORMAL SALINE 100 ML IV SCH ×4 (02:48→20:25)
[2018-08-10 05:00] LABS: ABSOLUTE LYMPHOCYTES (AUTO) 1.6 10^3/uL (0.5-4.7); ABSOLUTE MONOCYTES (AUTO) 0.6 10^3/uL (0.1-1.4); ABSOLUTE NEUT (AUTO) 9.7 10^3/uL (1.7-8.2); BASOPHILS % (AUTO) 0.4 % (0-2); EOSINOPHILS % (AUTO) 0.4 % (0-6); HEMATOCRIT 22.7 % (36.0-47.0); LYMPHOCYTES % (AUTO) 13.2 % (13-45); MEAN CORPUSCULAR HEMOGLOBIN 30.2 pg (27.0-33.4); MEAN CORPUSCULAR HGB CONC 32.9 g/dL (32.0-36.0); MEAN CORPUSCULAR VOLUME 92 fl (80-97); MONOCYTES % (AUTO) 5.4 % (3-13); RED BLOOD COUNT 2.47 10^6/uL (3.72-5.28); RED CELL DISTRIBUTION WIDTH 16.2 % (11.5-14.0); SEGMENTED NEUTROPHILS % (AUTO) 80.6 % (42-78); TOTAL CELLS COUNTED % (AUTO) 100 %
[2018-08-10 05:03] LABS: HEMOGLOBIN 7.5 g/dL (12.0-15.5)
[2018-08-10 05:04] LABS: PLATELET COUNT 88 10^3/uL (150-450)
[2018-08-10 05:11] LABS: ALANINE AMINOTRANSFERASE 30 U/L (9-52); ALBUMIN 1.9 g/dL (3.5-5.0); ALKALINE PHOSPHATASE 127 U/L (38-126); ANION GAP 5 (5-19); ASPARTATE AMINO TRANSFERASE 29 U/L (14-36); BILIRUBIN,DIRECT 0.2 mg/dL (0.0-0.4); BILIRUBIN,TOTAL 0.4 mg/dL (0.2-1.3); BLOOD UREA NITROGEN 19 mg/dL (7-20); CALCIUM 7.5 mg/dL (8.4-10.2); CARBON DIOXIDE 38 mmol/L (22-30); CHLORIDE 100 mmol/L (98-107); GLUCOSE 120 mg/dL (75-110); POTASSIUM 3.1 mmol/L (3.6-5.0); SODIUM 143.1 mmol/L (137-145); TOTAL PROTEIN 5.1 g/dL (6.3-8.2)
[2018-08-10] MEDS: ENOXAPARIN SODIUM INJ 40 MG/0.4 ML DISP.SYRIN SUBCUT SCH (09:21)
[2018-08-10] MEDS: VANCOMYCIN HCL 750 MG in DEXTROSE 5%-WATER 250 ML IV SCH ×2 (10:49→22:52)
[2018-08-10] MEDS: DEXTROSE 5%-WATER 1000 ML 1,000 ML IV PRN (10:58)
--- NOTE | 2018-08-10 11:28 | Physician Advisory Note ---
Physician Advisor ProgressNote .: [facility] I have reviewed the medical record for this patient. Physician Advisor Statement: Please consider documenting, if you agree: 1. "Pneumonia, suspect gram-___ type" (if covering for HCA's pathogens, that typically means suspecting GN's &/ or MRSA, but coders aren't allowed to assume that) 2. "Sepsis, considered/suspected but ruled out", vs "sepsis, due to PNA, evidenced by " (& state any/all organ dysfunction that is "due to sepsis") - Please avoid stating "meets sepsis criteria" - this phrase leaves questions in the reviewer's mind as to whether you really think pt had sepsis clinically, or not. The average acute strep throat can "meet Sepsis-2 criteria " but that doesn't mean the pt was clinically septic. - If the pt was clinically septic, one would expect to see evidence of distress, organ dysfunction, .... Was her mental status any different than baseline? ... 3. "protein-calorie malnutrition [state mild/mod/ sev] with BMI 31.5, terminal gauger tube feeding, ..." & state all supporting evidence you can: A. Loss of subcut fat is mild/mod/sev, B. Loss of muscle mass is mild/mod/sev C. Editor Newspaper strength noticeably reduced (or not) D. Amt weight lost over the past week/mo/3mo/6mo/year (note usual wt) E. Intake <50% of estimated energy requirements for 5-7 days, or <75% of estimated energy requirements for 1+mo.s? & clinical importance such as: A. appeals analyst consult ordered, B. modified diet/supplements ordered, C. additional labs ordered, D. prolonged wound healing time, E. delayed infxn clearance] Thanks! CK Note: Pt had ABG on 07/18/18 of ph 7.57, pCO2 50.5, bicarb 44.9. Plts 103, ?worsened mental status, prominent hypothermia initially, prominent persistent tachypnea, some tachycardia...
--- NOTE | 2018-08-10 21:24 | PDOC PROGRESS REPORT ---
Subjective Progress Note for:: 08/10/18 Subjective:: Patient seen by the bedside, she is anemic most likely dilutional Reason For Visit: BILATERAL PNEUMONIA, UTI, DEMENTIA, HYPERNATREMIA Physical Exam Vital Signs: Temp Pulse Resp BP Pulse Ox 97.3 F 71 12 115/55 L 100 08/10/18 11:46 08/10/18 19:29 08/10/18 19:29 08/10/18 20:06 08/10/18 19:29 Intake & Output 08/09/18 08/10/18 08/11/18 06:59 06:59 06:59 Intake Total 1650 3973 1450 Output Total 1250 600 100 Balance 400 3373 1350 Weight 82.9 kg 88.5 kg General appearance: PRESENT: no acute distress Eye exam: PRESENT: PERRLA Respiratory exam: PRESENT: decreased breath sounds Cardiovascular exam: PRESENT: +S1, +S2 GI/Abdominal exam: PRESENT: soft Results Laboratory Results: 08/10/18 04:08 08/10/18 04:08 08/10/18 08/10/18 04:08 04:08 WBC 12.0 H RBC 2.47 L Hgb 7.5 L Hct 22.7 L MCV 92 MCH 30.2 MCHC 32.9 RDW 16.2 H Plt Count 88 L Seg Neutrophils % 80.6 H Lymphocytes % 13.2 Monocytes % 5.4 Eosinophils % 0.4 Basophils % 0.4 Absolute Neutrophils 9.7 H Absolute Lymphocytes 1.6 Absolute Monocytes 0.6 Absolute Eosinophils 0.0 Absolute Basophils 0.0 Sodium 143.1 Potassium 3.1 L Chloride 100 Carbon Dioxide 38 H Anion Gap 5 BUN 19 Creatinine 0.91 Est GFR ( Amer) > 60 Est GFR (Non-Af Amer) > 60 Glucose 120 H Calcium 7.5 L Total Bilirubin 0.4 AST 29 ALT 30 Alkaline Phosphatase 127 H Total Protein 5.1 L Albumin 1.9 L 08/08/18 08/08/18 08/08/18 04:27 11:41 17:10 CK-MB (CK-2) 1.81 1.62 1.22 Troponin I 0.023 0.020 0.026 Impressions: Chest X-Ray 08/07/18 20:54 IMPRESSION: Bilateral worsened consolidations. LIMITATIONS: None. FINDINGS: IMPRESSION: 2010 [employer]- All Rights Reserved Head CT 08/07/18 20:55 IMPRESSION: No acute intracranial abnormality is identified. Severe atrophy with microvascular ischemic changes. Assessment & Plan - Diagnosis (1) Acute hypercapnic respiratory failure Is this a current diagnosis for this admission?: Yes (2) Bilateral pneumonia Qualifiers: Pneumonia type: due to unspecified organism Lung location: unspecified part of lung Qualified Code(s): J18.9 - Pneumonia, unspecified organism Is this a current diagnosis for this admission?: Yes (3) Sepsis Qualifiers: Sepsis type: sepsis due to unspecified organism Qualified Code(s): A41.9 - Sepsis, unspecified organism Is this a current diagnosis for this admission?: Yes (4) Chronic intestinal pseudo-obstruction Is this a current diagnosis for this admission?: Yes (5) Hypernatremia Is this a current diagnosis for this admission?: Yes (6) Hypoalbuminemia Is this a current diagnosis for this admission?: Yes (8) Anemia Qualifiers: Anemia type: unspecified type Qualified Code(s): D64.9 - Anemia, unspecified Is this a current diagnosis for this admission?: Yes
[2018-08-10 21:44] LABS: VANCOMYCIN,TROUGH 25.1 ug/mL (5.0-20.0)
[2018-08-10 22:23] LABS: HEMATOCRIT 25.2 % (36.0-47.0); HEMOGLOBIN 8.1 g/dL (12.0-15.5); MEAN CORPUSCULAR HEMOGLOBIN 29.7 pg (27.0-33.4); MEAN CORPUSCULAR HGB CONC 32.2 g/dL (32.0-36.0); MEAN CORPUSCULAR VOLUME 92 fl (80-97); PLATELET COUNT 107 10^3/uL (150-450); RED BLOOD COUNT 2.74 10^6/uL (3.72-5.28); RED CELL DISTRIBUTION WIDTH 16.3 % (11.5-14.0); WHITE BLOOD COUNT 20.3 10^3/uL (4.0-10.5)
[2018-08-10 22:25] LABS: ALANINE AMINOTRANSFERASE 26 U/L (9-52); ALKALINE PHOSPHATASE 118 U/L (38-126); ASPARTATE AMINO TRANSFERASE 25 U/L (14-36); BILIRUBIN,DIRECT 0.3 mg/dL (0.0-0.4); BILIRUBIN,TOTAL 0.4 mg/dL (0.2-1.3); BLOOD UREA NITROGEN 22 mg/dL (7-20); CALCIUM 7.7 mg/dL (8.4-10.2); GLUCOSE 130 mg/dL (75-110); POTASSIUM 3.3 mmol/L (3.6-5.0); TOTAL PROTEIN 5.5 g/dL (6.3-8.2)
[2018-08-10 22:31] LABS: CARBON DIOXIDE 39 mmol/L (22-30); CHLORIDE 98 mmol/L (98-107); SODIUM 140.7 mmol/L (137-145)
[2018-08-10 22:32] LABS: ANION GAP 4 (5-19)
[2018-08-10 22:38] LABS: ABSOLUTE MONOCYTES # (MANUAL) 1.2 10^3/uL (0.1-1.4); ABSOLUTE NEUTROPHILS# (MANUAL) 16.6 10^3/uL (1.7-8.2); BASOPHILS % (MANUAL) 0 % (0-2); EOSINOPHILS % (MANUAL) 2 % (0-6); LYMPHOCYTES % (MANUAL) 10 % (13-45); MONOCYTES % (MANUAL) 6 % (3-13); SEGMENTED NEUTROPHILS % (MAN) 82 % (42-78); TOTAL CELLS COUNTED 100
[2018-08-10 22:45] LABS: ANISOCYTOSIS 1+; PLATELET COMMENT DECREASED; POIKILOCYTOSIS SLIGHT; TOXIC GRANULATION SLIGHT
[2018-08-11 03:07] VITALS: BP 100/75
[2018-08-11] MEDS: PIPERACILLIN SODIUM/TAZOBACTAM 3.375 GM in NORMAL SALINE 100 ML IV SCH (03:50)
[2018-08-11] MEDS: DEXTROSE 5%-WATER 1000 ML 1,000 ML IV PRN (03:58)
[2018-08-11 05:26] LABS: ABSOLUTE LYMPHOCYTES (AUTO) 1.4 10^3/uL (0.5-4.7); ABSOLUTE MONOCYTES (AUTO) 0.8 10^3/uL (0.1-1.4); ABSOLUTE NEUT (AUTO) 14.1 10^3/uL (1.7-8.2); BASOPHILS % (AUTO) 0.1 % (0-2); EOSINOPHILS % (AUTO) 0.2 % (0-6); HEMATOCRIT 23.8 % (36.0-47.0); LYMPHOCYTES % (AUTO) 8.4 % (13-45); MEAN CORPUSCULAR HEMOGLOBIN 29.7 pg (27.0-33.4); MEAN CORPUSCULAR VOLUME 93 fl (80-97); MONOCYTES % (AUTO) 4.8 % (3-13); RED BLOOD COUNT 2.57 10^6/uL (3.72-5.28); RED CELL DISTRIBUTION WIDTH 16.4 % (11.5-14.0); SEGMENTED NEUTROPHILS % (AUTO) 86.5 % (42-78); TOTAL CELLS COUNTED % (AUTO) 100 %; WHITE BLOOD COUNT 16.3 10^3/uL (4.0-10.5)
[2018-08-11 05:53] LABS: ALANINE AMINOTRANSFERASE 21 U/L (9-52); ALBUMIN 1.9 g/dL (3.5-5.0); ALKALINE PHOSPHATASE 102 U/L (38-126); ANION GAP 6 (5-19); ASPARTATE AMINO TRANSFERASE 22 U/L (14-36); BILIRUBIN,DIRECT 0.3 mg/dL (0.0-0.4); BILIRUBIN,TOTAL 0.5 mg/dL (0.2-1.3); BLOOD UREA NITROGEN 24 mg/dL (7-20); CALCIUM 7.5 mg/dL (8.4-10.2); CARBON DIOXIDE 39 mmol/L (22-30); CHLORIDE 96 mmol/L (98-107); GLUCOSE 110 mg/dL (75-110); POTASSIUM 3.4 mmol/L (3.6-5.0); SODIUM 140.6 mmol/L (137-145); TOTAL PROTEIN 5.2 g/dL (6.3-8.2)
[2018-08-11 05:59] LABS: HEMOGLOBIN 7.6 g/dL (12.0-15.5)
[2018-08-11 06:00] LABS: PLATELET COUNT 84 10^3/uL (150-450)
--- NOTE | 2018-08-11 13:02 | Death Summary ---
Summary Date : 08/11/18 Time of :: 04:45 Autopsy: No Resuscitation Status: Do Not Resuscitate - Final Diagnosis (1) Acute hypercapnic respiratory failure Is this a current diagnosis for this admission?: Yes (2) Bilateral pneumonia Is this a current diagnosis for this admission?: Yes (3) Sepsis Is this a current diagnosis for this admission?: Yes (4) Chronic intestinal pseudo-obstruction Is this a current diagnosis for this admission?: Yes (5) Hypernatremia Is this a current diagnosis for this admission?: Yes (6) Hypoalbuminemia Is this a current diagnosis for this admission?: Yes (8) Anemia Is this a current diagnosis for this admission?: Yes Hospital Course:: [facility], she has advanced dementia, nonverbal, chronic pseudoobstruction of the colon, she was admitted initially for sepsis, Pseudomonas septicemia with associated urinary tract infection after consultation with the POA decision was made to make her comfort care status she was then transferred back to the [facility] on July 02, 2018. The POA change his mind, and, he requested that patient be readmitted to the hospital for management. She was essentially moribund not expected to do well, she was treated with IV antibiotic she 11/11/2017
[2018-08-11] MEDS ORDERED: VANCOMYCIN HCL 1,250 MG in DEXTROSE 5%-WATER 250 ML IV SCH (14:00)
== END 2018-08-11 07:00 | DRG 871 ==
LOC: ER 19:24 → EH 08-08 02:46 → 5 08-08 04:06
PROVIDERS: ADMIT Internal Medicine; ATTEND Internal Medicine
DX: A41.9 Sepsis, unspecified organism (principal); J18.9 Pneumonia, unspecified organism; J96.02 Acute respiratory failure with hypercapnia; E87.0 Hyperosmolality and hypernatremia; B37.49 Other urogenital candidiasis; Z66 Do not resuscitate; F03.90 Unspecified dementia, unspecified severity, without behavioral disturbance, psychotic disturbance, mood disturbance, and anxiety; E78.00 Pure hypercholesterolemia, unspecified; K59.8 Other specified functional intestinal disorders; E88.09 Other disorders of plasma-protein metabolism, not elsewhere classified; E87.6 Hypokalemia; D64.9 Anemia, unspecified; I10 Essential (primary) hypertension; G47.30 Sleep apnea, unspecified; E11.9 Type 2 diabetes mellitus without complications; K21.9 Gastro-esophageal reflux disease without esophagitis; M19.90 Unspecified osteoarthritis, unspecified site; F32.9 Major depressive disorder, single episode, unspecified; Z93.1 Gastrostomy status; Z79.891 Long term (current) use of opiate analgesic; Z95.0 Presence of cardiac pacemaker
CPT/HCPCS: 36415; 70450; 71045; 80048; 80053; 80076; 80202; 81001; 82550; 82553; 82803; 82962; 83036; 83605; 83690; 83735; 84439; 84443; 84484; 85025; 85610; 85730; 87040; 93005; 93010; 99285; J1450; J1650; J1815; J1956; J2543; J3370; J3480; J7060